=== PATIENT | male | born 1985 | race Caucasian/White ===

== ENCOUNTER 2016-03-24 22:11 | Inpatient (IN) | payer OTHER ==
[~2016-03-24] VITALS: Ht 172.7 cm; Wt 85.4 kg
[~2016-03-24 22:11] MED LIST: CITA20TA4 PO; PRAM0.256 PO; PROP20TA67 PO; PROP80TA2 PO
[2016-03-24] MEDS ORDERED: SODIUM CHLORIDE 0.9% 1000ML 1,000 ML IV STA ×2 (22:35→23:11)
[2016-03-24] MEDS ORDERED: LORAZEPAM 2 MG/ML 1 ML VIAL IV STA ×2 (22:35→23:50)
[2016-03-24 22:45] LABS: BASO % 0.4 %; BASO ABS # 0.03 K/uL (0-0.2); COMPLETE YES; HEMATOCRIT 43.8 % (42-52); IG% 0.1 %; LYMPH % 27.3 %; LYMPH ABS # 2.31 K/uL (1.2-3.4); MEAN CELL VOLUME 84.2 fL (80-100); MEAN CORPUSCULAR HEMOGLOBIN 30.6 pg (25-34); MEAN CORPUSCULAR HGB CONC 36.3 g/dl (32-36); MEAN PLATELET VOLUME 10.9 fL (7.4-10.4); NEUT % 61.2 %; PLATELET COUNT 301 K/uL (130-400); WHITE BLOOD COUNT 8.46 K/uL (4.8-10.8)
[2016-03-24] MEDS ORDERED: OMEP20TA74 PO (23:00)
[2016-03-24] MEDS ORDERED: NRV/10 PO (23:00)
[2016-03-24] MEDS ORDERED: MELA1TAB54 PO (23:00)
[2016-03-24] MEDS ORDERED: CTP1 PO (23:00)
[2016-03-24] MEDS ORDERED: ZLF/100 PO (23:00)
[2016-03-24] MEDS ORDERED: HYDR50CA2 PO (23:00)
[2016-03-24] MEDS ORDERED: IBUP-1451 PO (23:02)
[2016-03-24 23:05] LABS: ALT/SGPT 32 U/L (12-78); BLOOD UREA NITROGEN 14 mg/dl (7-18); BUN/CREATININE RATIO 7.9 (10-20); CALCIUM 10.1 mg/dl (8.5-10.1); CARBON DIOXIDE 23 mmol/L (21-32); CHLORIDE 105 mmol/L (98-107); GLUCOSE 71 mg/dl (70-99); MAGNESIUM 2.5 mg/dl (1.8-2.4); POTASSIUM 3.4 mmol/L (3.5-5.1); SODIUM 142 mmol/L (136-145)
[2016-03-24 23:13] LABS: ALKALINE PHOSPHATASE 93 U/L (45-117); AST/SGOT 34 U/L (15-37); CKMB/CK RATIO 0.8 (0-3.0)
[2016-03-24 23:17] LABS: INR 1.1 (0.9-1.1); PROTHROMBIN TIME (PATIENT) 11.7 SECONDS (9.0-12.0)
--- NOTE | 2016-03-24 23:48 | EMERGENCY ROOM VISIT NOTE ---
History Report prepared by Jean: Sierra Torres Under the Supervision of: Dr. Scott Goldman D.O. First contact with patient: 22:25 Chief Complaint: OTHER COMPLAINT Stated Complaint: HEAVY SWEAT History of Present Illness The patient is a 30 year old male who presents to the Emergency Room with complaints of increased severe sweating starting shortly [employer]PA[employer] WORK[employer]. The patient states that he was in a stressful situation at [employer] when he was accused of stealing electronics and then was confronted by the police. The patient states that when he becomes stressed he sometimes experiences a increase in diaphoresis and he has seen his PCP for this problem in the past. The patient states that he also was experiencing hypertension and that his diaphoresis could be caused from a medication interaction. He denies any headache, nausea, vomiting, abdominal pain, or any urinary symptoms. The patient states that he did drink some beer this morning but denies any other drug use today. The patient states that he does have a history of anxiety and depression but currently denies any suicidal or homicidal ideation. 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 A total of 10 systems reviewed and were otherwise negative. Past Medical & Surgical Medical Problems: (1) Alcohol withdrawal (2) Cocaine abuse (3) Depression (4) Marijuana abuse in remission Family History Cancer Diabetes mellitus Heart disease Hypertension Social History Smoking Status: Current Every Day Smoker Alcohol Use: occasionally Drug Use: marijuana Marital Status: single Housing Status: lives with family Occupation Status: employed Current/Historical Medications Scheduled Amlodipine Besylate (Amlodipine Besylate), 10 MG PO HS Bupropion HCl (Bupropion HCl Sr), 150 MG PO BID Clonidine HCl (Clonidine HCl), 0.1 MG PO DAILY Melatonin (Melatonin), 5 MG PO HS Omeprazole (Ra Omeprazole), 20 MG PO DAILY Sertraline HCl (Sertraline HCl), 100 MG PO DAILY Scheduled PRN Hydroxyzine Pamoate (Vistaril), 50 MG PO DAILY PRN for Anxiety Ibuprofen Tab (Motrin), 800 MG PO UD PRN for Pain Allergies Coded Allergies: No Known Allergies (Verified , 11/18/14) Physical Exam Vital Signs Date Time Temp Pulse Resp B/P Pulse Ox O2 Delivery O2 Flow Rate FiO2 03/25/16 01:16 102 22 03/25/16 01:11 102 22 03/25/16 01:06 100 24 03/25/16 01:01 103 19 03/25/16 00:56 102 23 03/25/16 00:51 104 18 03/25/16 00:46 102 23 03/25/16 00:41 103 15 03/25/16 00:36 105 19 03/25/16 00:31 104 19 03/25/16 00:26 102 26 03/25/16 00:21 103 23 03/25/16 00:16 103 17 03/25/16 00:11 105 19 03/25/16 00:06 112 15 03/25/16 00:01 107 20 03/24/16 23:56 108 21 03/24/16 23:51 109 15 03/24/16 23:46 104 16 03/24/16 23:46 104 17 142/103 98 Room Air 03/24/16 23:44 142/103 03/24/16 22:46 125 26 03/24/16 22:41 108 23 03/24/16 22:36 115 23 03/24/16 22:31 116 32 03/24/16 22:26 116 27 03/24/16 22:22 113 03/24/16 22:21 113 20 97 03/24/16 22:14 126/104 03/24/16 22:11 37.3 116 22 126/104 99 Room Air Physical Exam GENERAL: Patient is awake, alert, very anxious and restless appearing. EYES: The conjunctivae are clear. The pupils are round and reactive. EARS, NOSE, MOUTH AND THROAT: The nose is without any evidence of any deformity. Mucous membranes are moist tongue is midline NECK: The neck is nontender and supple. RESPIRATORY: Normal respiratory effort is noted there is no evidence of wheezing rhonchi or rales CARDIOVASCULAR: Tachycardic and regular rhythm. No murmurs were appreciated to auscultation. GASTROINTESTINAL: The abdomen is soft. Bowel sounds are present in all quadrants. Abdomen is nontender MUSCULOSKELETAL/EXTREMITIES: There is no evidence of gross deformity full range of motion is noted in the hips and shoulders SKIN: There is no obvious evidence of any rash. There are no petechiae, pallor or cyanosis noted. Cool and diaphoretic, no edema appreciated. NEUROLOGIC: Patient is awake alert and oriented x3 strength is symmetric patellar reflexes are 3+ bilaterally PSYCH: Patient was very anxious and restless appearing. Currently denies any suicidal or homicidal ideation. Appears very guarded and makes poor eye contact. Medical Decision & Procedures ER Provider Diagnostic Interpretation: X-ray results as stated below per interpretation by me: no definite infiltrate, no free air, no acute disease. Laboratory Results 03/24/16 22:05 Red Blood Count 5.20, Mean Corpuscular Volume 84.2, Mean Corpuscular Hemoglobin 30.6, Mean Corpuscular Hemoglobin Concent 36.3, Mean Platelet Volume 10.9, Neutrophils (%) (Auto) 61.2, Lymphocytes (%) (Auto) 27.3, Monocytes (%) (Auto) 9.0, Eosinophils (%) (Auto) 2.0, Basophils (%) (Auto) 0.4, Neutrophils # (Auto) 5.18, Lymphocytes # (Auto) 2.31, Monocytes # (Auto) 0.76, Eosinophils # (Auto) 0.17, Basophils # (Auto) 0.03 03/24/16 22:05 Test 03/24/16 22:05 03/24/16 22:51 03/24/16 22:53 03/24/16 23:30 White Blood Count 8.46 K/uL (4.8-10.8) Red Blood Count 5.20 M/uL (4.7-6.1) Hemoglobin 15.9 g/dL (14.0-18.0) Hematocrit 43.8 % (42-52) Mean Corpuscular Volume 84.2 fL (80-100) Mean Corpuscular Hemoglobin 30.6 pg (25-34) Mean Corpuscular Hemoglobin Concent 36.3 g/dl (32-36) Platelet Count 301 K/uL (130-400) Mean Platelet Volume 10.9 fL (7.4-10.4) Neutrophils (%) (Auto) 61.2 % Lymphocytes (%) (Auto) 27.3 % Monocytes (%) (Auto) 9.0 % Eosinophils (%) (Auto) 2.0 % Basophils (%) (Auto) 0.4 % Neutrophils # (Auto) 5.18 K/uL (1.4-6.5) Lymphocytes # (Auto) 2.31 K/uL (1.2-3.4) Monocytes # (Auto) 0.76 K/uL (0.11-0.59) Eosinophils # (Auto) 0.17 K/uL (0-0.5) Basophils # (Auto) 0.03 K/uL (0-0.2) RDW Standard Deviation 41.0 fL (36.4-46.3) RDW Coefficient of Variation 13.5 % (11.5-14.5) Immature Granulocyte % (Auto) 0.1 % Immature Granulocyte # (Auto) 0.01 K/uL (0.00-0.02) Anion Gap 14.0 mmol/L (3-11) Est Creatinine Clear Calc Drug Dose 63.2 ml/min Estimated GFR () 56.5 Estimated GFR (Non- 48.7 BUN/Creatinine Ratio 7.9 (10-20) Calcium Level 10.1 mg/dl (8.5-10.1) Magnesium Level 2.5 mg/dl (1.8-2.4) Total Bilirubin 0.4 mg/dl (0.2-1) Direct Bilirubin 0.1 mg/dl (0-0.2) Aspartate Amino Transf (AST/SGOT) 34 U/L (15-37) Alanine Aminotransferase (ALT/SGPT) 32 U/L (12-78) Alkaline Phosphatase 93 U/L (45-117) Total Creatine Kinase 380 U/L (39-308) Creatine Kinase MB 3.2 ng/ml (0.5-3.6) Creatine Kinase MB Ratio 0.8 (0-3.0) Troponin I < 0.015 ng/ml (0-0.045) Total Protein 8.3 gm/dl (6.4-8.2) Albumin 4.5 gm/dl (3.4-5.0) Lipase 187 U/L (73-393) Thyroid Stimulating Hormone (TSH) 1.030 uIu/ml (0.300-4.500) Free Thyroxine 1.10 ng/dl (0.80-1.60) Ethyl Alcohol mg/dL < 3.0 mg/dl (0-3) Prothrombin Time 11.7 SECONDS (9.0-12.0) Prothromb Time International Ratio 1.1 (0.9-1.1) Activated Partial Thromboplast Time 27.0 SECONDS (21.0-31.0) Partial Thromboplastin Ratio 1.0 Urine Color YELLOW Urine Appearance CLEAR (CLEAR) Urine pH 5.0 (4.5-7.5) Urine Specific [place] 1.022 (1.000-1.030) Urine Protein NEG (NEG) Urine Glucose (UA) NEG (NEG) Urine Ketones NEG (NEG) Urine Occult Blood NEG (NEG) Urine Nitrite NEG (NEG) Urine Bilirubin NEG (NEG) Urine Urobilinogen NEG (NEG) Urine Leukocyte Esterase SMALL (NEG) Urine WBC (Auto) 10-30 /hpf (0-5) Urine RBC (Auto) 0-4 /hpf (0-4) Urine Hyaline Casts (Auto) >30 /lpf (0-5) Urine Epithelial Cells (Auto) 20-30 /lpf (0-5) Urine Bacteria (Auto) 1+ (NEG) Urine Pathogenic Casts /lpf (0) Urine Mucus PRESENT (NONE PRSENT) Urine Opiates Screen POS (NEG) Urine Methadone, Qualitative NEG (NEG) Urine Barbiturates NEG (NEG) Ur Amphetamine/Methamphetamine POS (NEG) MDMA (Ecstasy) Screen POS (NEG) Urine Benzodiazepines Screen NEG (NEG) Urine Cocaine Metabolite NEG (NEG) Urine Marijuana (THC) POS (NEG) Laboratory results per my review. Medications Administered Medications (Trade) Dose Ordered Sig/Cathie Route Start Time Stop Time Status Last Admin Dose Admin Sodium Chloride (Nss 1000ml) 1,000 ml @ 999 mls/hr Q1H1M STAT IV 03/24/16 22:35 03/24/16 23:35 DC 03/24/16 23:10 999 MLS/HR Lorazepam 1 mg 1 mg NOW STAT IV 03/24/16 22:35 03/24/16 22:38 DC 03/24/16 23:10 1 MG Sodium Chloride (Nss 1000ml) 1,000 ml @ 999 mls/hr Q1H1M STAT IV 03/24/16 23:11 03/25/16 00:11 DC 03/24/16 23:49 999 MLS/HR Lorazepam (Ativan Inj) 1 mg NOW STAT IV 03/24/16 23:50 03/24/16 23:51 DC 03/24/16 23:55 1 MG Ceftriaxone Sodium (Rocephin Inj) 1 gm NOW STAT IV 03/25/16 00:26 03/25/16 00:27 DC 03/25/16 00:31 1 GM ECG Indication: diaphoresis Rate (beats per minute): 125 Rhythm: normal sinus Findings: no acute ischemic change, no ectopy Comparison ECG Date: November 18, 2014 Change: increase rate from previous ECG. ED Course 2229: The patient was evaluated in room C10. A complete history and physical examination were performed. 2235: Ordered Ativan Inj 1 mg IV, NSS 1,000 ml @ 999 mls/hr IV, NSS 1,000 ml @ 999 mls/hr IV, 2345: I reevaluated the patient and he was hemodynamically stable. 2350: Ordered Ativan Inj 1 mg IV. 6: Ordered Rocephin Inj 1 gm IV. 0:I discussed the case with [facility]. He agreed to evaluate the patient for further management and care. Medical Decision Differential diagnosis: Etiologies such as mood disorder, infection, hypoglycemia, electrolyte abnormalities, cardiac sources, intracerebral event, toxicologic, neurologic, as well as others were entertained. Nursing notes reviewed. Additional history is obtained from the prehospital personnel. The patient is a 30-year-old male who presented to the emergency department for an evaluation of diaphoresis. The patient was severely diaphoretic. He had hyperreflexia as well. At this time I would suspect this is toxic metabolic in nature. The patient was treated with IV fluids as well as IV benzodiazepines. He was also started on IV antibiotics for presumed urinary tract infection. I discussed the patient's laboratory and radiographic studies with him. He was reevaluated multiple times. He responded well to the IV benzodiazepine. I do feel that the patient's toxicology screen could explain some of his symptoms. Because the patient's elevated creatinine I also discussed his case with the on- call [facility] hospitalist group. They've agreed to evaluate the patient in the emergency department for further management and disposition. Consults Time Called: [phone] Consulting Physician: Dr. Kala FULTON Hospitalist Returned Call: [phone] I discussed the case with Dr. [facility]. He agreed to evaluate the patient for further management and care. Impression Primary Impression: Anxiety Additional Impressions: Diaphoresis Dehydration Acute kidney injury Drug abuse Possible Medicato Reaction Scribe Attestation The scribe's documentation has been prepared under my direction and personally reviewed by me in its entirety. I confirm that the note above accurately reflects all work, treatment, procedures, and medical decision making performed by me. Departure Information Dispostion Being Evaluated By Hospitalist Referrals Anshu Inman D.O.Int.Med. (PCP) Problem Qualifiers
[2016-03-25] VITALS (10 sets, daily range): BP systolic 122–156; BP diastolic 75–120; PULSE 80–105; TEMP 36.5–36.8; O2SAT 93–99; Ht 172.7 cm; Wt 85.4 kg
[2016-03-25 00:05] LABS: URINE APPEARANCE CLEAR (CLEAR); URINE BILIRUBIN NEG (NEG); URINE COLOR YELLOW; URINE EPITHELIAL CELL AUTO 20-30 /lpf (0-5); URINE NITRITE NEG (NEG); URINE SPECIFIC GRAVITY 1.022 (1.000-1.030); UROBILINOGEN NEG (NEG)
[2016-03-25 00:07] LABS: MANUAL MICROSCOPIC REQUIRED? NO; REVIEW REQ? YES
[2016-03-25 00:21] LABS: URINE MUCUS PRESENT (NONE PRSENT)
[2016-03-25] MEDS ORDERED: CEFTRIAXONE SOD INJ 1 GM ADDVIAL IV STA (00:26)
[2016-03-25 00:27] LABS: BENZODIAZEPINE, URINE NEG (NEG); COCAINE,URINE NEG (NEG); PHENCYCLIDINE, URINE POS (NEG)
[2016-03-25] MEDS ORDERED: ZOLPIDEM TARTRATE 5 MG TAB PO PRN (01:30)
[2016-03-25] MEDS ORDERED: hydrOXYzine HCL 25 MG TAB PO PRN (01:30)
[2016-03-25] MEDS ORDERED: ONDANSETRON INJ 2 MG/ML 2 ML VIAL IV PRN (01:30)
[2016-03-25] MEDS ORDERED: ACETAMINOPHEN 325 MG TAB PO PRN (01:30)
[2016-03-25] MEDS ORDERED: IV FLUIDS COMPLETED PRN (01:45)
[2016-03-25] MEDS: NSS + 20MEQ KCL 1000ML 1,000 ML IV SCH ×2 (02:31→08:41)
--- NOTE | 2016-03-25 06:43 | History and Physical ---
History & Physical Date & Time of Service: Mar 25, 2016 at 06:34 Chief Complaint: Acute Kidney Injury, Dehydration Primary Care Physician: Anshu Inman D.O.Int.Med. History of Present Illness Source: patient The patient is a 30-year-old male who presents emergency department with complaint of increased severe sweating that began just prior to arrival. He reportedly was in a stressful situation at [employer] is accused of stealing electronics was a confirmed by police. The patient reports that he not uncommonly has increase in sweating during stressful situations, and is been seen by his PCP in the past. The patient reports he drank beer earlier in the morning, but denies any other drug use today he has history of anxiety and depression has never had any issues with suicidal or homicidal ideation. Past Medical/Surgical History Medical Problems: (1) Cocaine abuse Status: Resolved (2) Depression Status: Chronic (3) Marijuana abuse in remission Status: Resolved Family History Cancer Diabetes mellitus Heart disease Hypertension Social History Smoking Status: Current Every Day Smoker Smokeless Tobacco Use: No Alcohol Use: none Drug Use: marijuana Marital Status: single Occupational Status: employed Immunizations History of Tetanus Vaccine?: DATE UNKNOWN History of Pneumococcal: No History of Hepatitis B Vaccine: No Multi-Drug Resistant Organisms History of MDRO: No Allergies Coded Allergies: No Known Allergies (Verified , 11/18/14) Home Medications Scheduled Amlodipine Besylate (Amlodipine Besylate), 10 MG PO HS Bupropion HCl (Bupropion HCl Sr), 150 MG PO BID Clonidine HCl (Clonidine HCl), 0.1 MG PO DAILY Melatonin (Melatonin), 5 MG PO HS Omeprazole (Ra Omeprazole), 20 MG PO DAILY Sertraline HCl (Sertraline HCl), 100 MG PO DAILY Scheduled PRN Hydroxyzine Pamoate (Vistaril), 50 MG PO DAILY PRN for Anxiety Ibuprofen Tab (Motrin), 800 MG PO UD PRN for Pain Review of Systems The patient denies chest pain, palpitations, shortness of breath, cough, lower extremity swelling, vision change, hearing change, sore throat, fevers, chills, weight change, fatigue, nausea, vomiting, abdominal pain, pelvic pain, blood in urine or stool, dysuria, urinary frequency or urgency, headache, memory loss, rash, abnormal bruising or bleeding, imbalance, focal or generalized weakness, numbness or tingling in arms or legs, arthralgias or myalgias, back or neck pain. The review of systems is otherwise negative other than for that already noted above, and at least 10 systems have been reviewed. Physical Exam Vital Signs Date Time Temp Pulse Resp B/P Pulse Ox O2 Delivery O2 Flow Rate FiO2 03/25/16 04:50 36.8 102 18 148/97 98 Room Air 03/25/16 04:00 Room Air 03/25/16 01:50 36.8 105 20 122/75 96 Room Air 03/25/16 01:42 103 23 129/98 96 03/25/16 01:16 102 22 03/25/16 01:11 102 22 03/25/16 01:06 100 24 03/25/16 01:01 103 19 03/25/16 00:56 102 23 03/25/16 00:51 104 18 03/25/16 00:46 102 23 03/25/16 00:41 103 15 03/25/16 00:36 105 19 03/25/16 00:31 104 19 03/25/16 00:26 102 26 03/25/16 00:21 103 23 03/25/16 00:16 103 17 03/25/16 00:11 105 19 03/25/16 00:06 112 15 03/25/16 00:01 107 20 03/24/16 23:56 108 21 03/24/16 23:51 109 15 03/24/16 23:46 104 16 03/24/16 23:46 104 17 142/103 98 Room Air 03/24/16 23:44 142/103 03/24/16 22:46 125 26 03/24/16 22:41 108 23 03/24/16 22:36 115 23 03/24/16 22:31 116 32 03/24/16 22:26 116 27 03/24/16 22:22 113 03/24/16 22:21 113 20 97 03/24/16 22:14 126/104 03/24/16 22:11 37.3 116 22 126/104 99 Room Air The patient is awake, well-developed and adequately nourished, alert and oriented 3, normocephalic and atraumatic, lying in bed and in no acute distress with mild to moderate perspiration. HEENT--PERRL, EOMI, mucous membranes moist, and oropharynx normal. Neck--supple, no JVD or bruits, thyroid normal, trachea midline, no adenopathy. Heart--normal S1 and S2, no extra beats, no murmurs, rubs or gallops. Lungs--clear bilaterally with good air movement, no respiratory distress, no accessory muscle use. Abdomen--normal bowel sounds and soft, nontender and nondistended, no hernias or masses, no organomegaly. Extremities--no cyanosis, clubbing or edema. There are good distal pulses b/l. Dermatologic--normal skin turgor, normal color, warm and dry, no abnormal lymph nodes, no rash. Neurologic--cranial nerves II through XII grossly intact, motor and sensory examination normal, vestibular function is normal. Rheumatologic--normal range of motion, nontender, muscles and joints. Psychiatric--normal affect. Diagnostics Laboratory Results Results Past 24 Hours Test 03/24/16 22:05 03/24/16 22:51 03/24/16 22:53 03/24/16 23:30 Range/Units White Blood Count 8.46 4.8-10.8 K/uL Red Blood Count 5.20 4.7-6.1 M/uL Hemoglobin 15.9 14.0-18.0 g/dL Hematocrit 43.8 42-52 % Mean Corpuscular Volume 84.2 80-100 fL Mean Corpuscular Hemoglobin 30.6 25-34 pg Mean Corpuscular Hemoglobin Concent 36.3 32-36 g/dl Platelet Count 301 130-400 K/uL Mean Platelet Volume 10.9 7.4-10.4 fL Neutrophils (%) (Auto) 61.2 % Lymphocytes (%) (Auto) 27.3 % Monocytes (%) (Auto) 9.0 % Eosinophils (%) (Auto) 2.0 % Basophils (%) (Auto) 0.4 % Neutrophils # (Auto) 5.18 1.4-6.5 K/uL Lymphocytes # (Auto) 2.31 1.2-3.4 K/uL Monocytes # (Auto) 0.76 0.11-0.59 K/uL Eosinophils # (Auto) 0.17 0-0.5 K/uL Basophils # (Auto) 0.03 0-0.2 K/uL RDW Standard Deviation 41.0 36.4-46.3 fL RDW Coefficient of Variation 13.5 11.5-14.5 % Immature Granulocyte % (Auto) 0.1 % Immature Granulocyte # (Auto) 0.01 0.00-0.02 K/uL Sodium Level 142 136-145 mmol/L Potassium Level 3.4 3.5-5.1 mmol/L Chloride Level 105 98-107 mmol/L Carbon Dioxide Level 23 21-32 mmol/L Anion Gap 14.0 3-11 mmol/L Blood Urea Nitrogen 14 7-18 mg/dl Creatinine 1.80 0.60-1.40 mg/dl Est Creatinine Clear Calc Drug Dose 63.2 ml/min Estimated GFR () 56.5 Estimated GFR (Non- 48.7 BUN/Creatinine Ratio 7.9 10-20 Random Glucose 71 70-99 mg/dl Calcium Level 10.1 8.5-10.1 mg/dl Magnesium Level 2.5 1.8-2.4 mg/dl Total Bilirubin 0.4 0.2-1 mg/dl Direct Bilirubin 0.1 0-0.2 mg/dl Aspartate Amino Transf (AST/SGOT) 34 15-37 U/L Alanine Aminotransferase (ALT/SGPT) 32 12-78 U/L Alkaline Phosphatase 93 45-117 U/L Total Creatine Kinase 380 39-308 U/L Creatine Kinase MB 3.2 0.5-3.6 ng/ml Creatine Kinase MB Ratio 0.8 0-3.0 Troponin I < 0.015 0-0.045 ng/ml Total Protein 8.3 6.4-8.2 gm/dl Albumin 4.5 3.4-5.0 gm/dl Lipase 187 73-393 U/L Thyroid Stimulating Hormone (TSH) 1.030 0.300-4.500 uIu/ml Free Thyroxine 1.10 0.80-1.60 ng/dl Ethyl Alcohol mg/dL < 3.0 0-3 mg/dl Prothrombin Time 11.7 9.0-12.0 SECONDS Prothromb Time International Ratio 1.1 0.9-1.1 Activated Partial Thromboplast Time 27.0 21.0-31.0 SECONDS Partial Thromboplastin Ratio 1.0 Urine Color YELLOW Urine Appearance CLEAR CLEAR Urine pH 5.0 4.5-7.5 Urine Specific [place] 1.022 1.000-1.030 Urine Protein NEG NEG Urine Glucose (UA) NEG NEG Urine Ketones NEG NEG Urine Occult Blood NEG NEG Urine Nitrite NEG NEG Urine Bilirubin NEG NEG Urine Urobilinogen NEG NEG Urine Leukocyte Esterase SMALL NEG Urine WBC (Auto) 10-30 0-5 /hpf Urine RBC (Auto) 0-4 0-4 /hpf Urine Hyaline Casts (Auto) >30 0-5 /lpf Urine Epithelial Cells (Auto) 20-30 0-5 /lpf Urine Bacteria (Auto) 1+ NEG Urine Pathogenic Casts 0 /lpf Urine Mucus PRESENT NONE PRSENT Urine Opiates Screen POS NEG Urine Methadone, Qualitative NEG NEG Urine Barbiturates NEG NEG Urine Phencyclidine (PCP) Level POS NEG Ur Amphetamine/Methamphetamine POS NEG MDMA (Ecstasy) Screen POS NEG Urine Benzodiazepines Screen NEG NEG Urine Cocaine Metabolite NEG NEG Urine Marijuana (THC) POS NEG Microbiology Results 03/24/16 Urine Culture, Received Pending CXR normal EKG EKG shows sinus tachycardia 112 bpm, there are no acute ST-T changes. Impression Assessment and Plan Increased sweating/sinus tachycardia/acute renal insufficiency/hypokalemia/ urine drug screen positive for opiates, PCP, amphetamines, MDMA and marijuana-- the patient will be admitted to the telemetry unit, for cardiac rhythm monitoring, and possible drug withdrawal effects. He'll be placed on normal saline with potassium chloride 20 mEq at 200 ML's per hour. Follow serial CBC with differential PRP and magnesium levels. Hypertension--continue amlodipine 10 mg by mouth at bedtime and clonidine 0.1 mg by mouth daily. GERD-change omeprazole 20 mg by mouth daily to pantoprazole 40 mg by mouth daily. Anxiety--continue sertraline 100 mg by mouth daily, bupropion SR 150 mg by mouth twice a day and melatonin 5 mg by mouth at bedtime. Also continue hydroxyzine 50 mg by mouth daily when necessary. Tobacco use disorder with multi-substance abuse--counseling will be necessary. Level of Care Telemetry Advanced Directives Existing Advance Directive: No Existing Living Will: No Existing Power of Call Worker Person: No Resuscitation Status FULL RESUSCITATION VTE Prophylaxis VTE Risk Assessment Done? Y/N: Yes Risk Level: Low Given or contraindicated: SCD's Social Service Consult None Apply
--- NOTE | 2016-03-25 07:03 | DIAGNOSTIC IMAGING REPORT ---
CHEST ONE VIEW PORTABLE CLINICAL HISTORY: anxiety COMPARISON STUDY: 11/18/2014 FINDINGS: The cardiac and mediastinal contours are normal. There is no evidence of focal pulmonary consolidation. There is no evidence of failure. No pleural effusions are visualized.[ IMPRESSION: No active disease in the chest. Electronically signed by: Lorenzo Roth M.D. 03/25/2016 7:01 AM Dictated Date/Time: 03/25/2016 7:01 AM
[2016-03-25] MEDS: SERTRALINE HCL 100 MG TAB PO SCH (07:49)
[2016-03-25] MEDS: PANTOprazole SOD 40 MG TAB PO SCH (07:49)
[2016-03-25] MEDS: AMLODIPINE BESYLATE 5 MG TAB PO SCH (07:50)
[2016-03-25] MEDS: BuPROPion SR 150 MG TABCR PO SCH ×2 (07:50→20:37)
[2016-03-25] MEDS ORDERED: CLONIDINE HCL 0.1 MG TAB PO SCH (09:00)
[2016-03-25] MEDS ORDERED: CLONAZEPAM 0.5 MG TAB PO STA (12:24)
--- NOTE | 2016-03-25 12:28 | Progress Note ---
Subjective Date of Service: Mar 25, 2016. Subjective increased sweating and pressured speech no further breathing issues Problem List Medical Problems: (1) Acute kidney injury Status: Acute (2) Anxiety Status: Acute (3) Dehydration Status: Acute (4) Diaphoresis Status: Acute (5) Drug abuse Status: Acute Review of Systems Constitutional: + chills, + fever, + weakness Cardiac: + chest pain, + claudication, + edema Abdomen: + diarrhea, + nausea, + pain, + vomiting Male : + dysuria, + urinary frequency Psychiatric: + anxiety, + substance abuse Objective Vital Signs Date Time Temp Pulse Resp B/P Pulse Ox O2 Delivery O2 Flow Rate FiO2 03/25/16 12:00 98 Room Air 03/25/16 11:00 36.6 94 20 156/108 99 Room Air 03/25/16 08:00 98 Room Air 03/25/16 07:41 36.7 95 20 149/120 98 Room Air 149/100 03/25/16 04:50 36.8 102 18 148/97 98 Room Air 03/25/16 04:00 Room Air 03/25/16 01:50 36.8 105 20 122/75 96 Room Air 03/25/16 01:42 103 23 129/98 96 03/25/16 01:16 102 22 03/25/16 01:11 102 22 03/25/16 01:06 100 24 03/25/16 01:01 103 19 03/25/16 00:56 102 23 03/25/16 00:51 104 18 03/25/16 00:46 102 23 03/25/16 00:41 103 15 03/25/16 00:36 105 19 03/25/16 00:31 104 19 03/25/16 00:26 102 26 03/25/16 00:21 103 23 03/25/16 00:16 103 17 03/25/16 00:11 105 19 03/25/16 00:06 112 15 03/25/16 00:01 107 20 03/24/16 23:56 108 21 03/24/16 23:51 109 15 03/24/16 23:46 104 16 03/24/16 23:46 104 17 142/103 98 Room Air 03/24/16 23:44 142/103 03/24/16 22:46 125 26 03/24/16 22:41 108 23 03/24/16 22:36 115 23 03/24/16 22:31 116 32 03/24/16 22:26 116 27 03/24/16 22:22 113 03/24/16 22:21 113 20 97 03/24/16 22:14 126/104 03/24/16 22:11 37.3 116 22 126/104 99 Room Air Physical Exam General Appearance: WD/WN, + mild distress Eyes: PERRL, EOMI Neck: supple, no JVD Respiratory/Chest: chest non-tender, lungs clear, normal breath sounds Cardiovascular: regular rate, rhythm, no murmur Abdomen: normal bowel sounds, non tender, soft Neurologic/Psychiatric: alert, oriented x 3 Laboratory Results Last 24 Hours Test 03/24/16 22:05 03/24/16 22:51 03/24/16 22:53 03/24/16 23:30 White Blood Count 8.46 K/uL Red Blood Count 5.20 M/uL Hemoglobin 15.9 g/dL Hematocrit 43.8 % Mean Corpuscular Volume 84.2 fL Mean Corpuscular Hemoglobin 30.6 pg Mean Corpuscular Hemoglobin Concent 36.3 g/dl Platelet Count 301 K/uL Mean Platelet Volume 10.9 fL Neutrophils (%) (Auto) 61.2 % Lymphocytes (%) (Auto) 27.3 % Monocytes (%) (Auto) 9.0 % Eosinophils (%) (Auto) 2.0 % Basophils (%) (Auto) 0.4 % Neutrophils # (Auto) 5.18 K/uL Lymphocytes # (Auto) 2.31 K/uL Monocytes # (Auto) 0.76 K/uL Eosinophils # (Auto) 0.17 K/uL Basophils # (Auto) 0.03 K/uL RDW Standard Deviation 41.0 fL RDW Coefficient of Variation 13.5 % Immature Granulocyte % (Auto) 0.1 % Immature Granulocyte # (Auto) 0.01 K/uL Sodium Level 142 mmol/L Potassium Level 3.4 mmol/L Chloride Level 105 mmol/L Carbon Dioxide Level 23 mmol/L Anion Gap 14.0 mmol/L Blood Urea Nitrogen 14 mg/dl Creatinine 1.80 mg/dl Est Creatinine Clear Calc Drug Dose 63.2 ml/min Estimated GFR () 56.5 Estimated GFR (Non- 48.7 BUN/Creatinine Ratio 7.9 Random Glucose 71 mg/dl Calcium Level 10.1 mg/dl Magnesium Level 2.5 mg/dl Total Bilirubin 0.4 mg/dl Direct Bilirubin 0.1 mg/dl Aspartate Amino Transf (AST/SGOT) 34 U/L Alanine Aminotransferase (ALT/SGPT) 32 U/L Alkaline Phosphatase 93 U/L Total Creatine Kinase 380 U/L Creatine Kinase MB 3.2 ng/ml Creatine Kinase MB Ratio 0.8 Troponin I < 0.015 ng/ml Total Protein 8.3 gm/dl Albumin 4.5 gm/dl Lipase 187 U/L Thyroid Stimulating Hormone (TSH) 1.030 uIu/ml Free Thyroxine 1.10 ng/dl Ethyl Alcohol mg/dL < 3.0 mg/dl Prothrombin Time 11.7 SECONDS Prothromb Time International Ratio 1.1 Activated Partial Thromboplast Time 27.0 SECONDS Partial Thromboplastin Ratio 1.0 Urine Color YELLOW Urine Appearance CLEAR Urine pH 5.0 Urine Specific [place] 1.022 Urine Protein NEG Urine Glucose (UA) NEG Urine Ketones NEG Urine Occult Blood NEG Urine Nitrite NEG Urine Bilirubin NEG Urine Urobilinogen NEG Urine Leukocyte Esterase SMALL Urine WBC (Auto) 10-30 /hpf Urine RBC (Auto) 0-4 /hpf Urine Hyaline Casts (Auto) >30 /lpf Urine Epithelial Cells (Auto) 20-30 /lpf Urine Bacteria (Auto) 1+ Urine Pathogenic Casts /lpf Urine Mucus PRESENT Urine Opiates Screen POS Urine Methadone, Qualitative NEG Urine Barbiturates NEG Urine Phencyclidine (PCP) Level POS Ur Amphetamine/Methamphetamine POS MDMA (Ecstasy) Screen POS Urine Benzodiazepines Screen NEG Urine Cocaine Metabolite NEG Urine Marijuana (THC) POS Assessment and Plan Increased sweating/sinus tachycardia/acute renal insufficiency/hypokalemia/ urine drug screen positive for opiates, PCP, amphetamines, MDMA and marijuana- possible drug withdrawal effects. PT is anxious and will attempt to control symptoms by adding some librium and clonidine increase Hypertension--continue amlodipine 10 mg by mouth at bedtime and clonidine 0.1 mg by mouth daily. GERD-change omeprazole 20 mg by mouth daily to pantoprazole 40 mg by mouth daily. Anxiety--continue sertraline 100 mg by mouth daily, bupropion SR 150 mg by mouth twice a day and melatonin 5 mg by mouth at bedtime. Also continue hydroxyzine 50 mg by mouth daily when necessary. Tobacco use disorder with multi-substance abuse--counseling will be necessary.
[2016-03-25] MEDS ORDERED: CLONAZEPAM 1 MG TAB PO PRN (12:30)
[2016-03-25] MEDS: CHLORDIAZEPOXIDE 25 MG CAP PO SCH ×2 (13:19→20:37)
[2016-03-25] MEDS: CLONIDINE HCL 0.1 MG TAB PO SCH (20:38)
[2016-03-25] MEDS ORDERED: NON-FORMULARY MEDICATION (Melatonin 5 MG) PO SCH (21:00)
[2016-03-26 04:08] VITALS: BP 128/85; PULSE 77; TEMP 36.6; O2SAT 97
[2016-03-26 07:08] LABS: BASO % 0.5 %; BASO ABS # 0.03 K/uL (0-0.2); COMPLETE YES; EOS % 4.5 %; HEMATOCRIT 43.6 % (42-52); IG% 0.2 %; LYMPH % 26.6 %; LYMPH ABS # 1.72 K/uL (1.2-3.4); MEAN CELL VOLUME 87.2 fL (80-100); MEAN CORPUSCULAR HGB CONC 34.4 g/dl (32-36); MEAN PLATELET VOLUME 10.2 fL (7.4-10.4); MONO % 9.4 %; NEUT % 58.8 %; PLATELET COUNT 216 K/uL (130-400); WHITE BLOOD COUNT 6.47 K/uL (4.8-10.8)
[2016-03-26 07:16] LABS: PARTIAL THROMBOPLASTIN RATIO 1.1; PROTHROMBIN TIME (PATIENT) 11.1 SECONDS (9.0-12.0)
[2016-03-26 07:40] VITALS: BP 139/91; PULSE 81; TEMP 36.7; O2SAT 97
[2016-03-26 07:49] LABS: ALKALINE PHOSPHATASE 86 U/L (45-117); ALT/SGPT 31 U/L (12-78); AST/SGOT 18 U/L (15-37); BLOOD UREA NITROGEN 11 mg/dl (7-18); BUN/CREATININE RATIO 10.9 (10-20); CALCIUM 9.2 mg/dl (8.5-10.1); CARBON DIOXIDE 28 mmol/L (21-32); CHLORIDE 106 mmol/L (98-107); GLUCOSE 83 mg/dl (70-99); MAGNESIUM 2.6 mg/dl (1.8-2.4); POTASSIUM 4.3 mmol/L (3.5-5.1); SODIUM 142 mmol/L (136-145)
[2016-03-26] MEDS: PANTOprazole SOD 40 MG TAB PO SCH (08:08)
[2016-03-26] MEDS: AMLODIPINE BESYLATE 5 MG TAB PO SCH (08:08)
[2016-03-26] MEDS: BuPROPion SR 150 MG TABCR PO SCH (08:08)
[2016-03-26] MEDS: CLONIDINE HCL 0.1 MG TAB PO SCH (08:09)
[2016-03-26] MEDS: CHLORDIAZEPOXIDE 25 MG CAP PO SCH ×2 (08:09→13:42)
[2016-03-26] MEDS: SERTRALINE HCL 100 MG TAB PO SCH (08:09)
[2016-03-26] MEDS ORDERED: LBR25 PO (08:32)
[2016-03-26] MEDS ORDERED: CTP1 PO (08:32)
--- NOTE | 2016-03-26 08:34 | Discharge Instructions ---
Discharge Instructions Admission Reason for Admission: Alcohol Withdrawal Discharge Discharge Diagnosis / Problem: anxiety, withdrawal Discharge Goals Goal(s): Diagnostic testing, Therapeutic intervention Activity Recommendations Activity Limitations: resume your previous activity . Instructions / Follow-Up Instructions / Follow-Up Please see DR Inman this week before your prescrition runs out please take no medicines, over the counter or otherwise, except what is listed on your discharge Current Hospital Diet Patient's current hospital diet: Regular Diet Discharge Diet Recommended Diet: Regular Diet Pending Studies Studies pending at discharge: no Medical Emergencies . Who to Call and When: Medical Emergencies: If at any time you feel your situation is an emergency, please call 911 immediately. . Non-Emergent Contact Non-Emergency issues call your: Primary Care Provider . . "Provider Documentation" section prepared by Shamar Longo. VTE Core Measure Inpt VTE Proph given/why not?: SCD's
[2016-03-26 09:14] VITALS: BP 139/91; PULSE 81; TEMP 36.7; O2SAT 97
--- NOTE | 2016-03-26 10:43 | Discharge Summary ---
Discharge Summary Admission Date: Mar 25, 2016 at 15:18 Discharge Date: Mar 26, 2016 Discharge Disposition: Home Principal Diagnosis: withdrawal symptoms Immunizations: History of Tetanus Vaccine?: DATE UNKNOWN History of Pneumococcal: No History of Hepatitis B Vaccine: No Medication Reconciliation New Medications: Chlordiazepoxide (Chlordiazepoxide HCl) 25 Mg Cap 25 MG PO UD, #18 CAP 3x's a day for three days then 2x's a day for three days then once at bedtime for three days Changed Medications: Clonidine HCl (Clonidine HCl) 0.1 Mg Tab 0.1 MG PO BID, #60 DOSE 3 Refills (Changed from: DAILY; Refills: ) Continued Medications: Amlodipine Besylate (Amlodipine Besylate) 10 Mg Tab 10 MG PO HS Bupropion HCl (Bupropion HCl Sr) 150 Mg Tabcr 150 MG PO BID Ibuprofen Tab (Motrin) 800 Mg Tab 800 MG PO UD PRN for Pain, TAB TAKE DIRECTED Melatonin (Melatonin) 5 Mg Tab 5 MG PO HS Omeprazole (Ra Omeprazole) 20 Mg Tab 20 MG PO DAILY Sertraline HCl (Sertraline HCl) 100 Mg Tab 100 MG PO DAILY Discontinued Medications: Hydroxyzine Pamoate (Vistaril) 50 Mg Cap 50 MG PO DAILY PRN for Anxiety Discharge Exam Review of Systems: Constitutional: No chills, No fever Respiratory: No cough, No sputum Cardiovascular: No chest pain, No orthopnea Abdomen: No nausea, No pain Musculoskeletal: No joint pain, No muscle pain Neurologic: No memory loss, No paralysis Psychiatric: No anhedonism, No depression symptoms Physical Exam: General Appearance: WD/WN, no apparent distress Eyes: PERRL, EOMI Neck: supple, no JVD Respiratory/Chest: chest non-tender, lungs clear, normal breath sounds Cardiovascular: regular rate, rhythm, no murmur Abdomen / GI: normal bowel sounds, non tender, soft Hospital Course 30 M with multiple substances on tox screen here with Increased sweating/sinus tachycardia/acute renal insufficiency/hypokalemia Drug withdrawal effects. PT is anxious and able control symptoms by adding some librium and clonidine increase, will have home on tapering librium but campbell instructions to see pcp for further management and possible referal to outpt treatment of substance issues Hypertension--continue amlodipine 10 mg by mouth at bedtime and clonidine 0.1 mg bid GERD-change omeprazole 20 mg Anxiety--continue sertraline 100 mg by mouth daily, bupropion SR 150 mg by mouth twice a day and melatonin 5 mg by mouth at bedtime. Tobacco use disorder with multi-substance abuse--counseling will be necessary. Total Time Spent: Greater than 30 minutes This includes examination of the patient, discharge planning, medication reconciliation, and communication with other providers. Discharge Instructions Please refer to the electronic Patient Visit Report (Discharge Instructions) for additional information.
[2016-03-26 11:41] VITALS: BP 127/84; PULSE 71; TEMP 36.9; O2SAT 98
[2016-03-29 04:25] LABS: COD UR NEGATIVE NG/ML (CUTOFF=50); HYDROCOD UR NEGATIVE NG/ML (CUTOFF=50); HYDROMOR UR NEGATIVE NG/ML (CUTOFF=50); MORPHINE UR NEGATIVE NG/ML (CUTOFF=50); NORHYDROCODONE CONF UR NEGATIVE NG/ML (CUTOFF=50); OXYMORPH UR NEGATIVE NG/ML (CUTOFF=50)
[2016-03-30 13:33] LABS: SYNTHETIC CANNABINOIDS QL URIN NEGATIVE (Negative)
== END 2016-03-26 14:37 | disposition home or self-care (01) | DRG 897 ==
LOC: ENRESERVDT → ENRESERVTM → EDBD 22:11 → C.EDC 22:13 → C.2T 03-25 01:26 → OBSVTOIN 03-25 15:18
PROVIDERS: ADMIT Hospitalist; ATTEND Internal Medicine
DX: F10.239 Alcohol dependence with withdrawal, unspecified (principal); N17.9 Acute kidney failure, unspecified; F41.9 Anxiety disorder, unspecified; F32.9 Major depressive disorder, single episode, unspecified; F19.939 Other psychoactive substance use, unspecified with withdrawal, unspecified; E86.0 Dehydration; E87.6 Hypokalemia; K21.9 Gastro-esophageal reflux disease without esophagitis; I10 Essential (primary) hypertension; F17.210 Nicotine dependence, cigarettes, uncomplicated; F19.10 Other psychoactive substance abuse, uncomplicated; R82.5 Elevated urine levels of drugs, medicaments and biological substances; R61 Generalized hyperhidrosis; R00.0 Tachycardia, unspecified; Z79.899 Other long term (current) drug therapy; Z79.1 Long term (current) use of non-steroidal anti-inflammatories (NSAID)

== ENCOUNTER 2016-04-01 02:34 | Emergency (ER) | payer OTHER ==
[~2016-04-01] VITALS: Ht 172.7 cm; Wt 87.0 kg
[~2016-04-01 02:34] MED LIST changes: -CITA20TA4 PO; +CTP1 PO; +IBUP-1451 PO; +LBR25 PO; +MELA1TAB54 PO; +NRV/10 PO; +OMEP20TA74 PO; -PRAM0.256 PO; -PROP20TA67 PO; -PROP80TA2 PO; +ZLF/100 PO
[2016-04-01] MEDS ORDERED: SODIUM CHLORIDE 0.9% 1000ML 1,000 ML IV STA (02:41)
[2016-04-01 03:07] VITALS: O2SAT 95
[2016-04-01 03:16] VITALS: TEMP 36.8; Ht 172.7 cm; Wt 87.0 kg
[2016-04-01 03:29] LABS: URINE APPEARANCE CLEAR (CLEAR); URINE BILIRUBIN NEG (NEG); URINE COLOR YELLOW; URINE NITRITE NEG (NEG); URINE SPECIFIC GRAVITY 1.002 (1.000-1.030); UROBILINOGEN NEG (NEG)
[2016-04-01 03:36] LABS: MANUAL MICROSCOPIC REQUIRED? NO; REVIEW REQ? NO
[2016-04-01 04:08] LABS: BASO % 0.4 %; BASO ABS # 0.02 K/uL (0-0.2); COMPLETE YES; EOS % 3.5 %; HEMATOCRIT 40.3 % (42-52); IG% 0.2 %; MEAN CELL VOLUME 87.2 fL (80-100); MEAN CORPUSCULAR HEMOGLOBIN 30.7 pg (25-34); MEAN CORPUSCULAR HGB CONC 35.2 g/dl (32-36); MEAN PLATELET VOLUME 10.4 fL (7.4-10.4); MONO % 8.1 %; NEUT % 50.8 %; PLATELET COUNT 212 K/uL (130-400); RED BLOOD COUNT 4.62 M/uL (4.7-6.1); WHITE BLOOD COUNT 5.67 K/uL (4.8-10.8)
--- NOTE | 2016-04-01 04:17 | EMERGENCY ROOM VISIT NOTE ---
History Report prepared by Jean: Carlos Byrne Under the Supervision of: Dr. Taz Quiñones M.D. First contact with patient: 02:37 Chief Complaint: OVERDOSE (INTENTIONAL) Stated Complaint: OVERDOSE History of Present Illness The patient is a 30 year old male who presents to the Emergency Room with complaints of an episode of intentional overdose occurring this evening. He reports he was drinking Robitussin earlier today. History is limited secondary to overdose. Source of History: patient History Limited By: other (overdose) Onset: this evening Position: other (global) Quality: other (intentional overdose) Timing: other (episode) Review of Systems Review of systems limited secondary to overdose. Past Medical & Surgical Medical Problems: (1) Alcohol withdrawal (2) Cocaine abuse (3) Depression (4) Marijuana abuse in remission Family History Cancer Diabetes mellitus Heart disease Hypertension Social History Smoking Status: Former Smoker Alcohol Use: occasionally Drug Use: marijuana Marital Status: single Housing Status: lives with family Occupation Status: employed Current/Historical Medications Scheduled Amlodipine Besylate (Amlodipine Besylate), 10 MG PO HS Bupropion HCl (Bupropion HCl Sr), 150 MG PO BID Chlordiazepoxide (Chlordiazepoxide HCl), 25 MG PO UD Clonidine HCl (Clonidine HCl), 0.1 MG PO BID Melatonin (Melatonin), 5 MG PO HS Omeprazole (Ra Omeprazole), 20 MG PO DAILY Sertraline HCl (Sertraline HCl), 100 MG PO DAILY Scheduled PRN Ibuprofen Tab (Motrin), 800 MG PO UD PRN for Pain Allergies Coded Allergies: No Known Allergies (Verified , 11/18/14) Physical Exam Vital Signs Date Time Temp Pulse Resp B/P Pulse Ox O2 Delivery O2 Flow Rate FiO2 04/01/16 11:15 72 19 120/94 100 04/01/16 11:00 72 19 120/94 100 Room Air 04/01/16 09:00 68 16 107/76 97 Room Air 04/01/16 07:00 66 16 115/76 98 Room Air 04/01/16 06:00 66 16 110/76 96 Room Air 04/01/16 05:00 69 14 102/63 95 Room Air 04/01/16 04:30 76 04/01/16 04:00 70 14 104/72 96 Room Air 04/01/16 03:16 36.8 76 15 107/74 95 Room Air 04/01/16 03:07 95 Room Air Physical Exam GENERAL: Patient is a healthy-appearing well-nourished HEAD: Normocephalic atraumatic EYES: Ocular movements intact pupils equal and react to light OROPHARYNX mucous membranes are moist no exudates present no erythema or edema present NECK: Supple no nuchal rigidity CHEST: Good equal expansion LUNGS: Clear and equal to auscultation CARDIAC: Normal S1 and S2 ABDOMEN: Soft nontender no guarding BACK: No CVA tenderness EXTREMITIES: No pain upon palpation normal muscle strength in all groups no clubbing cyanosis or edema NEURO: Patient is following commands is answering questions appropriately. Alert and oriented x3 Cranial Nerves 2-12 grossly intact Medical Decision & Procedures Laboratory Results 04/01/16 03:58 Red Blood Count 4.62, Mean Corpuscular Volume 87.2, Mean Corpuscular Hemoglobin 30.7, Mean Corpuscular Hemoglobin Concent 35.2, Mean Platelet Volume 10.4, Neutrophils (%) (Auto) 50.8, Lymphocytes (%) (Auto) 37.0, Monocytes (%) (Auto) 8.1, Eosinophils (%) (Auto) 3.5, Basophils (%) (Auto) 0.4, Neutrophils # (Auto) 2.88, Lymphocytes # (Auto) 2.10, Monocytes # (Auto) 0.46, Eosinophils # (Auto) 0.20, Basophils # (Auto) 0.02 04/01/16 03:58 Test 04/01/16 03:00 04/01/16 03:58 Urine Color YELLOW Urine Appearance CLEAR (CLEAR) Urine pH 5.0 (4.5-7.5) Urine Specific [place] 1.002 (1.000-1.030) Urine Protein NEG (NEG) Urine Glucose (UA) NEG (NEG) Urine Ketones NEG (NEG) Urine Occult Blood NEG (NEG) Urine Nitrite NEG (NEG) Urine Bilirubin NEG (NEG) Urine Urobilinogen NEG (NEG) Urine Leukocyte Esterase NEG (NEG) Urine Opiates Screen POS (NEG) Urine Methadone, Qualitative NEG (NEG) Urine Barbiturates NEG (NEG) Ur Amphetamine/Methamphetamine NEG (NEG) MDMA (Ecstasy) Screen POS (NEG) Urine Benzodiazepines Screen POS (NEG) Urine Cocaine Metabolite NEG (NEG) Urine Marijuana (THC) POS (NEG) White Blood Count 5.67 K/uL (4.8-10.8) Red Blood Count 4.62 M/uL (4.7-6.1) Hemoglobin 14.2 g/dL (14.0-18.0) Hematocrit 40.3 % (42-52) Mean Corpuscular Volume 87.2 fL (80-100) Mean Corpuscular Hemoglobin 30.7 pg (25-34) Mean Corpuscular Hemoglobin Concent 35.2 g/dl (32-36) Platelet Count 212 K/uL (130-400) Mean Platelet Volume 10.4 fL (7.4-10.4) Neutrophils (%) (Auto) 50.8 % Lymphocytes (%) (Auto) 37.0 % Monocytes (%) (Auto) 8.1 % Eosinophils (%) (Auto) 3.5 % Basophils (%) (Auto) 0.4 % Neutrophils # (Auto) 2.88 K/uL (1.4-6.5) Lymphocytes # (Auto) 2.10 K/uL (1.2-3.4) Monocytes # (Auto) 0.46 K/uL (0.11-0.59) Eosinophils # (Auto) 0.20 K/uL (0-0.5) Basophils # (Auto) 0.02 K/uL (0-0.2) RDW Standard Deviation 45.1 fL (36.4-46.3) RDW Coefficient of Variation 14.1 % (11.5-14.5) Immature Granulocyte % (Auto) 0.2 % Immature Granulocyte # (Auto) 0.01 K/uL (0.00-0.02) Prothrombin Time 12.1 SECONDS (9.0-12.0) Prothromb Time International Ratio 1.1 (0.9-1.1) Activated Partial Thromboplast Time 30.2 SECONDS (21.0-31.0) Partial Thromboplastin Ratio 1.2 Anion Gap 7.0 mmol/L (3-11) Est Creatinine Clear Calc Drug Dose 94.8 ml/min Estimated GFR () 92.2 Estimated GFR (Non- 79.5 BUN/Creatinine Ratio 8.1 (10-20) Calcium Level 9.1 mg/dl (8.5-10.1) Total Bilirubin 0.3 mg/dl (0.2-1) Direct Bilirubin < 0.1 mg/dl (0-0.2) Aspartate Amino Transf (AST/SGOT) 22 U/L (15-37) Alanine Aminotransferase (ALT/SGPT) 32 U/L (12-78) Alkaline Phosphatase 79 U/L (45-117) Total Creatine Kinase 221 U/L (39-308) Total Protein 6.9 gm/dl (6.4-8.2) Albumin 3.9 gm/dl (3.4-5.0) Lipase 123 U/L (73-393) Salicylates Level < 1.7 mg/dl (2.8-20) Acetaminophen Level < 2 ug/ml (10-30) Ethyl Alcohol mg/dL < 3.0 mg/dl (0-3) Labs reviewed by ED physician. Medications Administered Medications (Trade) Dose Ordered Sig/Cathie Route Start Time Stop Time Status Last Admin Dose Admin Sodium Chloride (Nss 1000ml) 1,000 ml @ 999 mls/hr Q1H1M STAT IV 04/01/16 02:41 04/01/16 03:41 DC 04/01/16 04:15 999 MLS/HR ECG Indication: other (overdose) Rate (beats per minute): 76 Rhythm: normal sinus Findings: no acute ischemic change, no ectopy ED Course 0241: Ordered 1,000 ml @ 999 mls/hr IV. 0256: Past medical records reviewed. The patient was evaluated in room A3. A complete history and physical examination was performed. 0555: Upon reexamination the patient is hemodynamically stable. I discussed results and treatment plan with the patient. He verbalizes agreement and understanding. The patient is ready for discharge. Medical Decision Differential diagnosis: Etiologies such as toxicologic, infection, hypoglycemia, electrolyte abnormalities, cardiac sources, intracerebral event, neurologic, as well as others were entertained. This is a 30-year-old male who presents emergency department after being sent out of his house by his father. The patient's fall are no longer wishes to care for the patient. He believes that the patient overdosed on Robitussin. Upon arrival to the emergency department the patient has no complaints. His Tylenol level is normal as well as his aspirin level. I believe that the patient is safe enough to be discharged. I did discuss the case with case management who is going to try get the patient into a fci. Patient was in agreement with this treatment plan. Impression Primary Impression: Overdose Scribe Attestation The scribe's documentation has been prepared under my direction and personally reviewed by me in its entirety. I confirm that the note above accurately reflects all work, treatment, procedures, and medical decision making performed by me. Departure Information Dispostion Home / Self-Care Referrals Anshu Inman D.O.Int.Med. (PCP) Patient Instructions My [facility] Additional Instructions Follow up with DR Inman's office You have been examined and treated today on an emergency basis only. This is not a substitute for, or an effort to provide, complete comprehensive medical care. It is impossible to recognize and treat all injuries or illnesses in a single emergency department visit. It is therefore important that you follow up closely with Dr Inman. Call as soon as possible for an appointment. Thank you for your time and consideration. I look forward to speaking with you again soon. Please don't hesitate to call us if you have any questions. Problem Qualifiers Primary Impression: Overdose Encounter type: initial encounter Injury intent: undetermined intent Qualified Codes: T50.904A - Poisoning by unspecified drugs, medicaments and biological substances, undetermined, initial encounter
[2016-04-01 04:25] LABS: INR 1.1 (0.9-1.1); PARTIAL THROMBOPLASTIN RATIO 1.2; PROTHROMBIN TIME (PATIENT) 12.1 SECONDS (9.0-12.0)
[2016-04-01 04:41] LABS: ALT/SGPT 32 U/L (12-78); AST/SGOT 22 U/L (15-37); BLOOD UREA NITROGEN 10 mg/dl (7-18); BUN/CREATININE RATIO 8.1 (10-20); CALCIUM 9.1 mg/dl (8.5-10.1); CARBON DIOXIDE 26 mmol/L (21-32); CHLORIDE 107 mmol/L (98-107); GLUCOSE 85 mg/dl (70-99); POTASSIUM 3.7 mmol/L (3.5-5.1); SODIUM 140 mmol/L (136-145)
[2016-04-01 04:43] LABS: ALKALINE PHOSPHATASE 79 U/L (45-117)
[2016-04-01 04:48] LABS: ACETAMINOPHEN < 2 ug/ml (10-30)
[2016-04-01 10:09] LABS: BENZODIAZEPINE, URINE POS (NEG); COCAINE,URINE NEG (NEG); PHENCYCLIDINE, URINE POS (NEG)
[2016-04-01 11:15] VITALS: BP 120/94; PULSE 72; O2SAT 100
--- NOTE | 2016-04-01 15:42 | EMERGENCY ROOM VISIT NOTE ---
ED Visit Note First contact with patient: 10:05 30 yr old male brought in overnight for polysubstance abuse and evaluated and medically cleared by Dr Quiñones. Planned discharge this morning. I evaluated patient this morning and now awake, alert, oriented. Denies any current symptoms. States he was just getting high by drinking robutussin along with other recent drug use. Denies any thoughts of harm to self nor others. Denies he is suicidal nor that this was a suicide attempt. Admits he does this periodically to get high. He denies any homicidal ideation. He denies any need for CAN help evaluation nor inpatient psychiatric treatment. He is not interested in rehab. He wants to be discharged. Case management in to discuss with patient outpatient resources.
[2016-04-05 15:07] LABS: COD UR NEGATIVE NG/ML (CUTOFF=50); HYDROCOD UR NEGATIVE NG/ML (CUTOFF=50); HYDROMOR UR NEGATIVE NG/ML (CUTOFF=50); HYDROXYETHYLFLURAZEPAM CONF NEGATIVE NG/ML (CUTOFF=50); HYDROXYMIDAZOLAM NEGATIVE NG/ML (CUTOFF=50); HYDROXYTRIAZOLAM CONF NEGATIVE NG/ML (CUTOFF=50); MORPHINE UR NEGATIVE NG/ML (CUTOFF=50); NORHYDROCODONE CONF UR NEGATIVE NG/ML (CUTOFF=50); OXYMORPH UR NEGATIVE NG/ML (CUTOFF=50); PHENCYCLIDINE GC/MS NEGATIVE NG/ML (CUTOFF=25); TEMAZEPAM CONF NEGATIVE NG/ML (CUTOFF=50)
== END 2016-04-01 11:16 | disposition home or self-care (01) ==
LOC: EDBD 02:34 → C.EDA 02:35
DX: T50.904A Poisoning by unspecified drugs, medicaments and biological substances, undetermined, initial encounter (principal); F32.9 Major depressive disorder, single episode, unspecified; Z83.3 Family history of diabetes mellitus; Z82.49 Family history of ischemic heart disease and other diseases of the circulatory system; F12.10 Cannabis abuse, uncomplicated; Z79.899 Other long term (current) drug therapy

== ENCOUNTER 2016-04-03 17:54 | Emergency (ER) | payer OTHER ==
[~2016-04-03] VITALS: Ht 172.7 cm; Wt 86.5 kg
[2016-04-03 18:10] VITALS: Ht 172.7 cm; Wt 86.5 kg
[2016-04-03] MEDS ORDERED: LORAZEPAM 1 MG TAB SL STA (18:10)
--- NOTE | 2016-04-03 18:28 | EMERGENCY ROOM VISIT NOTE ---
History Report prepared by Jean: Sherice Hall Under the Supervision of: Dr. Scott Goldman D.O. First contact with patient: 18:04 Chief Complaint: MENTAL HEALTH EVALUATION Stated Complaint: MHMR History of Present Illness The patient is a 30 year old male who presents to the Emergency Room for mental health evaluation. The patient states that he has been struggling with depression and addiction and needs help. He is currently homeless as his family does not want him staying at their house nor does he feel safe staying there. Today he went by his parent's house to let them know he was doing okay and his mother called [facility]. [facility] told him that he needed to come to the ED to get treatment. The patient states that he has been staying on [facility] and last night slept in the HUB. The patient was seen in the ED on Sunday for a mental breakdown he experienced. He recently has been abusing Robitussin gel capsules to numb himself from the daily struggles and pain from life. He notes that he is note proud of this action. The patient has reportedly acted crazy and out of character threatening to kill his parents when he is abusing Robitussin. He notes that he has no memory of these actions. The patient denies wanting to hurt himself and states that he does not want to kill himself however he is hoping an outside object such as a bus hitting him will kill him. He states that he does not want to live. The patient notes that previous suicide attempts was a cry for help to get hospitalized. His last inpatient treatment was July 2015. He denies taking his medication recently since it is at his parent's house and he does not live there for the past few days. The patient also denies drug or alcohol use today. Source of History: patient Onset: today Position: other (global) Quality: other (mental health evaluation) Timing: constant Note: Patient has been experiencing depression, drug addiction and wanting to not live. Review of Systems See HPI for pertinent positives & negatives. A total of 10 systems reviewed and were otherwise negative. Past Medical & Surgical Medical Problems: (1) Alcohol withdrawal (2) Cocaine abuse (3) Depression (4) Marijuana abuse in remission Family History Cancer Diabetes mellitus Heart disease Hypertension Social History Smoking Status: Former Smoker Alcohol Use: occasionally Drug Use: marijuana Marital Status: single Housing Status: lives with family Occupation Status: unemployed Current/Historical Medications Scheduled Amlodipine Besylate (Amlodipine Besylate), 10 MG PO HS Bupropion HCl (Bupropion HCl Sr), 150 MG PO BID Chlordiazepoxide (Chlordiazepoxide HCl), 25 MG PO UD Clonidine HCl (Clonidine HCl), 0.1 MG PO BID Hydroxyzine Pamoate (Vistaril), 50 MG PO DAILY Melatonin (Melatonin), 5 MG PO HS Omeprazole (Ra Omeprazole), 20 MG PO DAILY Propranolol Hcl (Propranolol Hcl), 80 MG PO BID Sertraline HCl (Sertraline HCl), 100 MG PO DAILY Scheduled PRN Ibuprofen Tab (Motrin), 800 MG PO UD PRN for Pain Allergies Coded Allergies: No Known Allergies (Verified , 04/03/16) Physical Exam Vital Signs Date Time Temp Pulse Resp B/P Pulse Ox O2 Delivery O2 Flow Rate FiO2 04/03/16 21:49 70 20 124/70 97 Room Air 04/03/16 19:53 72 20 118/80 95 Room Air 04/03/16 18:10 36.7 80 18 146/88 98 Room Air Physical Exam GENERAL: Patient is awake, alert, somewhat anxious appearing, in no pain or uncomfortable appearing. EYES: The conjunctivae are clear. The pupils are round and reactive. EARS, NOSE, MOUTH AND THROAT: The nose is without any evidence of any deformity. Mucous membranes are moist tongue is midline NECK: The neck is nontender and supple. RESPIRATORY: Normal respiratory effort is noted there is no evidence of wheezing rhonchi or rales CARDIOVASCULAR: Regular rate and rhythm noted there no murmurs rubs or gallops normal S1 normal S2 GASTROINTESTINAL: The abdomen is soft. Bowel sounds are present in all quadrants. Abdomen is nontender MUSCULOSKELETAL/EXTREMITIES: There is no evidence of gross deformity full range of motion is noted in the hips and shoulders SKIN: There is no obvious evidence of any rash. There are no petechiae, pallor or cyanosis noted. NEUROLOGIC: Patient is awake alert and oriented x3 strength is symmetric patellar reflexes are 2+ bilaterally PSYCH: Patient makes poor eye contact and has flat affect. He currently denies active suicidal ideation however admits to past suicidal ideations. Medical Decision & Procedures Laboratory Results 04/03/16 19:32 Red Blood Count 5.01, Mean Corpuscular Volume 87.6, Mean Corpuscular Hemoglobin 30.7, Mean Corpuscular Hemoglobin Concent 35.1, Mean Platelet Volume 10.4, Neutrophils (%) (Auto) 65.9, Lymphocytes (%) (Auto) 22.6, Monocytes (%) (Auto) 9.0, Eosinophils (%) (Auto) 1.9, Basophils (%) (Auto) 0.3, Neutrophils # (Auto) 4.93, Lymphocytes # (Auto) 1.69, Monocytes # (Auto) 0.67, Eosinophils # (Auto) 0.14, Basophils # (Auto) 0.02 04/03/16 19:32 Test 04/03/16 18:26 04/03/16 19:32 Urine Color YELLOW Urine Appearance CLEAR (CLEAR) Urine pH 6.0 (4.5-7.5) Urine Specific [place] 1.016 (1.000-1.030) Urine Protein NEG (NEG) Urine Glucose (UA) NEG (NEG) Urine Ketones TRACE (NEG) Urine Occult Blood NEG (NEG) Urine Nitrite NEG (NEG) Urine Bilirubin NEG (NEG) Urine Urobilinogen NEG (NEG) Urine Leukocyte Esterase NEG (NEG) Urine Opiates Screen POS (NEG) Urine Methadone, Qualitative NEG (NEG) Urine Barbiturates NEG (NEG) Urine Phencyclidine (PCP) Level NEG (NEG) Ur Amphetamine/Methamphetamine NEG (NEG) MDMA (Ecstasy) Screen POS (NEG) Urine Benzodiazepines Screen POS (NEG) Urine Cocaine Metabolite NEG (NEG) Urine Marijuana (THC) POS (NEG) White Blood Count 7.47 K/uL (4.8-10.8) Red Blood Count 5.01 M/uL (4.7-6.1) Hemoglobin 15.4 g/dL (14.0-18.0) Hematocrit 43.9 % (42-52) Mean Corpuscular Volume 87.6 fL (80-100) Mean Corpuscular Hemoglobin 30.7 pg (25-34) Mean Corpuscular Hemoglobin Concent 35.1 g/dl (32-36) Platelet Count 252 K/uL (130-400) Mean Platelet Volume 10.4 fL (7.4-10.4) Neutrophils (%) (Auto) 65.9 % Lymphocytes (%) (Auto) 22.6 % Monocytes (%) (Auto) 9.0 % Eosinophils (%) (Auto) 1.9 % Basophils (%) (Auto) 0.3 % Neutrophils # (Auto) 4.93 K/uL (1.4-6.5) Lymphocytes # (Auto) 1.69 K/uL (1.2-3.4) Monocytes # (Auto) 0.67 K/uL (0.11-0.59) Eosinophils # (Auto) 0.14 K/uL (0-0.5) Basophils # (Auto) 0.02 K/uL (0-0.2) RDW Standard Deviation 45.7 fL (36.4-46.3) RDW Coefficient of Variation 14.2 % (11.5-14.5) Immature Granulocyte % (Auto) 0.3 % Immature Granulocyte # (Auto) 0.02 K/uL (0.00-0.02) Anion Gap 12.0 mmol/L (3-11) Est Creatinine Clear Calc Drug Dose 94.5 ml/min Estimated GFR () 92.2 Estimated GFR (Non- 79.5 BUN/Creatinine Ratio 10.3 (10-20) Calcium Level 9.4 mg/dl (8.5-10.1) Total Bilirubin 0.3 mg/dl (0.2-1) Direct Bilirubin < 0.1 mg/dl (0-0.2) Aspartate Amino Transf (AST/SGOT) 24 U/L (15-37) Alanine Aminotransferase (ALT/SGPT) 31 U/L (12-78) Alkaline Phosphatase 90 U/L (45-117) Total Protein 7.2 gm/dl (6.4-8.2) Albumin 3.7 gm/dl (3.4-5.0) Globulin 3.5 gm/dl (2.5-4.0) Albumin/Globulin Ratio 1.1 (0.9-2) Thyroid Stimulating Hormone (TSH) 1.030 uIu/ml (0.300-4.500) Ethyl Alcohol mg/dL < 3.0 mg/dl (0-3) Laboratory results per my review. Medications Administered Medications (Trade) Dose Ordered Sig/Cathie Route Start Time Stop Time Status Last Admin Dose Admin Lorazepam (Ativan Tab) 1 mg NOW STAT SL 04/03/16 18:10 04/03/16 18:11 DC 04/03/16 18:32 1 MG ED Course 180: The patient was evaluated in room A7. A complete history and physical examination were performed. 1809: Ativan Tab 1 mg SL. 1999: A referral is being made for the patient to receive inpatient care. 233: The patient will be transferred to the [facility] tomorrow at 9am. 0230: The patient is still a patient and will be signed out. Medical Decision Differential diagnosis: Etiologies such as mood disorder, infection, hypoglycemia, electrolyte abnormalities, cardiac sources, intracerebral event, toxicologic, neurologic, as well as others were entertained. Nursing notes reviewed. The patient's previous electronic medical records reviewed. The patient is a 30-year-old male who presented to the emergency department for an evaluation and possible mental health admission. The patient has been having problems recently at home. He has been living on campus at different facilities that are open 24 hours. When he abuses [id number] medications for cold and cough he starts to become very belligerent and aggressive towards his family members. This evening his family members called the crisis workers he was evaluated. He had very significant problems at home. He presents to the emergency department this evening for voluntary evaluation for possible inpatient psychiatric care. The patient is currently not tonically intoxicated. He was medically cleared in the emergency department. He was treated with Ativan in the emergency department. On subsequent reevaluation he was feeling much better. He was evaluated by the emergency Department mental health immigration case worker. He was felt to be a good candidate for inpatient management after she interviewed the [facility] delegate. The patient was accepted at the [facility] and is to be taken to their facility at 9 o'clock this morning. The patient was signed out to the manufacturing supervisor 2nd shift ER physician pending transfer to inpatient psychiatric care. Impression Primary Impression: Depression Additional Impressions: Suicidal ideation Recreational drug use Scribe Attestation The scribe's documentation has been prepared under my direction and personally reviewed by me in its entirety. I confirm that the note above accurately reflects all work, treatment, procedures, and medical decision making performed by me. Departure Information Dispostion Still a Patient Referrals Anshu Inman D.O.Int.Med. (PCP) Problem Qualifiers
[2016-04-03 18:47] LABS: URINE APPEARANCE CLEAR (CLEAR); URINE BILIRUBIN NEG (NEG); URINE COLOR YELLOW; URINE NITRITE NEG (NEG); URINE SPECIFIC GRAVITY 1.016 (1.000-1.030); UROBILINOGEN NEG (NEG)
[2016-04-03 18:59] LABS: MANUAL MICROSCOPIC REQUIRED? NO; REVIEW REQ? NO
[2016-04-03] MEDS ORDERED: HYDR50CA2 PO (19:07)
[2016-04-03] MEDS ORDERED: PROP40TA5 PO (19:07)
[2016-04-03 19:34] LABS: BENZODIAZEPINE, URINE POS (NEG); COCAINE,URINE NEG (NEG); PHENCYCLIDINE, URINE NEG (NEG)
[2016-04-03 19:49] LABS: BASO % 0.3 %; BASO ABS # 0.02 K/uL (0-0.2); COMPLETE YES; EOS % 1.9 %; HEMATOCRIT 43.9 % (42-52); IG% 0.3 %; LYMPH % 22.6 %; LYMPH ABS # 1.69 K/uL (1.2-3.4); MEAN CELL VOLUME 87.6 fL (80-100); MEAN CORPUSCULAR HEMOGLOBIN 30.7 pg (25-34); MEAN CORPUSCULAR HGB CONC 35.1 g/dl (32-36); MEAN PLATELET VOLUME 10.4 fL (7.4-10.4); NEUT % 65.9 %; PLATELET COUNT 252 K/uL (130-400); RED BLOOD COUNT 5.01 M/uL (4.7-6.1); WHITE BLOOD COUNT 7.47 K/uL (4.8-10.8)
[2016-04-03 20:06] LABS: ALT/SGPT 31 U/L (12-78); BLOOD UREA NITROGEN 12 mg/dl (7-18); BUN/CREATININE RATIO 10.3 (10-20); CALCIUM 9.4 mg/dl (8.5-10.1); CARBON DIOXIDE 24 mmol/L (21-32); CHLORIDE 104 mmol/L (98-107); GLUCOSE 84 mg/dl (70-99); POTASSIUM 3.5 mmol/L (3.5-5.1); SODIUM 140 mmol/L (136-145)
[2016-04-03 20:17] LABS: ALB/GLOB RATIO 1.1 (0.9-2); ALKALINE PHOSPHATASE 90 U/L (45-117); AST/SGOT 24 U/L (15-37)
[2016-04-04 09:35] VITALS: BP 127/95; PULSE 87; TEMP 36.8; O2SAT 96
[2016-04-04] MEDS ORDERED: CLONIDINE HCL 0.1 MG TAB PO ONE (10:00)
[2016-04-04] MEDS ORDERED: SERTRALINE HCL 100 MG TAB PO SCH (10:00)
[2016-04-04] MEDS ORDERED: PROPRANOLOL HCL 80 MG TAB PO SCH (10:00)
[2016-04-06 16:33] LABS: COD UR NEGATIVE NG/ML (CUTOFF=50); HYDROCOD UR NEGATIVE NG/ML (CUTOFF=50); HYDROMOR UR NEGATIVE NG/ML (CUTOFF=50); HYDROXYETHYLFLURAZEPAM CONF NEGATIVE NG/ML (CUTOFF=50); HYDROXYMIDAZOLAM NEGATIVE NG/ML (CUTOFF=50); HYDROXYTRIAZOLAM CONF NEGATIVE NG/ML (CUTOFF=50); MORPHINE UR NEGATIVE NG/ML (CUTOFF=50); NORHYDROCODONE CONF UR NEGATIVE NG/ML (CUTOFF=50); OXYMORPH UR NEGATIVE NG/ML (CUTOFF=50); TEMAZEPAM CONF NEGATIVE NG/ML (CUTOFF=50)
== END 2016-04-04 09:35 ==
LOC: C.EDB 17:54 → C.EDA 04-04 09:35
DX: F32.9 Major depressive disorder, single episode, unspecified (principal); R45.851 Suicidal ideations; F19.10 Other psychoactive substance abuse, uncomplicated; Z83.3 Family history of diabetes mellitus; Z82.49 Family history of ischemic heart disease and other diseases of the circulatory system; Z87.891 Personal history of nicotine dependence; F12.10 Cannabis abuse, uncomplicated; Z79.899 Other long term (current) drug therapy

== ENCOUNTER 2016-05-24 20:05 | Emergency (ER) | payer OTHER ==
[~2016-05-24] VITALS: Ht 172.7 cm; Wt 79.1 kg
[~2016-05-24 20:05] MED LIST changes: +HYDR50CA2 PO; +PROP40TA5 PO
[2016-05-24] MEDS ORDERED: SODIUM CHLORIDE 0.9% 1000ML 1,000 ML IV STA (20:17)
[2016-05-24] MEDS ORDERED: SODIUM CHLORIDE 0.9% 1000ML 2,000 ML IV STA (20:17)
--- NOTE | 2016-05-24 20:34 | DIAGNOSTIC IMAGING REPORT ---
CHEST ONE VIEW PORTABLE HISTORY: Overdose COMPARISON: Chest 03/24/2016. FINDINGS: The lungs are clear. Cardiac silhouette is normal in size. No pleural effusions. No pneumothorax. IMPRESSION: No acute process. Electronically signed by: King Canada M.D. 05/24/2016 8:32 PM Dictated Date/Time: 05/24/2016 8:31 PM
[2016-05-24 20:53] VITALS: TEMP 36.5; O2SAT 97; Ht 172.7 cm; Wt 79.1 kg
[2016-05-24 20:55] LABS: BASO % 0.1 %; BASO ABS # 0.02 K/uL (0-0.2); COMPLETE YES; EOS % 0.1 %; HEMATOCRIT 41.6 % (42-52); IG% 0.3 %; LYMPH % 6.4 %; LYMPH ABS # 0.86 K/uL (1.2-3.4); MEAN CELL VOLUME 85.8 fL (80-100); MEAN CORPUSCULAR HEMOGLOBIN 29.5 pg (25-34); MEAN CORPUSCULAR HGB CONC 34.4 g/dl (32-36); MEAN PLATELET VOLUME 10.4 fL (7.4-10.4); MONO % 5.5 %; NEUT % 87.6 %; PLATELET COUNT 275 K/uL (130-400); RED BLOOD COUNT 4.85 M/uL (4.7-6.1); WHITE BLOOD COUNT 13.35 K/uL (4.8-10.8)
[2016-05-24] MEDS ORDERED: MRP25 PO (20:56)
[2016-05-24 21:10] LABS: INR 1.1 (0.9-1.1); PROTHROMBIN TIME (PATIENT) 11.7 SECONDS (9.0-12.0)
[2016-05-24 21:16] LABS: ACETAMINOPHEN < 2 ug/ml (10-30); ALT/SGPT 27 U/L (12-78); BLOOD UREA NITROGEN 10 mg/dl (7-18); BUN/CREATININE RATIO 8.2 (10-20); CALCIUM 8.5 mg/dl (8.5-10.1); CARBON DIOXIDE 26 mmol/L (21-32); CHLORIDE 111 mmol/L (98-107); GLUCOSE 68 mg/dl (70-99); POTASSIUM 3.4 mmol/L (3.5-5.1); SODIUM 146 mmol/L (136-145)
[2016-05-24 21:21] LABS: ALKALINE PHOSPHATASE 83 U/L (45-117); AST/SGOT 20 U/L (15-37); CKMB/CK RATIO 0.9 (0-3.0)
[2016-05-24] MEDS ORDERED: WLLSR150 PO (23:00)
[2016-05-25 00:13] LABS: URINE APPEARANCE CLEAR (CLEAR); URINE BILIRUBIN NEG (NEG); URINE COLOR YELLOW; URINE NITRITE NEG (NEG); URINE SPECIFIC GRAVITY 1.011 (1.000-1.030); UROBILINOGEN NEG (NEG)
[2016-05-25 00:15] LABS: MANUAL MICROSCOPIC REQUIRED? NO; REVIEW REQ? YES
[2016-05-25 00:47] LABS: BENZODIAZEPINE, URINE NEG (NEG); COCAINE,URINE NEG (NEG); PHENCYCLIDINE, URINE POS (NEG)
--- NOTE | 2016-05-25 01:42 | EMERGENCY ROOM VISIT NOTE ---
History Report prepared by Jean: Xavier Serra Under the Supervision of: Dr. Haroldo Mccarthy M.D. First contact with patient: 20:08 Chief Complaint: OVERDOSE (INTENTIONAL) Stated Complaint: OVERDOSE History of Present Illness The patient is a 30 year old male who presents to the Emergency Room with complaints of a sudden overdose occurring a couple of hours prior to arrival. The patient states that he took a whole bottle of cough syrup gel caps. The patient denies taking any Tylenol, aspirin, alcohol, or other drugs. The patient states that he has done this before years ago in college. The patient states that he took them for complicated reasons. Pt denies LOC, headache, fevers, chills, visual changes, neck pain, chest pain, breathing difficulties, nausea, vomiting, abdominal pain, back pain, melena, hematochezia, urinary symptoms, numbness, weakness, lymphadenopathy, rash, or other complaints. Source of History: patient Onset: a few hours prior to arrival Position: other (global) Quality: other (overdose) Timing: other (sudden) Review of Systems See HPI for pertinent positives and negatives. A total of ten systems were reviewed and were otherwise negative. Past Medical & Surgical Medical Problems: (1) Alcohol withdrawal (2) Cocaine abuse (3) Depression (4) Marijuana abuse in remission Family History Cancer Diabetes mellitus Heart disease Hypertension Social History Smoking Status: Former Smoker Alcohol Use: occasionally Drug Use: marijuana Marital Status: single Housing Status: lives with family Occupation Status: unemployed Current/Historical Medications Scheduled Bupropion HCl (Bupropion HCl Sr), 150 MG PO BID Pramipexole Dihydrochloride (Pramipexole Dihydrochlori), 0.25 MG PO HS Allergies Coded Allergies: No Known Allergies (Verified , 04/03/16) Physical Exam Vital Signs Date Time Temp Pulse Resp B/P Pulse Ox O2 Delivery O2 Flow Rate FiO2 05/25/16 00:05 103 97 05/25/16 00:01 179/125 05/24/16 23:35 96 97 05/24/16 23:31 176/111 05/24/16 23:05 114 97 05/24/16 23:03 161/106 05/24/16 22:35 109 19 100 05/24/16 22:31 184/134 05/24/16 22:05 112 98 05/24/16 22:01 171/116 3/15/17 21:35 98 22 98 05/24/16 21:31 173/110 05/24/16 21:05 105 27 98 05/24/16 21:01 187/108 05/24/16 20:53 36.5 117 20 157/119 98 Room Air 05/24/16 20:53 97 Room Air 05/24/16 20:53 170/121 05/24/16 20:36 111 Physical Exam GENERAL: Intoxicated, awake, well appearing, no distress. Speech is slurred. HENT: Normocephalic, atraumatic. Oropharynx unremarkable. EYES: PERRL. Erythematous conjunctiva. Sclera non-icteric. NECK: Supple. No nuchal rigidity. FROM. RESPIRATORY: CTA CARDIAC: RRR GI/ABDOMEN: Soft, non distended. No tenderness to palpation. No rebound or guarding. No masses. RECTAL: Deferred. MUSCULOSKELETAL: No edema. No discoloration. Gross motor strength 5/5 bilaterally. NEURO: Altered sensorium. No sensory or motor deficits noted. Speech slurred. SKIN: Diaphoretic. No rash or jaundice noted. LYMPH: No adenopathy. Medical Decision & Procedures ER Provider Diagnostic Interpretation: X-ray: Per my interpretation, radiologist review. CHEST ONE VIEW PORTABLE HISTORY: Overdose COMPARISON: Chest 03/24/2016. FINDINGS: The lungs are clear. Cardiac silhouette is normal in size. No pleural effusions. No pneumothorax. IMPRESSION: No acute process. Electronically signed by: King Canada M.D. 05/24/2016 8:32 PM Dictated Date/Time: 05/24/2016 8:31 PM Laboratory Results 05/24/16 20:44 Red Blood Count 4.85, Mean Corpuscular Volume 85.8, Mean Corpuscular Hemoglobin 29.5, Mean Corpuscular Hemoglobin Concent 34.4, Mean Platelet Volume 10.4, Neutrophils (%) (Auto) 87.6, Lymphocytes (%) (Auto) 6.4, Monocytes (%) (Auto) 5.5, Eosinophils (%) (Auto) 0.1, Basophils (%) (Auto) 0.1, Neutrophils # (Auto) 11.67, Lymphocytes # (Auto) 0.86, Monocytes # (Auto) 0.74, Eosinophils # (Auto) 0.02, Basophils # (Auto) 0.02 05/24/16 20:44 Test 05/24/16 20:44 05/24/16 23:55 05/25/16 00:04 White Blood Count 13.35 K/uL (4.8-10.8) Red Blood Count 4.85 M/uL (4.7-6.1) Hemoglobin 14.3 g/dL (14.0-18.0) Hematocrit 41.6 % (42-52) Mean Corpuscular Volume 85.8 fL (80-100) Mean Corpuscular Hemoglobin 29.5 pg (25-34) Mean Corpuscular Hemoglobin Concent 34.4 g/dl (32-36) Platelet Count 275 K/uL (130-400) Mean Platelet Volume 10.4 fL (7.4-10.4) Neutrophils (%) (Auto) 87.6 % Lymphocytes (%) (Auto) 6.4 % Monocytes (%) (Auto) 5.5 % Eosinophils (%) (Auto) 0.1 % Basophils (%) (Auto) 0.1 % Neutrophils # (Auto) 11.67 K/uL (1.4-6.5) Lymphocytes # (Auto) 0.86 K/uL (1.2-3.4) Monocytes # (Auto) 0.74 K/uL (0.11-0.59) Eosinophils # (Auto) 0.02 K/uL (0-0.5) Basophils # (Auto) 0.02 K/uL (0-0.2) RDW Standard Deviation 43.8 fL (36.4-46.3) RDW Coefficient of Variation 13.9 % (11.5-14.5) Immature Granulocyte % (Auto) 0.3 % Immature Granulocyte # (Auto) 0.04 K/uL (0.00-0.02) Prothrombin Time 11.7 SECONDS (9.0-12.0) Prothromb Time International Ratio 1.1 (0.9-1.1) Activated Partial Thromboplast Time 25.0 SECONDS (21.0-31.0) Partial Thromboplastin Ratio 1.0 Anion Gap 9.0 mmol/L (3-11) Est Creatinine Clear Calc Drug Dose 85.5 ml/min Estimated GFR () 92.2 Estimated GFR (Non- 79.5 BUN/Creatinine Ratio 8.2 (10-20) Osmolality 295 mOsm/kg (280-300) Calcium Level 8.5 mg/dl (8.5-10.1) Total Bilirubin 0.3 mg/dl (0.2-1) Direct Bilirubin < 0.1 mg/dl (0-0.2) Aspartate Amino Transf (AST/SGOT) 20 U/L (15-37) Alanine Aminotransferase (ALT/SGPT) 27 U/L (12-78) Alkaline Phosphatase 83 U/L (45-117) Total Creatine Kinase 228 U/L (39-308) Creatine Kinase MB 2.0 ng/ml (0.5-3.6) Creatine Kinase MB Ratio 0.9 (0-3.0) Troponin I < 0.015 ng/ml (0-0.045) Total Protein 7.2 gm/dl (6.4-8.2) Albumin 3.8 gm/dl (3.4-5.0) Lipase 760 U/L (73-393) Salicylates Level 2.0 mg/dl (2.8-20) Acetaminophen Level < 2 ug/ml (10-30) Ethyl Alcohol mg/dL < 3.0 mg/dl (0-3) Urine Color YELLOW Urine Appearance CLEAR (CLEAR) Urine pH 7.0 (4.5-7.5) Urine Specific [place] 1.011 (1.000-1.030) Urine Protein NEG (NEG) Urine Glucose (UA) NEG (NEG) Urine Ketones TRACE (NEG) Urine Occult Blood NEG (NEG) Urine Nitrite NEG (NEG) Urine Bilirubin NEG (NEG) Urine Urobilinogen NEG (NEG) Urine Leukocyte Esterase TRACE (NEG) Urine WBC (Auto) 1-5 /hpf (0-5) Urine RBC (Auto) 5-10 /hpf (0-4) Urine Hyaline Casts (Auto) 1-5 /lpf (0-5) Urine Epithelial Cells (Auto) 10-20 /lpf (0-5) Urine Bacteria (Auto) NEG (NEG) Urine Crystals CALCIUM OXALATE (NONE Urine Opiates Screen NEG (NEG) Urine Methadone, Qualitative NEG (NEG) Urine Barbiturates NEG (NEG) Ur Amphetamine/Methamphetamine NEG (NEG) MDMA (Ecstasy) Screen POS (NEG) Urine Benzodiazepines Screen NEG (NEG) Urine Cocaine Metabolite NEG (NEG) Urine Marijuana (THC) POS (NEG) Bedside Glucose 90 mg/dl (70-99) Laboratory results reviewed by me Medications Administered Medications (Trade) Dose Ordered Sig/Cathie Route Start Time Stop Time Status Last Admin Dose Admin Sodium Chloride 2,000 ml @ 999 mls/hr Q2H1M STAT IV 05/24/16 20:17 05/24/16 22:17 DC 05/24/16 20:17 999 MLS/HR Sodium Chloride (Nss 1000ml) 1,000 ml @ 200 mls/hr Q5H STAT IV 05/24/16 20:17 05/25/16 01:16 DC 05/24/16 20:17 200 MLS/HR ECG Indication: other (overdose) Rate (beats per minute): 94 Rhythm: normal sinus Findings: no acute ischemic change, no ectopy ED Course 2007: The patient was evaluated in room B12. A complete history and physical exam was performed. 2017: Sodium Chloride 1000 ml @ 200 mls/hr IV, Sodium Chloride 2000 ml @ 999 mls /hr IV 2100: Is reassessed. He still has signs of intoxication although it is somewhat improved. Less diaphoretic. Patient is having difficulty urinating. 2345: Patient has incremental improvement although still having some signs of intoxication. Unable to produce a urine sample. Has had problems with urinary retention with drug ingestion in the past. Patient will undergo catheterization for urine sample and relief of his retention. Bedside glucose measurement was performed and was normal at 90. 0030: Case signed out to Dr. Bryant at the change of shift. Medical Decision Prior records/ancillary studies reviewed. The patient had a similar issue and March of this year. Triage Nursing notes reviewed and agree them. The patient's history was concerning for altered mental status and probable overdose. Differential diagnosis: Etiologies such as toxicologic, infection, hypoglycemia, electrolyte abnormalities, cardiac sources, intracerebral event, neurologic, as well as others were entertained. Physical examination: The patient had altered sensorium. No trauma noted. ER treatment provided: IV NSS 2 L bolus IV hydration NSS 200 mL/hr On reassessment the patient was gradually improving. Diagnostic interpretation by me: The electrocardiogram was negative for pathologic change. There was no QRS widening or interval prolongation. The labs revealed A slight leukocytosis. Mild anemia noted as well. Urinalysis was unremarkable. Chemistry panel, LFTs and lipase were unremarkable except for a mild elevation of his lipase. The patient's troponin , Tylenol, salicylate, and alcohol levels were negative. Imaging studies: Chest x-ray as above The patient has an intentional overdose. He hasn't intoxicated sensorium. This is gradually clearing although the patient will need additional time. There is a 302 petition and statements sent with the patient due to some threatening behavior. Even his intoxication at the time further evaluation and management will be necessary once his intoxication clears. His case was signed out to Dr. Bryant at the change of shift. The chart was completed utilizing [employer] Speech voice recognition software. Grammatical errors, random word insertions, pronoun errors, and incomplete sentences are an occasional consequence of this system due to software limitations, ambient noise, and hardware issues. Any formal questions or concerns about the content, text, or information contained within the body of this dictation should be directly addressed to the physician for clarification. Impression Primary Impression: Drug overdose, intentional Scribe Attestation The scribe's documentation has been prepared under my direction and personally reviewed by me in its entirety. I confirm that the note above accurately reflects all work, treatment, procedures, and medical decision making performed by me. Departure Information Dispostion Still a Patient Referrals Anshu Inman D.O.Int.Med. (PCP) Patient Instructions My [facility]
--- NOTE | 2016-05-25 03:00 | EMERGENCY ROOM VISIT NOTE ---
ED Visit Note First contact with patient: 01:52 Patient turned over to me at 1 AM, patient is alert and oriented in no distress at 2:55 AM. Patient is not homicidal or suicidal. He has been seen by the crisis counselors he is cleared for discharge. I have personally examined this patient and he states no suicidal or homicidal ideation. Disposition is discharged home Diagnosis is intentional drug overdose Discharged stable Problem List Medical Problems: (1) Cocaine abuse Status: Resolved (2) Depression Status: Chronic (3) Marijuana abuse in remission Status: Resolved Current/Historical Medications Scheduled Bupropion HCl (Bupropion HCl Sr), 150 MG PO BID Pramipexole Dihydrochloride (Pramipexole Dihydrochlori), 0.25 MG PO HS Allergies Coded Allergies: No Known Allergies (Verified , 04/03/16) Vital Signs Date Time Temp Pulse Resp B/P Pulse Ox O2 Delivery O2 Flow Rate FiO2 05/25/16 02:36 95 17 159/107 98 Room Air 05/25/16 01:31 159/104 05/25/16 01:30 93 98 05/25/16 01:01 165/98 05/25/16 01:00 100 97 05/25/16 00:31 165/103 05/25/16 00:30 97 98 05/25/16 00:05 103 97 05/25/16 00:01 179/125 05/24/16 23:35 96 97 05/24/16 23:31 176/111 05/24/16 23:05 114 97 05/24/16 23:03 161/106 05/24/16 22:35 109 19 100 05/24/16 22:31 184/134 05/24/16 22:05 112 98 05/24/16 22:01 171/116 05/24/16 21:35 98 22 98 05/24/16 21:31 173/110 05/24/16 21:05 105 27 98 05/24/16 21:01 187/108 05/24/16 20:53 36.5 117 20 157/119 98 Room Air 05/24/16 20:53 97 Room Air 05/24/16 20:53 170/121 05/24/16 20:36 111 Laboratory Results 05/24/16 20:44 Red Blood Count 4.85, Mean Corpuscular Volume 85.8, Mean Corpuscular Hemoglobin 29.5, Mean Corpuscular Hemoglobin Concent 34.4, Mean Platelet Volume 10.4, Neutrophils (%) (Auto) 87.6, Lymphocytes (%) (Auto) 6.4, Monocytes (%) (Auto) 5.5, Eosinophils (%) (Auto) 0.1, Basophils (%) (Auto) 0.1, Neutrophils # (Auto) 11.67, Lymphocytes # (Auto) 0.86, Monocytes # (Auto) 0.74, Eosinophils # (Auto) 0.02, Basophils # (Auto) 0.02 05/24/16 20:44 Test 05/24/16 20:44 05/24/16 23:55 05/25/16 00:04 White Blood Count 13.35 K/uL (4.8-10.8) Red Blood Count 4.85 M/uL (4.7-6.1) Hemoglobin 14.3 g/dL (14.0-18.0) Hematocrit 41.6 % (42-52) Mean Corpuscular Volume 85.8 fL (80-100) Mean Corpuscular Hemoglobin 29.5 pg (25-34) Mean Corpuscular Hemoglobin Concent 34.4 g/dl (32-36) Platelet Count 275 K/uL (130-400) Mean Platelet Volume 10.4 fL (7.4-10.4) Neutrophils (%) (Auto) 87.6 % Lymphocytes (%) (Auto) 6.4 % Monocytes (%) (Auto) 5.5 % Eosinophils (%) (Auto) 0.1 % Basophils (%) (Auto) 0.1 % Neutrophils # (Auto) 11.67 K/uL (1.4-6.5) Lymphocytes # (Auto) 0.86 K/uL (1.2-3.4) Monocytes # (Auto) 0.74 K/uL (0.11-0.59) Eosinophils # (Auto) 0.02 K/uL (0-0.5) Basophils # (Auto) 0.02 K/uL (0-0.2) RDW Standard Deviation 43.8 fL (36.4-46.3) RDW Coefficient of Variation 13.9 % (11.5-14.5) Immature Granulocyte % (Auto) 0.3 % Immature Granulocyte # (Auto) 0.04 K/uL (0.00-0.02) Prothrombin Time 11.7 SECONDS (9.0-12.0) Prothromb Time International Ratio 1.1 (0.9-1.1) Activated Partial Thromboplast Time 25.0 SECONDS (21.0-31.0) Partial Thromboplastin Ratio 1.0 Anion Gap 9.0 mmol/L (3-11) Est Creatinine Clear Calc Drug Dose 85.5 ml/min Estimated GFR () 92.2 Estimated GFR (Non- 79.5 BUN/Creatinine Ratio 8.2 (10-20) Osmolality 295 mOsm/kg (280-300) Calcium Level 8.5 mg/dl (8.5-10.1) Total Bilirubin 0.3 mg/dl (0.2-1) Direct Bilirubin < 0.1 mg/dl (0-0.2) Aspartate Amino Transf (AST/SGOT) 20 U/L (15-37) Alanine Aminotransferase (ALT/SGPT) 27 U/L (12-78) Alkaline Phosphatase 83 U/L (45-117) Total Creatine Kinase 228 U/L (39-308) Creatine Kinase MB 2.0 ng/ml (0.5-3.6) Creatine Kinase MB Ratio 0.9 (0-3.0) Troponin I < 0.015 ng/ml (0-0.045) Total Protein 7.2 gm/dl (6.4-8.2) Albumin 3.8 gm/dl (3.4-5.0) Lipase 760 U/L (73-393) Salicylates Level 2.0 mg/dl (2.8-20) Acetaminophen Level < 2 ug/ml (10-30) Ethyl Alcohol mg/dL < 3.0 mg/dl (0-3) Urine Color YELLOW Urine Appearance CLEAR (CLEAR) Urine pH 7.0 (4.5-7.5) Urine Specific Sanders 1.011 (1.000-1.030) Urine Protein NEG (NEG) Urine Glucose (UA) NEG (NEG) Urine Ketones TRACE (NEG) Urine Occult Blood NEG (NEG) Urine Nitrite NEG (NEG) Urine Bilirubin NEG (NEG) Urine Urobilinogen NEG (NEG) Urine Leukocyte Esterase TRACE (NEG) Urine WBC (Auto) 1-5 /hpf (0-5) Urine RBC (Auto) 5-10 /hpf (0-4) Urine Hyaline Casts (Auto) 1-5 /lpf (0-5) Urine Epithelial Cells (Auto) 10-20 /lpf (0-5) Urine Bacteria (Auto) NEG (NEG) Urine Crystals CALCIUM OXALATE (NONE Urine Opiates Screen NEG (NEG) Urine Methadone, Qualitative NEG (NEG) Urine Barbiturates NEG (NEG) Ur Amphetamine/Methamphetamine NEG (NEG) MDMA (Ecstasy) Screen POS (NEG) Urine Benzodiazepines Screen NEG (NEG) Urine Cocaine Metabolite NEG (NEG) Urine Marijuana (THC) POS (NEG) Bedside Glucose 90 mg/dl (70-99) Medications Administered Medications (Trade) Dose Ordered Sig/Cathie Route Start Time Stop Time Status Last Admin Dose Admin Sodium Chloride 2,000 ml @ 999 mls/hr Q2H1M STAT IV 05/24/16 20:17 05/24/16 22:17 DC 05/24/16 20:17 999 MLS/HR Sodium Chloride (Nss 1000ml) 1,000 ml @ 200 mls/hr Q5H STAT IV 05/24/16 20:17 05/25/16 01:16 DC 05/24/16 20:17 200 MLS/HR Departure Information Impression Primary Impression: Drug overdose, intentional Dispostion Still a Patient Referrals Anshu Inman, [facility] (PCP) [facility]
--- NOTE | 2016-05-25 06:16 | EMERGENCY ROOM VISIT NOTE ---
ED Visit Note First contact with patient: 01:52 Patient has been evaluated by crisis counselor. The plan is that the patient is able to contract for safety. [facility]. And the patient has been scheduled for outpatient evaluation from psychiatry patient is stable for discharge at 6:16 AM
[2016-05-25 06:30] VITALS: BP 167/88; PULSE 96; O2SAT 99
[2016-05-29 22:28] LABS: PHENCYCLIDINE GC/MS NEGATIVE NG/ML (CUTOFF=25)
== END 2016-05-25 06:46 | disposition home or self-care (01) ==
LOC: EDBD 20:05 → C.EDB 20:07
DX: T48.4X2A Poisoning by expectorants, intentional self-harm, initial encounter (principal); X58.XXXA Exposure to other specified factors, initial encounter; F14.10 Cocaine abuse, uncomplicated; F12.10 Cannabis abuse, uncomplicated; F32.9 Major depressive disorder, single episode, unspecified; F10.239 Alcohol dependence with withdrawal, unspecified; Z87.891 Personal history of nicotine dependence

== ENCOUNTER → 2016-06-21 | Outpatient (CLI) | payer OTHER ==
[~2016-06-21] MED LIST changes: -CTP1 PO; -HYDR50CA2 PO; -IBUP-1451 PO; -LBR25 PO; -MELA1TAB54 PO; +MRP25 PO; -NRV/10 PO; -OMEP20TA74 PO; -PROP40TA5 PO; +WLLSR150 PO; -ZLF/100 PO
[2016-06-21 14:52] LABS: BLOOD UREA NITROGEN 10 mg/dl (7-18); BUN/CREATININE RATIO 10.3 (10-20); CALCIUM 9.3 mg/dl (8.5-10.1); CARBON DIOXIDE 32 mmol/L (21-32); CHLORIDE 104 mmol/L (98-107); CREATININE 0.98 mg/dl (0.60-1.40); GLUCOSE 92 mg/dl (70-99); POTASSIUM 3.8 mmol/L (3.5-5.1); SODIUM 141 mmol/L (136-145)
== END | disposition home or self-care (01) ==
LOC: C.LABBC 10:06
PROVIDERS: ATTEND Family Medicine
DX: I10 Essential (primary) hypertension (principal)

== ENCOUNTER 2019-12-31 07:35 | Inpatient (IN) ==
--- OUTSIDE RECORDS SUMMARY | 2019-12-31 07:38 | External Medical Summary | Continuity of Care Document ---
:1985 Author Name Vickey Talbert, Provider Address Unavailable Unavailable , Care Team Providers Name Role Phone Unavailable Unavailable Unavailable Kyung Fabian PA-C Unavailable [email or web address] Anshu Inman DO Unavailable [email or web address] YVETTE FONG I Unavailable Unavailable Unavailable Unavailable Unavailable Problems Acid reflux disease (530.81) (K21.9) Insomnia (780.52) (G47.00) Migraine headache (346.90) (G43.909) Hypertension (401.9) (I10) Current smoker (305.1) (F17.200) Restless legs syndrome (333.94) (G25.81) Depression with anxiety (300.4) (F41.8) Allergies and Adverse Reactions No Known Drug Allergies (Allergy) Medications Propranolol HCl - 10 MG Oral Tablet; TAKE 1 TABLET 3 TIMES D Glai OVIEDO Start: 21-Jun-2016 Refills: 0 Lexapro 5 MG Oral Tablet; Take 1 tablet daily , M.DRoberto Carlos Start: 21-Jun-2016 Refills: 0 Pramipexole Dihydrochloride 0.25 MG Oral Tablet; TAKE 1 TABLET Bedtime NAUN Fabian Quantity: 30 Refills: 3 buPROPion HCl ER (SR) 150 MG Oral Tablet Extended Release 12 Hour; TAKE 1 TABLET TWICE A DAY BY MOUTH NAUN Fabian Start: 18-Mar-2015 Quantity: 60 Refills: 0 RA Omeprazole 20 MG Oral Tablet Delayed Release; take 1 capsule by mouth once daily DO Anshu Inman Start: 22-Jun-2015 Quantity: 60 Refills: 1 amLODIPine Besylate 10 MG Oral Tablet; take 1/2 tablet daily DO Anshu Inman Start: 20-Apr-2015 Quantity: 90 Refills: 1 Procedures History of Oral Surgery Tooth Extraction Status: Completed Immunizations Influenza On: 15-Dec-2014 11:05 Lot #: [id number], [employer] Fluvirin Intramuscular Injectable On: 14-Dec-2015 Influenza On: 05-Jan-2017 Family History Father Family history of myocardial infarction (V17.3) (Z82.49) Sta tus: Active Family history of diabetes mellitus (V18.0) (Z83.3) Status: Active Unknown Family Member Family history of diabetes mellitus Status: Active Comm ents: Paternal Relatives (V18.0) (Z83.3) Social History - Smoking Status Smoker Plan of Treatment Planned Observations Planned Goals not documented Results No Known Results Results not documented
[2019-12-31] MEDS ORDERED: LORazepam 1 MG/2 ML VIAL IV STA (07:52)
[2019-12-31] MEDS ORDERED: SODIUM CHLORIDE 0.9% 1000ML 2,000 ML IV SCH (08:00)
[2019-12-31] MEDS ORDERED: fentaNYL citrate 100 MCG/2 ML VIAL ONE (08:15)
[2019-12-31] MEDS ORDERED: niCARdipine HCL INJ 2.5 MG/ML 10 ML AMP ONE (08:15)
[2019-12-31] MEDS ORDERED: NITROGLYCERIN/D5W 100MCG/ML 20ML SYR ONE (08:15)
[2019-12-31] MEDS ORDERED: MIDAZOLAM HCL 1 MG/ML 2ML VIAL ONE (08:15)
[2019-12-31] MEDS ORDERED: HEPARIN (PORCINE) 1000 UNIT/ML 10 ML (CATH LAB USE ONLY) ONE (08:15)
[2019-12-31] MEDS: MAGNESIUM SULFATE / D5W 1 GM/100 ML BAG IV SCH ×2 (08:19→08:50)
[2019-12-31] MEDS ORDERED: SODIUM CHLORIDE 0.9% 1000ML 1,000 ML IV ONE ×2 (08:20→09:01)
[2019-12-31 08:37] LABS: Basophils # (auto) 0.02 K/uL (0-0.2); Basophils % (auto) 0.2 %; Eosinophils # (auto) 0.04 K/uL (0-0.5); Eosinophils % (auto) 0.4 %; Hemoglobin 16.2 g/dL (14.0-18.0); Immature Granulocytes # (auto) 0.03 K/uL (0.00-0.02); Immature Granulocytes % (auto) 0.3 %; Lymphocytes # (auto) 1.13 K/uL (1.2-3.4); Lymphocytes % (auto) 9.9 %; Mean Corpuscular Hemoglobin 31.4 pg (25-34); Mean Corpuscular Volume 87.2 fL (80-100); Mean Platelet Volume 10.5 fL (7.4-10.4); Monocytes # (auto) 0.66 K/uL (0.11-0.59); Monocytes % (auto) 5.8 %; Neutrophils # (auto) 9.52 K/uL (1.4-6.5); Neutrophils % (auto) 83.4 %; Platelet Count 322 K/uL (130-400); RDW Coefficient of Variation 13.1 % (11.5-14.5); Red Blood Count 5.16 M/uL (4.7-6.1)
--- NOTE | 2019-12-31 08:41 | XRay Report ---
XR chest 1V portable HISTORY: Mid chest pain. Myocardial infarction. COMPARISON: Chest 05/24/2016. FINDINGS: The lungs are clear. Cardiac silhouette is normal in size. No pleural effusions. No pneumot horax. IMPRESSION: No acute process. ACT 112: Negative or not required by law. Electronically signed by: King Canada M.D. 12/31/2019 8:39 AM
--- NOTE | 2019-12-31 08:50 | Emergency Department Note ---
History of Present Illness General Chief complaint: Anxiety Time Seen by Provider: 12/31/19 07:37 Source: patient, EMS, RN notes reviewed and old records reviewed Mode of arrival: EMS Limitations: altered mental status and intoxication History of Present Illness Provider complaint: anxiety Onset (ago): day(s) 2 Severity: moderate Pain Consistency: + intermittent Maximum Pain Intensity: 3 Current Pain Intensity: 3 Quality: + aching Relieved By: + immobilization Exacerbated By: + movement Associated symptoms: + diaphoresis, + malaise and + weakness; no chest pain, no cough, no headaches, no nausea/vomiting and no shortness of breath Treatments prior to arrival: none This is a 34-year-old male who was brought in by EMS over concerns that the patient is depressed and suicidal. The patient took 2 bottles of Delsym cough medicine. The patient reports it was both to get high as well as a suicide attempt. Upon arrival to the emergency department the patient's only complaint is he is extremely anxious. He is covered in sweat. He called EMS. He has not taken anything for the anxiety. He reports thinking about losing his job has made the anxiety worse and nothing has made it better. Home Medications Home Medications Medication Instructions Recorded Confirmed Type No Known Home Medications 05/06/18 12/31/19 History Allergies Allergy/AdvReac Type Severity Reaction Status Date / Time No Known Allergies Allergy Verified 05/06/18 22:53 Past Med/Surg History Medical History Cocaine abuse Depression Marijuana abuse in remission Surgical History History of dental surgery No pertinent past surgical history Social History Smoking Status: Current every day smoker Tobacco Type: Cigarettes Cigarettes Per Day: 10; Second Hand Exposure: No; Do You Dip or Chew Tobacco: No; Tobacco Cessation Education Requested by Patient: Yes Hx Alcohol Use: Yes Alcohol type: beer Hx Substance Use: Yes Last Used Substance: Unknown Last Used Substance Other:: Patient believes a year ago Preferred Language: Italian Communication Ability: Effective 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 Beliefs That Will Affect Care: None Current Living Situation: Alone Current Living Situation Comment: Roomate Other Information That Helps Us Care for You: Yes (losing job) Feels Safe at Home: Yes Safety Concerns: Feels Safe At This Time Assistive Devices: None Assistive Devices Comment: Upper dentures with patient Review of Systems A total of 10 systems reviewed and were otherwise negative Physical Exam Vital Signs Vital Signs - 24 hr 12/31/19 07:30 12/31/19 07:57 12/31/19 08:20 Temperature 37.4 C Temperature Source Oral Pulse Rate 89 56 L Pulse Rate from SpO2 Sensor 55 L Respiratory Rate 18 25 H Respiratory Effort / Characteristics Non-Labored Spontaneous Respiratory Depth Normal Blood Pressure 124/86 91/81 L Blood Pressure Mean 98 86 Blood Pressure Position Sitting Pulse Oximetry 98 98 98 Oxygen Delivery Method Room Air Room Air Sepsis Recent Fever Within 48 Hours No Sepsis New/Unexplained Change in Mental Status No Sepsis Action Taken by Nursing No Action Required 12/31/19 08:24 12/31/19 08:25 12/31/19 08:30 Temperature Temperature Source Pulse Rate 93 H 87 Pulse Rate from SpO2 Sensor 90 89 86 Respiratory Rate 24 24 Respiratory Effort / Characteristics Respiratory Depth Blood Pressure 110/80 138/72 124/79 Blood Pressure Mean 89 100 90 Blood Pressure Position Pulse Oximetry 98 98 98 Oxygen Delivery Method Sepsis Recent Fever Within 48 Hours Sepsis New/Unexplained Change in Mental Status Sepsis Action Taken by Nursing 12/31/19 08:35 Temperature Temperature Source Pulse Rate 87 Pulse Rate from SpO2 Sensor 88 Respiratory Rate 21 Respiratory Effort / Characteristics Respiratory Depth Blood Pressure 123/72 Blood Pressure Mean 90 Blood Pressure Position Pulse Oximetry 98 Oxygen Delivery Method Sepsis Recent Fever Within 48 Hours Sepsis New/Unexplained Change in Mental Status Sepsis Action Taken by Nursing VITAL SIGNS - Vital signs and nursing notes were reviewed. GENERAL - 34-year-old male appearing extremely diaphoretic, soaked through his clothes, pale SKIN - Without rashes. HEAD - NC/AT. EYES - PERRL with EOMI bilaterally. Sclera anicteric. Palpebral conjunctiva pink and moist with no injection noted. EARS - No deformities of external structures noted on gross examination bilaterally. No pain elicited with palpation of the tragus bilaterally. External auditory canals without discharge or otorrhea. Tympanic membranes pearly alfaro without retraction or bulging. No fluid or purulent material visualized behind the TM. Handle of malleus, umbo, cone of light, pars tensa/flaccid all easily visualized. NOSE - Midline and without cyanosis. No epistaxis or purulent drainage noted. Septum midline without deviation or septal hematoma noted. MOUTH/OROPHARYNX - Without perioral cyanosis. Buccal mucosa pink and moist and without leukoplakia. Tongue midline with equal elevation of palate bilaterally. No tonsillar hypertrophy, erythema, or exudates noted. dentition noted. NECK - Neck with FROM. Supple to palpation. lymphadenopathy noted. No nuchal rigidity. LUNGS - Chest wall symmetric without accessory muscle use, intercostals retractions, or central cyanosis. Normal vesicular breath sounds CTA B/L. No wheezes, rales, or rhonchi appreciated. CARDIAC - RRR with S1/S2. No murmur, rubs, or gallops appreciated. ABDOMEN - Abdominal contour without pulsations or visible masses. BS normoactive all four quadrants. No tenderness, palpable masses, hepatosplenomeg forrest, or ascites noted. EXTREMITIES - No clubbing or peripheral cyanosis. No pretibial edema present. +3/5 radial, posterior tibial, and dorsalis pedis pulses palpated throughout. +5/5 strength noted in UE/LE bilaterally. NEUROLOGIC - Cranial nerves II through XII grossly intact. Sensory intact to light touch throughout. Patellar reflexes +2/4. PSYCH - A&Ox3 and cooperates fully with examiner. Pt is very pleasant and interacts well with examiner. Course Administered Medications Clonidine HCl (Clonidine Hcl 0.1 Mg Tab) 0.1 mg PO Q8 PRN PRN Reason: Blood Pressure - High Stop: 01/30/20 15:21 Last Admin: 12/31/19 18:03 Dose: 0.1 mg Documented by: [id number] Heparin Sodium (Porcine) (Heparin Sod 5,000 Unit/0.5 Ml Vial) 5,000 units SQ Q12 NEAL Stop: 01/31/20 20:59 Last Admin: 01/01/20 20:23 Dose: 5,000 units Documented by: [id number] Cosigned by: [id number] Potassium Chloride/Sodium Chloride (Normal Saline W/20 Meq Kcl) 20 meq in 1,000 mls @ 125 mls/hr IV .Q8H NEAL Stop: 01/30/20 13:13 Last Admin: 01/02/20 05:39 Dose: 125 mls/hr Documented by: [id number] Infusion: 01/02/20 05:39 Dose: 125 mls/hr Documented by: [id number] Admin: 01/01/20 22:23 Dose: 125 mls/hr Documented by: [id number] Infusion: 01/01/20 22:23 Dose: 125 mls/hr Documented by: [id number] Admin: 01/01/20 15:21 Dose: 125 mls/hr Documented by: [id number] Infusion: 01/01/20 13:46 Dose: 125 mls/hr Documented by: [id number] Admin: 01/01/20 05:46 Dose: 125 mls/hr Documented by: [id number] Infusion: 01/01/20 05:46 Dose: 125 mls/hr Documented by: [id number] Admin: 12/31/19 22:25 Dose: 125 mls/hr Documented by: [id number] Infusion: 12/31/19 22:25 Dose: 125 mls/hr Documented by: [id number] Admin: 12/31/19 15:09 Dose: 125 mls/hr Documented by: [id number] Metoprolol Tartrate (Metoprolol Tartrate 25 Mg Tab) 25 mg PO BID NEAL Stop: 01/30/20 20:59 Last Admin: 01/01/20 20:23 Dose: 25 mg Documented by: [id number] Admin: 01/01/20 08:54 Dose: 25 mg Documented by: [id number] Admin: 12/31/19 20:51 Dose: 25 mg Documented by: [id number] Discontinued Medications Clopidogrel Bisulfate (Clopidogrel Bisulfate 300 Mg Tab) Confirm Administered Dose 600 mg .ROUTE .STK-MED ONE Stop: 01/01/20 13:37 Last Admin: 01/01/20 13:50 Dose: 600 mg Documented by: [id number] Fentanyl Citrate (Fentanyl Citrate 100 Mcg/2 Ml Vial) Confirm Administered Dose 100 mcg .ROUTE .STK-MED ONE Stop: 12/31/19 08:16 Last Admin: 12/31/19 14:37 Dose: Not Given Documented by: [id number] Fentanyl Citrate (Fentanyl Citrate 100 Mcg/2 Ml Vial) Confirm Administered Dose 100 mcg .ROUTE .STK-MED ONE Stop: 01/01/20 12:35 Last Increment: 01/01/20 13:50 Dose: 75 mcg Documented by: [id number] Heparin Sodium (Porcine) (Heparin (Porcine) 1000 Unit/Ml 10 Ml (Post Doc Fellowship Use Only)) Confirm Administered Dose 10,000 units .ROUTE .STK-MED ONE Stop: 12/31/19 08:16 Last Admin: 12/31/19 14:37 Dose: Not Given Documented by: [id number] Heparin Sodium (Porcine) (Heparin (Porcine) 1000 Unit/Ml 10 Ml (Post Doc Fellowship Use Only)) Confirm Administered Dose 10,000 units .ROUTE .STK-MED ONE Stop: 01/01/20 12:35 Last Admin: 01/01/20 13:29 Dose: 10,000 units Documented by: [id number] Heparin Sodium/Dextrose (Heparin Iv Standard With Bolus) 1 ea IV NOW STA; Protocol Stop: 12/31/19 15:23 Last Admin: 12/31/19 16:05 Dose: 1 ea Documented by: [id number] Heparin Sodium/Sodium Chloride (Heparin In Nss Infusion 1000 Unit/500 Ml (2 U/Ml) Bag) Confirm Administered Dose 3,000 units IV .STK-MED ONE Stop: 12/31/19 08:16 Last Admin: 12/31/19 14:37 Dose: Not Given Documented by: [id number] Heparin Sodium/Sodium Chloride (Heparin In Nss Infusion 1000 Unit/500 Ml (2 U/Ml) Bag) Confirm Administered Dose 3,000 units IV .STK-MED ONE Stop: 01/01/20 12:36 Last Admin: 01/01/20 12:59 Dose: 3,000 units Documented by: [id number] Sodium Chloride (Nss 1000ml) 2,000 mls @ 999 mls/hr IV .Q2H1M NEAL Stop: 12/31/19 10:00 Last Infusion: 12/31/19 10:22 Dose: 0 mls/hr Documented by: [id number] Admin: 12/31/19 08:16 Dose: 999 mls/hr Documented by: [id number] Lorazepam (Ativan) 1 mg in 2 mls @ 2 mls/min IV NOW STA Stop: 12/31/19 07:53 Last Admin: 12/31/19 08:16 Dose: 2 mls/min Documented by: [id number] Magnesium Sulfate/Dextrose (Magnesium Sulfate / D5w) 1 gm in 100 mls @ 200 mls/hr IV Q30M NEAL Stop: 12/31/19 09:14 Last Infusion: 12/31/19 09:42 Dose: 0 mls/hr Documented by: [id number] Admin: 12/31/19 08:50 Dose: 200 mls/hr Documented by: [id number] Infusion: 12/31/19 08:49 Dose: 200 mls/hr Documented by: [id number] Admin: 12/31/19 08:19 Dose: 200 mls/hr Documented by: [id number] Sodium Chloride (Nss 1000ml) 1,000 mls @ 999 mls/hr IV .Q1H1M ONE Stop: 12/31/19 09:20 Last Infusion: 12/31/19 09:42 Dose: 0 mls/hr Documented by: [id number] Admin: 12/31/19 08:25 Dose: 999 mls/hr Documented by: [id number] Potassium Chloride (K Yuval / Wtr) 10 meq in 100 mls @ 100 mls/hr IV Q1H NEAL Stop: 12/31/19 10:59 Last Infusion: 12/31/19 11:10 Dose: 0 mls/hr Documented by: [id number] Admin: 12/31/19 10:07 Dose: 100 mls/hr Documented by: [id number] Infusion: 12/31/19 10:05 Dose: 100 mls/hr Documented by: [id number] Admin: 12/31/19 09:05 Dose: 100 mls/hr Documented by: [id number] Sodium Chloride (Nss 1000ml) 1,000 mls @ 999 mls/hr IV .Q1H1M ONE Stop: 12/31/19 10:01 Last Infusion: 12/31/19 11:10 Dose: 0 mls/hr Documented by: [id number] Admin: 12/31/19 10:07 Dose: 999 mls/hr Documented by: [id number] Heparin Sodium/Dextrose (Heparin Sodium/Dextrose) 25,000 units in 500 mls @ 27 mls/hr IV .[id number] [facility]; Protocol Stop: 01/30/20 15:29 Last Titration: 01/01/20 15:23 Dose: 0 units/hr, 0 mls/hr Documented by: [id number] Cosigned by: [id number] Titration: 01/01/20 09:24 Dose: 1,350 units/hr, 27 mls/hr Documented by: [id number] Cosigned by: [id number] Titration: 01/01/20 07:11 Dose: 1,350 units/hr, 27 mls/hr Documented by: [id number] Cosigned by: [id number] Titration: 01/01/20 01:38 Dose: 1,350 units/hr, 27 mls/hr Documented by: [id number] Cosigned by: [id number] Titration: 12/31/19 19:08 Dose: 1,200 units/hr, 24 mls/hr Documented by: [id number] Cosigned by: [id number] Titration: 12/31/19 16:58 Dose: 0 units/hr, 0 mls/hr Documented by: [id number] Cosigned by: [id number] Admin: 12/31/19 16:04 Dose: 1,200 units/hr, 24 mls/hr Documented by: [id number] Cosigned by: [id number] Heparin Sodium (Porcine) 5,000 (units/ Syringe) 5 mls @ 10 mls/min IV NOW ONE Stop: 12/31/19 15:46 Last Admin: 12/31/19 16:04 Dose: 10 mls/min Documented by: [id number] Cosigned by: [id number] Heparin Sodium (Porcine) 3,000 (units/ Syringe) 3 mls @ 10 mls/min IV ONE ONE Stop: 01/01/20 02:01 Last Admin: 01/01/20 01:55 Dose: 10 mls/min Documented by: [id number] Cosigned by: [id number] Influenza Virus Vaccine Quadrival (Influenza Virus Quad Vaccine 0.5 Ml Syr) 0.5 ml IM .ONCE ONE Stop: 12/31/19 18:01 Last Admin: 12/31/19 16:06 Dose: 0.5 ml Documented by: [id number] Lorazepam (Lorazepam 0.5 Mg Tab) 0.5 mg PO Q6H PRN PRN Reason: Anxiety Stop: 01/30/20 14:53 Last Admin: 01/01/20 20:27 Dose: 0.5 mg Documented by: [id number] Admin: 12/31/19 22:25 Dose: 0.5 mg Documented by: [id number] Admin: 12/31/19 15:09 Dose: 0.5 mg Documented by: [id number] Midazolam HCl (Midazolam Hcl 1 Mg/Ml 2ml Vial) Confirm Administered Dose 2 mg .ROUTE .STK-MED ONE Stop: 12/31/19 08:16 Last Admin: 12/31/19 14:37 Dose: Not Given Documented by: [id number] Midazolam HCl (Midazolam Hcl 1 Mg/Ml 2ml Vial) Confirm Administered Dose 2 mg .ROUTE .STK-MED ONE Stop: 01/01/20 12:35 Last Admin: 01/01/20 13:33 Dose: 2 mg Documented by: [id number] Midazolam HCl (Midazolam Hcl 1 Mg/Ml 2ml Vial) Confirm Administered Dose 2 mg .ROUTE .STK-MED ONE Stop: 01/01/20 13:19 Last Admin: 01/01/20 13:50 Dose: Not Given Documented by: [id number] Nicardipine HCl (Nicardipine Hcl Inj 2.5 Mg/Ml 10 Ml Amp) Confirm Administered Dose 25 mg .ROUTE .STK-MED ONE Stop: 12/31/19 08:16 Last Admin: 12/31/19 14:38 Dose: Not Given Documented by: [id number] Nicardipine HCl (Nicardipine Hcl Inj 2.5 Mg/Ml 10 Ml Amp) Confirm Administered Dose 25 mg .ROUTE .STK-MED ONE Stop: 01/01/20 12:35 Last Admin: 01/01/20 12:59 Dose: 25 mg Documented by: [id number] Nitroglycerin/Dextrose (Nitroglycerin/D5w 100mcg/Ml 20ml Syr) Confirm Administered Dose 2,000 mcg .ROUTE .STK-MED ONE Stop: 12/31/19 08:16 Last Admin: 12/31/19 14:37 Dose: Not Given Documented by: [id number] Nitroglycerin/Dextrose (Nitroglycerin/D5w 100mcg/Ml 20ml Syr) Confirm A dministered Dose 2,000 mcg .ROUTE .STK-MED ONE Stop: 01/01/20 12:36 Last Admin: 01/01/20 13:00 Dose: 2,000 mcg Documented by: [id number] Potassium Chloride (Potassium Chloride 20 Meq Tabcr) 40 meq PO NOW STA Stop: 12/31/19 08:58 Last Admin: 12/31/19 09:04 Dose: 40 meq Documented by: [id number] Critical Care Time -I have personally spent greater than 90 minutes of critical care time in the direct management of this patient. This includes bedside care, interpretation of diagnostic studies, and testing, discussion with consultants, patient, and family members, and other required patient management activities. This 90 minutes is in excess of all separately billable procedures. Medical Decision Making Differential Diagnosis Cardiac ischemia, aortic dissection, pulmonary embolism, pneumothorax, pneumonia, pericarditis, myocarditis, esophageal rupture, GERD, cholecystitis, pancreatitis, musculoskeletal, as well as other pathologies. Medical Records Attestation: I reviewed the patient's medical records. Home Medications Current Medication List: was personally reviewed by me Laboratory Data Attestation: I reviewed the patient's lab results. Result diagrams: 01/02/20 06:28 01/02/20 06:28 Lab Results 12/31/19 12/31/19 12/31/19 Range/Units 07:58 07:58 07:58 WBC 11.40 H (4.8-10.8) K/uL RBC 5.16 (4.7-6.1) M/uL Hgb 16.2 (14.0-18.0) g/dL Hct 45.0 (42-52) % MCV 87.2 (80-100) fL MCH 31.4 (25-34) pg MCHC 36.0 (32-36) g/dL RDW Std Deviation 42.0 (36.4-46.3) fL RDW Coeff of Liz 13.1 (11.5-14.5) % Plt Count 322 (130-400) K/uL MPV 10.5 H (7.4-10.4) fL Immature Gran % (Auto) 0.3 % Neut % (Auto) 83.4 % Lymph % (Auto) 9.9 % [place] % (Auto) 5.8 % Eos % (Auto) 0.4 % Baso % (Auto) 0.2 % Neut # (Auto) 9.52 H (1.4-6.5) K/uL Lymph # (Auto) 1.13 L (1.2-3.4) K/uL [place] # (Auto) 0.66 H (0.11-0.59) K/uL Eos # (Auto) 0.04 (0-0.5) K/uL Baso # (Auto) 0.02 (0-0.2) K/uL Immature Gran # (Auto) 0.03 H (0.00-0.02) K/uL PT (9.0-12.0) Seconds INR (0.9-1.1) APTT (21.0-31.0) Seconds PTT Ratio Sodium 138 (136-145) mmol/L Potassium 2.5 L* (3.5-5.1) mmol/L Chloride 101 (98-107) mmol/L Carbon Dioxide 27 (21-32) mmol/L Anion Gap 9.0 (3-11) BUN 14 (7-18) mg/dl Creatinine 2.55 H (0.6-1.4) mg/dl Est Cr Clr Drug Dosing 37.4 ml/min Est GFR ( Amer) 36.0 Est GFR (Non-Af Amer) 31.1 BUN/Creatinine Ratio 5.3 L (10-20) Glucose 106 H (70-99) mg/dl Calcium 9.8 (8.5-10.1) mg/dl Magnesium 2.2 (1.8-2.4) mg/dl Total Bilirubin 0.8 (0.2-1) mg/dl AST 11 L (15-37) U/L ALT 20 (12-78) U/L Alkaline Phosphatase 94 (45-117) U/L Total Creatine Kinase 208 (39-308) U/L CK-MB (CK-2) 3.8 H (0.5-3.6) ng/ml CK/CKMB % Calc 1.8 (0-3.0) Troponin I 0.088 H* (0-0.045) ng/ml Total Protein 8.2 (6.4-8.2) gm/dl Albumin 4.3 (3.4-5.0) gm/dl Globulin 3.9 (2.5-4.0) gm/dl Albumin/Globulin Ratio 1.1 (0.9-2) Salicylates 3.7 (2.8-20) mg/dl Acetaminophen < 2 L (10-30) ug/ml Ethyl Alcohol mg/dL (0-3) mg/dl COVID-19 Eval Order SARS-CoV-2, RNA, NAAT (NEGATIVE) 12/31/19 12/31/19 12/31/19 Range/Units 07:58 08:07 08:32 WBC (4.8-10.8) K/uL RBC (4.7-6.1) M/uL Hgb (14.0-18.0) g/dL Hct (42-52) % MCV (80-100) fL MCH (25-34) pg MCHC (32-36) g/dL RDW Std Deviation (36.4-46.3) fL RDW Coeff of Liz (11.5-14.5) % Plt Count (130-400) K/uL MPV (7.4-10.4) fL Immature Gran % (Auto) % Neut % (Auto) % Lymph % (Auto) % [place] % (Auto) % Eos % (Auto) % Baso % (Auto) % Neut # (Auto) (1.4-6.5) K/uL Lymph # (Auto) (1.2-3.4) K/uL [place] # (Auto) (0.11-0.59) K/uL Eos # (Auto) (0-0.5) K/uL Baso # (Auto) (0-0.2) K/uL Immature Gran # (Auto) (0.00-0.02) K/uL PT 11.1 (9.0-12.0) Seconds INR 1.1 (0.9-1.1) APTT 25.2 (21.0-31.0) Seconds PTT Ratio 0.9 Sodium (136-145) mmol/L Potassium (3.5-5.1) mmol/L Chloride (98-107) mmol/L Carbon Dioxide (21-32) mmol/L Anion Gap (3-11) BUN (7-18) mg/dl Creatinine (0.6-1.4) mg/dl Est Cr Clr Drug Dosing ml/min Est GFR ( Amer) Est GFR (Non-Af Amer) BUN/Creatinine Ratio (10-20) Glucose (70-99) mg/dl Calcium (8.5-10.1) mg/dl Magnesium (1.8-2.4) mg/dl Total Bilirubin (0.2-1) mg/dl AST (15-37) U/L ALT (12-78) U/L Alkaline Phosphatase (45-117) U/L Total Creatine Kinase (39-308) U/L CK-MB (CK-2) (0.5-3.6) ng/ml CK/CKMB % Calc (0-3.0) Troponin I (0-0.045) ng/ml Total Protein (6.4-8.2) gm/dl Albumin (3.4-5.0) gm/dl Globulin (2.5-4.0) gm/dl Albumin/Globulin Ratio (0.9-2) Salicylates (2.8-20) mg/dl Acetaminophen (10-30) ug/ml Ethyl Alcohol mg/dL < 3.0 (0-3) mg/dl COVID-19 Eval [email or web address] SARS-CoV-2, RNA, NAAT (NEGATIVE) 12/31/19 Range/Units 08:32 WBC (4.8-10.8) K/uL RBC (4.7-6.1) M/uL Hgb (14.0-18.0) g/dL Hct (42-52) % MCV (80-100) fL MCH (25-34) pg MCHC (32-36) g/dL RDW Std Deviation (36.4-46.3) fL RDW Coeff of Liz (11.5-14.5) % Plt Count (130-400) K/uL MPV (7.4-10.4) fL Immature Gran % (Auto) % Neut % (Auto) % Lymph % (Auto) % [place] % (Auto) % Eos % (Auto) % Baso % (Auto) % Neut # (Auto) (1.4-6.5) K/uL Lymph # (Auto) (1.2-3.4) K/uL [place] # (Auto) (0.11-0.59) K/uL Eos # (Auto) (0-0.5) K/uL Baso # (Auto) (0-0.2) K/uL Immature Gran # (Auto) (0.00-0.02) K/uL PT (9.0-12.0) Seconds INR (0.9-1.1) APTT (21.0-31.0) Seconds PTT Ratio Sodium (136-145) mmol/L Potassium (3.5-5.1) mmol/L Chloride (98-107) mmol/L Carbon Dioxide (21-32) mmol/L Anion Gap (3-11) BUN (7-18) mg/dl Creatinine (0.6-1.4) mg/dl Est Cr Clr Drug Dosing ml/min Est GFR ( Amer) Est GFR (Non-Af Amer) BUN/Creatinine Ratio (10-20) Glucose (70-99) mg/dl Calcium (8.5-10.1) mg/dl Magnesium (1.8-2.4) mg/dl Total Bilirubin (0.2-1) mg/dl AST (15-37) U/L ALT (12-78) U/L Alkaline Phosphatase (45-117) U/L Total Creatine Kinase (39-308) U/L CK-MB (CK-2) (0.5-3.6) ng/ml CK/CKMB % Calc (0-3.0) Troponin I (0-0.045) ng/ml Total Protein (6.4-8.2) gm/dl Albumin (3.4-5.0) gm/dl Globulin (2.5-4.0) gm/dl Albumin/Globulin Ratio (0.9-2) Salicylates (2.8-20) mg/dl Acetaminophen (10-30) ug/ml Ethyl Alcohol mg/dL (0-3) mg/dl COVID-19 Eval Order SARS-CoV-2, RNA, NAAT NEGATIVE (NEGATIVE) Imaging Data Radiologist's Impression: [place], [place] [phone] XRay Report Patient: JAE SANCHEZ JR Admit Date: 12/31/19 MR#: [id number] Address1: [address] [place] [address] Acct ID:[id number] Address2: Date: 1985 [facility] Zip: [place] [address] Age: 34 Location: ED Sex: M Room/Bed: Att Phy: Diagnosis: MHE Rhoda Phy: PCP,NO Service Date: 12/31/19 [facility] Phy: Interpreting Phy: King Canada MD Admit Phy: Ordering Phy: Taz Quiñones MD cc: ~ XR chest 1V portable HISTORY: Mid chest pain. Myocardial infarction. COMPARISON: Chest 05/24/2016. FINDINGS: The lungs are clear. Cardiac silhouette is normal in size. No pleural effusions. No pneumothorax. IMPRESSION: No acute process. ACT 112: Negative or not required by law. Electronically signed by: King Canada M.D. 12/31/2019 8:39 AM Dictated: 12/31/19836 Transcribed: 12/31/19836 ECG Data Attestation: I personally reviewed and interpreted this ECG as follows: Indication: + diaphoresis Rate (beats per minute): 93 Rhythm: + normal sinus ECG Intervals/blocks: + Normal QT-c (566) ECG ST segments: + ST depression (Anterolateral) and + ST elevation (Inferior) Comparison ECG Date: no prior available Additional Comments: Repeat EKG shows a normal sinus rhythm no ST elevation or depression QTC is 570 ventricular rate is 87. ST elevations and depressions have now corrected. Blood Pressure Blood Pressure Findings: Low blood pressure MDM Narrative Patient was seen and evaluated as above in room A8. Review was performed of nursing notes and vital signs. I did review pertinent previous visits and patient history. After obtaining a thorough history and physical examination the above work up was performed. This is a 34-year-old male who presents emergency department after taking a bottle of Delsym. Poison control was consulted. The patient is extremely diaphoretic. His EKG is concerning for a STEMI. Based on this the patient was given a normal saline bolus x2 along with Ativan and magnesium. Poison control recommended 2 g of magnesium for a QTC over 570. They recommended bicarb for QRS greater than 100. Repeat examination revealed improvement the patient's symptoms. I did discuss the patient's case and presentation with Dr. Mayfield as the patient is improved right now we both feel that the patient does not need the Post Doc Fellowship emergently. The patient was given a normal saline bolus x2 as well as Ativan and magnesium. This resulted in immediate improvement in the patient's EKG. Due to the presentation of the patient we did admit the patient to the medicine service. An order was placed for continuous cardiac monitoring. The monitor shows a rate of 100 with Normal Sinus rhythm. The patient was evaluated during the global COVID-19 pandemic, and that diagnosis was suspected/considered upon their initial presentation. Their evaluation, treatment and testing was consistent with current guidelines for patients who present with complaints or symptoms that may be related to COVID-19. Impression & Plan NSTEMI (non-ST elevated myocardial infarction), Dextromethorphan overdose, Elevated troponin Discharge Plan Visit Data Chief Complaint: Anxiety ED Provider: Taz Quiñones Discharge Problem: NSTEMI (non-ST elevated myocardial infarction), Dextromethorphan overdose, Elevated troponin Patient Disposition: Admitted As Inpatient Discharge Instructions Interventions: ED Discharge Assessment Last Done: 12/31/19 13:25 Discharge Problem: Dextromethorphan overdose Qualifiers: Encounter type: initial encounter Injury intent: intentional self-harm Qualified Code(s): T48.3X2A - Poisoning by antitussives, intentional self-harm, initial encounter
[2019-12-31 08:57] LABS: Acetaminophen < 2 ug/ml (10-30); Albumin Level 4.3 gm/dl (3.4-5.0); BUN Creatinine Ratio 5.3 (10-20); Calcium 9.8 mg/dl (8.5-10.1); Creatinine Clr Calc Pharmacy 37.4 ml/min; Est GFR (Non-African American) 31.1; Magnesium 2.2 mg/dl (1.8-2.4); Potassium 2.5 mmol/L (3.5-5.1); Salicylate 3.7 mg/dl (2.8-20)
[2019-12-31] MEDS ORDERED: POTASSIUM CHLORIDE CRTAB 20 MEQ TABCR PO STA (08:57)
[2019-12-31 09:05] LABS: Albumin Globulin Ratio 1.1 (0.9-2); Bilirubin,Total 0.8 mg/dl (0.2-1); Creatine Kinase MB 3.8 ng/ml (0.5-3.6); Globulin 3.9 gm/dl (2.5-4.0); Total Protein 8.2 gm/dl (6.4-8.2); Troponin I 0.088 ng/ml (0-0.045)
[2019-12-31] MEDS: POTASSIUM CHLORIDE / WTR 10 MEQ/100 ML PLCT IV SCH ×2 (09:05→10:07)
[2019-12-31 09:37] LABS: INR 1.1 (0.9-1.1); Partial Thromboplastin Ratio 0.9; Partial Thromboplastin Time 25.2 Seconds (21.0-31.0); Prothrombin Time 11.1 Seconds (9.0-12.0)
--- NOTE | 2019-12-31 10:10 | History & Physical Report ---
Date of Service December 31, 2019 Assessment & Plan (1) Elevated troponin: Elevated troponin EKG changes. Seen by interventional cardiology felt not to be acute coronary syndrome. Will trend troponins get an echocardiogram have him on telemetry and repeat EKGs in the morning most importantly we will repeat his hypokalemia with attention to his magnesium which is in normal range on presentation. Hypokalemia may explain his profound EKG changes. Regarding his hypokalemia however the patient denies having change in diet or diarrhea to explain such profound hypokalemia on presentation. The afternoon the patient troponin elevated to 2.7 I did speak with interventional cardiology. A stat EKG at that time did not show any acute We instituted heparin therapy there were no EKG changes. Dr. Mayfield did imply that if the patient's troponin continues to rise a catheterization could possibly be in the future. The patient did have a negative Covid test on presentation he will be kept n.p.o. after midnight. Patient was started on metoprolol Later in the afternoon approximately 4:[address] Irwin phoned me stating that the patient's echocardiogram showed a possibly dilated aortic root he recommended aortic dissection study. He said he could not confirm any specific dissection or dissection flap but for completeness sake would recommend that we perform the CT angiogram which was ordered stat (2) Depression: Patient called he can helpline stating he was feeling poorly. Patient states he is suffering from anxiety due to changes in his life which occurred in the last year somewhat due to loss of job etc. The patient states that he took Delsym and marijuana to try to chill out reduce his anxiety however the emergency department initially felt this was an intentional act to try to harm himself. Subsequently the patient was brought to our facility have a psychiatric consultation he will need medical clearance likely in 24 hours if the remainder of his cardiac evaluation is unremarkable History of Present Illness Primary Care Provider: NO PCP 34-year-old male who presents after intentional ingestion of Delsym who and nelly quezada initially presented. with marked EKG change There was ST elevation and reciprocal depression however he was seen by interventional cardiology and without other physiological symptoms and time his EKG did improve. was felt possibly secondary to profound hypokalemia. With s His initial troponin was elevated slightly, these improved with repletion of his potassium. Patient does have a psychiatric history although not in an inpatient psychiatric facility for many years. Patient states that stress got to him and he just wanted to chill out for a while that is why he drank the Delsym and smoked marijuana. Because of his EKG changes and troponin the patient will be brought into the medical powers have medical clearance and have a psychiatric evaluation because of this possible intentional self-harm Allergies Allergy/AdvReac Type Severity Reaction Status Date / Time No Known Allergies Allergy Verified 05/06/18 22:53 Home Medications Home Medications Medication Instructions Recorded Confirmed Type No Known Home Medications 05/06/18 12/31/19 History Past Med/Surg History Medical History (Updated 12/31/19 @ 10:31 by Shamar Longo MD) Cocaine abuse Depression Marijuana abuse in remission Surgical History (Updated 11/10/19 @ 13:34 by Quelle [employer] Ny) History of dental surgery No pertinent past surgical history Social History Smoking Status: Current every day smoker Tobacco Type: Cigarettes Cigarettes Per Day: 10; Second Hand Exposure: No; Do You Dip or Chew Tobacco: No; Tobacco Cessation Education Requested by Patient: Yes Hx Alcohol Use: Yes Alcohol type: beer Hx Substance Use: Yes Last Used Substance: Unknown Last Used Substance Other:: Patient believes a year ago Preferred Language: Lithuanian Communication Ability: Effective Student Accounts Coordinator Required: No Beliefs That Will Affect Care: None Current Living Situation: Alone Current Living Situation Comment: Roomate Other Information That Helps Us Care for You: Yes (losing job) Feels Safe at Home: Yes Safety Concerns: Feels Safe At This Time Assistive Devices: Denture - Upper and Denture - Lower Assistive Devices Comment: Upper dentures with patient Review of Systems Review of Systems: Mild distress and fatigue no headache, blurry or double vision no speech or swallowing issues Patient adamantly denies chest pain, pressure or palpitations no shortness of breath, cough or wheezes no abdominal pain, nausea or vomiting, diarrhea or constipation no dysuria, hematuria or frequency no focal joint pain or swelling no back pain, CVA tenderness or radicular pain no bruising, bleeding or rashes no focal signs of weakness or numbness or altered sensation Patient states he mostly has anxiety although he does have a history of depression Physical Exam Physical Exam: The patient appeared well nourished and normally developed. Peers older than stated age Vital signs as documented. Head exam is normocephalic atraumatic no scleral icterus Neck is without JVD, thyromegaly, or carotid bruits. Lungs are clear to auscultation, no focal loss of breath sounds Cardiac exam, Rhythm is regular.. No murmurs, rubs or gallops. Abdominal exam reveals normal bowel sounds, soft non tender, no masses Extremities are nonedematous and both pedal pulses are present Neurologic exam is alert and oriented, no focal loss of strength or sensation Skin is without bruises or rashes Psychologically is withconcerns for anxiety Results & Data Results & Data ([facility]) Vital Signs (Past 12 Hours) Vital Signs Temp Pulse Resp BP Pulse Ox 12/31/19 09:50 87 18 124/82 97 12/31/19 09:45 88 16 129/84 98 12/31/19 09:40 89 17 127/85 97 12/31/19 09:35 88 18 131/80 97 12/31/19 09:30 85 21 132/82 96 12/31/19 09:25 88 22 128/83 99 12/31/19 09:20 88 18 127/79 98 12/31/19 09:15 85 18 128/78 98 12/31/19 09:10 86 17 131/80 99 12/31/19 09:05 98 H 21 130/87 99 12/31/19 09:00 84 24 129/78 98 12/31/19 08:55 79 20 128/82 97 12/31/19 08:50 85 20 128/80 98 12/31/19 08:45 84 16 124/78 97 12/31/19 08:40 85 20 130/76 98 12/31/19 08:35 87 21 123/72 98 12/31/19 08:30 87 24 124/79 98 12/31/19 08:25 138/72 98 12/31/19 08:24 93 H 24 110/80 98 12/31/19 08:20 56 L 25 H 91/81 L 98 12/31/19 07:57 98 12/31/19 07:30 99.3 F 89 18 124/86 98 chest x-ray is unremarkable hyperinflated if anything EKG initially showed sinus rhythm with ST elevation inferiorly with reciprocal ST depression and large voltages. However secondary EKG had resolution of these changes with only minor lateral biphasic T wave changes PG Care Time/CCT Total # of Minutes Spent Total Time Spent with Patient: Total time spent is greater than 50% in coordination of care (as documented) at patient's floor/unit and/or counseling patient: Coding Level of Care Code 98595 Initial Inpt Care Lvl 3 Diagnoses Elevated troponin R77.8 Depression F32.9
[2019-12-31 13:07] LABS: Appearance Urine Clear (Clear); Bilirubin Urine Negative (Negative); Blood Urine Negative (Negative); Color Urine Yellow; Glucose Urine UA Negative (Negative); Ketones Urine Negative (Negative); Leukocyte Esterase Urine Negative (Negative); Nitrite Urine Negative (Negative); Protein Urine Negative (Negative); Urobilinogen Urine Negative (Negative); pH Urine 6.5 (4.5-7.5)
[2019-12-31] MEDS ORDERED: ONDANSETRON INJ 2 MG/ML 2 ML VIAL IV PRN (13:14)
[2019-12-31] MEDS ORDERED: ALUMINUM/MAGNESIUM SUSP 30 ML UDC PO PRN (13:14)
--- NOTE | 2019-12-31 13:23 | Electrocardiogram Report ---
Test Reason : Blood Pressure : / mmHG Vent. Rate : 093 BPM Atrial Rate : 093 BPM P-R Int : 152 ms QRS Dur : 096 ms QT Int : 456 ms P-R-T Axes : 050 048 094 degrees QTc Int : 566 ms Poor data quality, interpretation may be adversely affected Normal sinus rhythm Inferior-posterior infarct (cited on or before 01-APR-2016) T wave abnormality, consider lateral ischemia Prolonged QT ACUTE VT / STEMI Consider right ventricular involvement in acute inferior infarct Abnormal ECG When compared with ECG of 31-DEC-2019 08:08, ACUTE VT / STEMI now present Confirmed by Roman Irwin ([id number]) on 12/31/2019 1:22:44 PM Referred By: ED Confirmed By:Roman Irwin
[2019-12-31 13:27] LABS: Amphetamines+Metham, Urine Neg (Neg); Barbiturates, Urine Neg (Neg); Benzodiazepine, Urine Neg (Neg); Cocaine, Urine Neg (Neg); MDMA (Ecstacy), Urine Neg (Neg); Methadone, Urine Neg (Neg); Opiate, Urine Neg (Neg); Phencyclidine, Urine Neg (Neg)
[2019-12-31] MEDS ORDERED: INFLUENZA VACCINE HIGH DOSE 65+ 0.7 ML SYR IM ONE (14:15)
[2019-12-31] MEDS: LORazepam 0.5 MG TAB PO PRN ×2 (15:09→22:25)
[2019-12-31] MEDS: NSS + 20MEQ KCL 20 MEQ/1,000 ML BAG IV SCH ×2 (15:09→22:25)
[2019-12-31] MEDS ORDERED: METOPROLOL TARTRATE 1 MG/ML VIAL IV PRN (15:20)
[2019-12-31] MEDS ORDERED: cloNIDine HCL 0.1 MG TAB PO PRN (15:22)
[2019-12-31] MEDS ORDERED: Heparin IV BOLUS 0 units in Syringe 0 mL IV ONE (15:45)
[2019-12-31] MEDS: HEPARIN SODIUM/DEXTROSE 25,000 UNITS/500 ML BAG IV SCH (16:04)
--- NOTE | 2019-12-31 16:46 | XCELERA ---
[id number]
--- NOTE | 2019-12-31 16:52 | Electrocardiogram Report ---
Test Reason : Blood Pressure : / mmHG Vent. Rate : 097 BPM Atrial Rate : 097 BPM P-R Int : 140 ms QRS Dur : 096 ms QT Int : 394 ms P-R-T Axes : 053 044 066 degrees QTc Int : 500 ms Normal sinus rhythm Diffuse Nonspecific ST and T wave abnormality Prolonged QT Abnormal ECG When compared with ECG of 31-DEC-2019 08:08, Criteria for Inferior-posterior infarct are no longer Present ST no longer elevated in Inferior leads ST no longer depressed in Anterior leads T wave inversion no longer evident in Anterior leads Confirmed by Roman Irwin ([id number]) on 12/31/2019 4:52:20 PM Referred By: REFERRED SELF Confirmed By:Roman Irwin
[2019-12-31] MEDS ORDERED: INFLUENZA ADMINISTRATION CHARGE ONE (18:00)
[2019-12-31 18:03] LABS: BUN Creatinine Ratio 6.8 (10-20); Calcium 7.8 mg/dl (8.5-10.1); Creatinine Clr Calc Pharmacy 65.4 ml/min; Est GFR (African American) 70.7; Potassium 3.1 mmol/L (3.5-5.1)
--- NOTE | 2019-12-31 18:32 | CT Scan Report ---
CT ANGIOGRAM OF THE CHEST COMBO CLINICAL HISTORY: Aortic root dilatation. Atypical chest pain. COMPARISON STUDY: Chest x-ray dated 12/31/2019. TECHNIQUE: Before and following the IV administration of 116 cc of Optiray 320, CT angiogram of the c hest was performed from the thoracic inlet to the upper abdomen utilizing the dissection protocol. Im ages are reviewed in the axial, sagittal, and coronal planes. 3-D MIPS images are created and assesse d. IV contrast was administered without complication. A dose lowering technique was utilized adherin g to the principles of ALARA. CT DOSE: 842.96 mGy.cm FINDINGS: Thyroid: Imaged portions of the thyroid gland are normal in size and attenuation. Thoracic aorta: No intramural hematoma is seen on the unenhanced series. The aortic root is dilated m easuring up to 4.4 cm in diameter. There is also ectasia of the ascending thoracic aorta which measur es up to 3.8 cm diameter. The remainder of the thoracic aorta is normal in caliber and the arch demon strates 4-vessel variant anatomy. The arch vessels are widely patent. No dissection is seen. Pulmonary vasculature: The pulmonary trunk is normal in caliber. There are no filling defects identif ied in the main, lobar, or segmental pulmonary arteries to suggest pulmonary embolus. Heart: The heart is normal in size and without pericardial effusion. Lungs and pleural spaces: Emphysematous change is noted. The trachea and central airways are clear. T here is no airspace consolidation or pleural effusion. Mediastinum: There is no mediastinal lymphadenopathy. Calcified subcarinal nodes are incidentally not ed. [place]: There are calcified left hilar nodes. No hilar adenopathy is identified. Axillae: There is no axillary lymphadenopathy. Upper abdomen: There is a small hiatal hernia. Calcified granulomas are present in the spleen. Skeletal structures: No lytic or blastic bony lesions are seen. IMPRESSION: 1. There is dilatation of the aortic root and ectasia of the ascending thoracic aorta as above. 2. The remainder of the thoracic aorta is normal in caliber. No dissection is seen. 3. Emphysema. 4. There is no evidence of pulmonary embolus in the main, lobar, or segmental pulmonary arteries. 5. There is no airspace consolidation or pleural effusion. 6. Additional findings as above. ACT 112: Negative or not required by law. Electronically signed by: Donal Shannon M.D. 12/31/2019 6:30 PM
[2019-12-31] MEDS: METOPROLOL TARTRATE 25 MG TAB PO SCH (20:51)
--- NOTE | 2019-12-31 23:15 | Communication Note ---
Date of Service: December 31, 2019 Results a repeat troponin came back at 9.180, up from 2.770 in the afternoon. Stat EKG ordered showing no acute changes. Previous lab work and EKGs and echo from earlier today reviewed. Patient without any complaints, denies any chest pain, shortness of breath, palpitations, syncope or near syncope, edema. Patient is noted to be diaphoretic, however apparently this is unchanged for admission per RN and patient. Patient does note that he feels anxious, which is also unchanged. Interventional cardiology was consulted earlier this afternoon and noted that possible cath going forward if trop continues to elevate. [place] not to be acute coronary syndrome. Patient is already on a heparin drip. We will continue to monitor overnight for any new/changing symptoms. Case was discussed with attending who is in agreement with plan to continue monitoring. Resident Activity Tracking Resident Involvement: Resident Care Provided Care Provided: Adult Hospital Medicine
[2020-01-01 00:56] LABS: Partial Thromboplastin Ratio 1.5
[2020-01-01] MEDS ORDERED: HEPARIN IV BOLUS 3,000 UNITS in SYRINGE 0 ML IV ONE (02:00)
[2020-01-01] MEDS: NSS + 20MEQ KCL 20 MEQ/1,000 ML BAG IV SCH ×3 (05:46→22:23)
[2020-01-01 07:43] LABS: Basophils # (auto) 0.04 K/uL (0-0.2); Basophils % (auto) 0.6 %; Eosinophils # (auto) 0.14 K/uL (0-0.5); Eosinophils % (auto) 2.1 %; Hematocrit (blood only) 39.4 % (42-52); Hemoglobin 13.6 g/dL (14.0-18.0); Immature Granulocytes # (auto) 0.02 K/uL (0.00-0.02); Immature Granulocytes % (auto) 0.3 %; Lymphocytes # (auto) 1.77 K/uL (1.2-3.4); Mean Corpuscular Hemoglobin 31.1 pg (25-34); Mean Corpuscular Hgb Conc 34.5 g/dL (32-36); Monocytes # (auto) 0.58 K/uL (0.11-0.59); Monocytes % (auto) 8.5 %; Neutrophils # (auto) 4.27 K/uL (1.4-6.5); Neutrophils % (auto) 62.5 %; Platelet Count 225 K/uL (130-400); RDW Coefficient of Variation 13.2 % (11.5-14.5); RDW Standard Deviation 43.6 fL (36.4-46.3); Red Blood Count 4.38 M/uL (4.7-6.1); White Blood Count 6.82 K/uL (4.8-10.8)
[2020-01-01 08:07] LABS: Partial Thromboplastin Ratio 2.4
[2020-01-01 08:12] LABS: Partial Thromboplastin Time 66.2 Seconds (21.0-31.0)
[2020-01-01 08:31] LABS: BUN Creatinine Ratio 7.7 (10-20); Calcium 8.2 mg/dl (8.5-10.1); Creatinine Clr Calc Pharmacy 101.6 ml/min; Est GFR (African American) 120.4; Est GFR (Non-African American) 103.9; Magnesium 2.2 mg/dl (1.8-2.4); Potassium 3.2 mmol/L (3.5-5.1)
[2020-01-01 08:53] LABS: Troponin I 9.37 ng/ml (0-0.045)
[2020-01-01] MEDS: METOPROLOL TARTRATE 25 MG TAB PO SCH ×2 (08:54→20:23)
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
--- NOTE | 2020-01-01 08:55 | Electrocardiogram Report ---
Test Reason : Blood Pressure : / mmHG Vent. Rate : 075 BPM Atrial Rate : 075 BPM P-R Int : 154 ms QRS Dur : 102 ms QT Int : 464 ms P-R-T Axes : 032 004 -02 degrees QTc Int : 518 ms Normal sinus rhythm Minimal voltage criteria for LVH, may be normal variant Prolonged QT Abnormal ECG When compared with ECG of 31-DEC-2019 15:02, Nonspecific ST and T wave abnormality no longer present Confirmed by Roman Irwin ([id number]) on 01/01/2020 8:55:41 AM Referred By: REFERRED SELF Confirmed By:Roman Irwin
--- NOTE | 2020-01-01 09:00 | Electrocardiogram Report ---
Test Reason : Blood Pressure : / mmHG Vent. Rate : 078 BPM Atrial Rate : 078 BPM P-R Int : 150 ms QRS Dur : 092 ms QT Int : 466 ms P-R-T Axes : 048 032 042 degrees QTc Int : 531 ms Normal sinus rhythm Prolonged QT Abnormal ECG When compared with ECG of 31-DEC-2019 22:45, No significant change Confirmed by Roman Irwin ([id number]) on 01/01/2020 8:59:32 AM Referred By: REFERRED SELF Confirmed By:Roman Irwin
--- NOTE | 2020-01-01 10:50 | Hospitalist Progress Note ---
Date of Service January 01, 2020 Assessment & Plan (1) NSTEMI (non-ST elevated myocardial infarction): 34 yo M PMHx polysubstance abuse, depression and anxiety admitted for dextromethorphan poisoning and with elevated troponin. NSTEMI: - Patient with troponin trend 0.088 -> 2.77 -> 9.18 overnight. - Started on heparin gtt, aspirin loaded. - Initially with some EKG changes however rapidly resolved with fluids and potassium supplementation. - Catheterization performed this afternoon by Dr Mayfield, which revealed 95% acute mid RCA stenosis, and 70% mid circumflex stenosis. - VAMSHI placed to RCA, with plan for staged PCI mid circumflex later this hospitalization. - Patient was started on DAPT with asa/Plavix, to continue for at least one year. - Started on metoprolol tartrate 25mg BID, lisinopril 5mg daily, atorvastatin 80mg daily. Unintentional dextromethorphan overdose: - On arrival patient was extremely diaphoretic, and it was discovered that he had drunk a bottle of Delsym. - Poison control was consulted. Patient given a normal saline bolus x2 along with Ativan and magnesium for a prolonged QTc. Patient received bicarb for wide QRS. - Patient with QTc 531, QRS 96 this AM following the above interventions. - Continuous cardiac monitoring. Anxiety and Depression, polysubstance abuse: - Extensive history of dextromethorphan abuse, as well as marijuana use. - Denies use of other illicit drugs for several years. Tried cocaine twice per patient. - Psychiatry consulted given overdose, primary recommendation is for substance abuse treatment, and recommend referral to the [facility] for case management and assistance in arranging treatment. - Avoid prescribing medications that are addictive or abusable due to high risk of negative outcomes. - Encourage inpatient rehab for best chance of attaining/maintaining sobriety. - Patient is not medically stable for initiation of SSRI or other psychotropic given prolonged QTC. - Patient is amenable to outpatient resources, but is resistant to inpatient rehabilitation. Code Status: FULL CODE FENGI: Heart Healthy DVT ppx: Dispo: Telemetry for monitoring post-catheterization (2) Dextromethorphan overdose: (3) Depression: (4) Polysubstance abuse: (5) Mood disorder: Admission and Anticipated Discharge Date Admission Date: December 31, 2019 Supervising Physician Co-Signing Physician Notes Resident Physician Supervision Note: I independently interviewed and examined the patient and verified the woods history and physical, reviewed labs and image studies, discussed the case with the resident Dr. Newell and agree with the findings and care plan. Subjective Patient overnight had further elevation in his troponin to ~9. Patient is without chest pain, shortness of breath, dizziness or headache, nausea, abdominal pain at this time. For catheterization this afternoon by Dr. Mayfield. Reports a history of early heart disease in his father who demised from heart attack at the age of 50. Per patient, father had severely uncontrolled DM2 at the time of his . No other family history of heart disease or sudden cardiac to his knowledge. Reports that he has been using dextromethorphan as his abuse drug of choice for several years, but had not used for several months and "the anxiety built up and I just wanted to relax" and so he drank the delsym and smoked marijuana. Emphasizes that he did not intend to harm himself. He requests outpatient rehab and psych/counseling services. Review of Systems Review of Systems: All systems reviewed & are unremarkable except as noted in Subjective Constitutional: no fever, no chills and no malaise Respiratory: no cough and no dyspnea Cardiovascular: no chest pain, no palpitations and no edema Gastrointestinal: no abdominal pain, no constipation and no diarrhea/loose stools Physical Exam Constitutional: well developed and + ill appearing; no acute distress diaphoretic appears older than stated age Eyes: PERRL, conjunctivae normal, anicteric sclerae ENMT: external ear and nose normal, oropharynx normal Neck: normal visual inspection Respiratory: normal respiratory effort, lungs clear to auscultation Cardiovascular: RRR, no murmur, no edema Gastrointestinal (Abdomen): normal bowel sounds, soft, nontender, no hepatosplenomegaly Musculoskeletal: Extremities: no cyanosis and no clubbing Skin: sweating apparent on patient's forehead, face, chest, back Psychiatric: A+Ox3, euthymic affect Results & Data Results & Data ([facility]) Vital Signs (Past 12 Hours) Vital Signs Temp Pulse Pulse Resp BP BP Pulse Ox 01/01/20 10:48 36.7 C 68 18 157/101 H 98 01/01/20 09:00 76 01/01/20 08:08 36.8 C 79 18 138/89 96 01/01/20 03:20 36.8 C 73 18 141/89 H 98 01/01/20 00:04 37.1 C 75 16 143/92 H 98 12/31/19 23:00 77 12/31/19 22:54 85 149/100 H Resident Activity Tracking Resident Involvement: Resident Care Provided Care Provided: Adult [facility] Medicine (1) Dextromethorphan overdose Encounter type: initial encounter Injury intent: accidental or unintentional Qualified Code(s): T48.3X1A - Poisoning by antitussives, accidental (unintentional), initial encounter (2) Depression Active/Remission status: currently active Depression Type: major depressive disorder Major depression episode severity: severe Major depression recurrence: unspecified whether recurrent Psychotic features: without psychotic features Qualified Code(s): F32.2 - Major depressive disorder, single episode, severe without psychotic features
[2020-01-01] MEDS ORDERED: fentaNYL citrate 100 MCG/2 ML VIAL ONE (12:34)
[2020-01-01] MEDS ORDERED: MIDAZOLAM HCL 1 MG/ML 2ML VIAL ONE ×2 (12:34→13:18)
[2020-01-01] MEDS ORDERED: HEPARIN (PORCINE) 1000 UNIT/ML 10 ML (CATH LAB USE ONLY) ONE (12:34)
[2020-01-01] MEDS ORDERED: niCARdipine HCL INJ 2.5 MG/ML 10 ML AMP ONE (12:34)
[2020-01-01] MEDS ORDERED: NITROGLYCERIN/D5W 100MCG/ML 20ML SYR ONE (12:35)
--- NOTE | 2020-01-01 12:58 | Pre Anesthesia Assessment ---
Date of Service January 01, 2020 Pre Sedation Assessment Vital Signs Temp Pulse Pulse Resp BP BP Pulse Ox 01/01/20 10:48 98.1 F 68 18 157/101 H 98 01/01/20 09:00 76 01/01/20 08:08 98.2 F 79 18 138/89 96 01/01/20 03:20 98.2 F 73 18 141/89 H 98 01/01/20 00:04 98.8 F 75 16 143/92 H 98 12/31/19 23:00 77 12/31/19 22:54 85 149/100 H 12/31/19 19:11 98.2 F 92 H 16 163/98 H 97 12/31/19 18:01 98.2 F 104 H 22 170/104 H 170/116 H 97 12/31/19 16:00 107 H 12/31/19 15:34 98.2 F 95 H 16 166/94 H 98 12/31/19 14:27 101 H 12/31/19 14:21 98.1 F 101 H 24 176/94 H 98 12/31/19 13:59 104 H 21 130/99 98 12/31/19 13:25 95 H 21 97 12/31/19 13:14 99 H 20 12/31/19 13:00 90 19 Cardiovascular RRR, no murmur, no edema Respiratory normal respiratory effort, lungs clear to auscultation Pre-Sedation Airway Assessment Smoking Status: Current every day smoker Hx Sleep Apnea: No Hx Difficult Intubation: No Short, Thick Neck: No Thyromental Distance: > or= 3.5 Finger Breadths Mallampati Class: III ASA: ASA3 Procedure Planning Contraindications for Sedation: none Current Medications Reviewed: Yes Notes The planned sedation has been discussed with the patient. Informed Consent was obtained. I have identified the patient, determined the appropriateness of sedation and have assessed the patient immediately prior to the procedure. All medicine(s) and interventions are by my order.
[2020-01-01] MEDS ORDERED: CLOPIDOGREL BISULFATE 300 MG TAB ONE (13:36)
--- NOTE | 2020-01-01 13:45 | Post Anesthesia Assessment ---
Date of Service January 01, 2020 Post Sedation Assessment Vital Signs Temp Pulse Pulse Resp BP BP Pulse Ox 01/01/20 10:48 98.1 F 68 18 157/101 H 98 01/01/20 09:00 76 01/01/20 08:08 98.2 F 79 18 138/89 96 01/01/20 03:20 98.2 F 73 18 141/89 H 98 01/01/20 00:04 98.8 F 75 16 143/92 H 98 12/31/19 23:00 77 12/31/19 22:54 85 149/100 H 12/31/19 19:11 98.2 F 92 H 16 163/98 H 97 12/31/19 18:01 98.2 F 104 H 22 170/104 H 170/116 H 97 12/31/19 16:00 107 H 12/31/19 15:34 98.2 F 95 H 16 166/94 H 98 12/31/19 14:27 101 H 12/31/19 14:21 98.1 F 101 H 24 176/94 H 98 12/31/19 13:59 104 H 21 130/99 98 Recovery Score Activity: Moves 4 extremities Respiration: Deep Breath/Cough Circulation: +/-20% PreAnes Value Consciousness: Arouseable (by name) Oxygen Saturation: O2 needed for >90% Discharge Sedation Level of Care: Fast Track Phase II Post Sedation Plan On clinical assessment, the patient appears to have tolerated the sedation without complications. Patient is recovering as anticipated. Patient will continue to be monitored by nursing and may be discharged when sedation discharge criteria are met per below protocol. Upon Completions of procedure up to 15 minutes continue every 5 minute vital signs and the P.A.R. score; then discharge to a Phase I or Fast Track to Phase II per the following guidelines: * Discharge Patient to appropriate Phase II area if PAR is 8 or greater or return to pre- procedure baseline. The post - procedure orders will be as directed. * If PAR score is less than 8 or not return to pre-procedure baseline then patient will follow Phase I monitoring till PAR is reached for Phase II. The Phase I may be done in procedure room or may call to secure a Phase I area. * If naloxone or flumazenil are used for reversal, hold in Phase I for continued monitoring from when last reversal dose was given for a minimum of 60 minutes or longer pending the nurse and/or physician discretion of patient condition before discharge to Phase II. Please call the Sedation Physician to re-evaluate and complete post-note for discharge to Phase II area. Do NOT discharge from procedure sedation or Phase 1 until post- sedation evaluation note is complete by procedure /sedation MD Sedation Discharge Instructions to be given to the patient at discharge to home.
--- NOTE | 2020-01-01 13:48 | Cardiac Catheterization ---
[facility] Data: [employer] Cardiac Status Clinical evaluation leading to the procedure CAD Presenation: Non STEMI Anginal Classification: CCS IV Heart Failure: No Cardiogenic Shock within 24 Hours: No Cardiac Arrest within 24 Hours: No Imaging Studies Past 6 Months: Yes Stress Studies Past 6 Months: No Diagnostic Physicians Name: Bryce Mayfield MD Status: Elective Closure Device Percutaneous Entry Location: Radial Closure Device: Radial Band Recommendations: PCI without planned CABG PCI Indication: PCI for high risk Non-SAMARA Lesion Segment Name: Mid RCA Culprit Artery: Yes Stenosis Prior to Rx (%): 95 Chronic Total Occlusion: No IVUS: No FFR: No Pre-Procedure TOMMY Flow: 3 Previously Treated Lesion: No Lesion Complexity: Non-High/Non-C Lesion Length (mm): 15 Thrombus Present: Yes Bifurcation Lesion: No Guidewire Across Lesion: Stenosis Post-Procedure (%): 0 Post-Procedure TOMMY Flow: 3 Devices(s) Deployed: Yes Yes Intraprocedure Events Significant Disection: No Perforation: No Cardiac Cath Procedure Full Procedure Date January 01, 2020 Pre-Procedure Diagnosis Pre-Procedure Diagnosis: Non STEMI AUC Score AUC Score: 8 Post-Procedure Diagnosis Post-Procedure Diagnosis: Severe CAD, Successful PCI and Normal Intracardiac Pre ssures Procedure(s) Performed Procedure(s) Performed: Coronary Angiography, Left Heart Cath and Drug Eluting Stent Financial Assistant Bryce Mayfield MD Medical Driver(s) Donnell Estimated Blood Loss Estimated Blood Loss: 15 Medication(s) Medication(s): Clopidogrel, Fentanyl, Heparin, Lidocaine 1%, Nicardipine, Nitroglycerin and Versed Summary of Findings Indication: High risk NSTEMI with transient inferior ST elevations on initial ECG Access: TR band Catheters: Alpine, JL4, JR4 guide Findings: LM -normal caliber, no significant disease LAD -medium caliber, 30% earlymid stenosis at takeoff of the first septal, mid and distal luminal irregularities as wraps around apex. First diagonal with 20 to 30% proximal disease. Circumflex -medium caliber, proximal luminal irregularities, 70% mid stenosis, OM 2 with 40% proximal stenosis. RCA -dominant, high takeoff, large caliber, 40% earlymid RCA stenosis, 95% acute appearing latemid RCA stenosis. Luminal irregularities in the distal segment, PDA, PLB's. LVEDP -18 -- PCI -- Antithrombotic therapy: Heparin, clopidogrel Procedure: RCA cannulated with JR4 guide BMW wire passed across lesion into distal vessel Mid RCA lesion predilated with 3.0 compliant balloon Dilated lesion stented with 4.0 x 22 mm Harshad drug-eluting stent Stent post-dilated with 4.0 noncompliant balloon IC vasodilators administered for spasm Post procedure TOMMY 3 flow, stent well expanded with minimal residual stenosis and no apparent cardiac complications. Arterial Closure: TR band Summary: 1. Severe multivessel coronary artery disease -95% acute mid RCA stenosis 70% mid circumflex 2. Normal intracardiac filling pressure 3. Successful PCI of mid RCA with single drug-eluting stent (4.0 x 22 mm Harshad). Recommendations: To PCU for continued monitoring Loaded with clopidogrel 600 mg in Dining Car Server Continue dual-antiplatelet therapy for at least 1 year Continue statin, and ASCVD risk factor modification Consult cardiac Rehab Plan for staged PCI mid circumflex later this hospitalization. Hemodynamics Rest Ao:: 148/89/117 Final Ao: 136/88/111 LV: 139/18 Recommendations Recommendations: PCI without planned CABG Specimens Specimens: None Radiation Exposure (mGy) 1547 Contrast (mls) 60 Fluids (cc crystalloids) Fluids (cc crystalloids): 90 Drains Drains: None Anesthesia Moderate Procedural Complication(s) None Disposition PCU I attest to the content of the Intraoperative Record and any orders documented therein. Any exceptions are noted below. [facility] Card Cath Procedure Codes Cardiac Catheterization Procedure 1: Cardiovascular Cath Procedures: 35657 Coronaries and LHC (+/-LV) Moderate Sedation Procedure 1: Sedation/Anesthesia: 78444 Mod Sedation by the same physician;Init15 Min Child Age 5 & Up Procedure 2: Sedation/Anesthesia: 82042 Mod Sedation by the same physician; Ea [id number] Minutes Stenting Procedure 1: Cardiovascular Stent Procedures: 88379 Perc transcatheter placement of intracoronary stent(s), with ang PG Care Time/CCT Total # of Minutes Spent Total Time Spent with Patient: Total time spent is greater than 50% in coordination of care (as documented) at patient's floor/unit and/or counseling patient:
[2020-01-01] MEDS: HEPARIN SOD 5,000 UNIT/0.5 ML VIAL SQ SCH (20:23)
[2020-01-01] MEDS: LORazepam 0.5 MG TAB PO PRN (20:27)
[2020-01-02] MEDS: NSS + 20MEQ KCL 20 MEQ/1,000 ML BAG IV SCH (05:39)
[2020-01-02 07:08] LABS: Hematocrit (blood only) 40.6 % (42-52); Hemoglobin 14.5 g/dL (14.0-18.0); Mean Corpuscular Hemoglobin 31.9 pg (25-34); Mean Corpuscular Hgb Conc 35.7 g/dL (32-36); Mean Corpuscular Volume 89.2 fL (80-100); Mean Platelet Volume 10.3 fL (7.4-10.4); Platelet Count 212 K/uL (130-400); RDW Coefficient of Variation 13.3 % (11.5-14.5); RDW Standard Deviation 43.1 fL (36.4-46.3); Red Blood Count 4.55 M/uL (4.7-6.1); White Blood Count 6.03 K/uL (4.8-10.8)
[2020-01-02 07:25] LABS: Partial Thromboplastin Time 26.6 Seconds (21.0-31.0)
[2020-01-02 07:45] LABS: BUN Creatinine Ratio 8.2 (10-20); Calcium 8.5 mg/dl (8.5-10.1); Creatinine Clr Calc Pharmacy 107.3 ml/min; Est GFR (African American) 127.5; Potassium 3.4 mmol/L (3.5-5.1)
[2020-01-02] MEDS ORDERED: LORazepam 0.5 MG TAB PO PRN (07:45)
[2020-01-02] MEDS ORDERED: POTASSIUM CHLORIDE CRTAB 20 MEQ TABCR PO ONE (07:48)
--- NOTE | 2020-01-02 08:11 | Hospitalist Progress Note ---
Date of Service January 02, 2020 Assessment & Plan (1) NSTEMI (non-ST elevated myocardial infarction): 34 yo M PMHx polysubstance abuse, depression and anxiety admitted for dextromethorphan poisoning and with elevated troponin. NSTEMI: - Patient with troponin trend 0.088 -> 2.77 -> 9.18 this admission. - Started on heparin gtt, aspirin loaded. - Initially with some EKG changes however rapidly resolved with fluids and potassium supplementation. - Catheterization performed 01/[address] Mayfield, which revealed 95% acute mid RCA stenosis, and 70% mid circumflex stenosis. - VAMSHI placed to RCA, with plan for staged PCI mid circumflex later this afternoon. - Patient was started on DAPT with asa/Plavix, to continue for at least one year. - Started on metoprolol tartrate 25mg BID, lisinopril 5mg daily, atorvastatin 80mg daily. Unintentional dextromethorphan overdose: - On arrival patient was extremely diaphoretic, and it was discovered that he had drunk a bottle of Delsym. - Poison control was consulted. Patient given a normal saline bolus x2 along with Ativan and magnesium for a prolonged QTc. Patient received bicarb for wide QRS. - Patient with QTc 501, QRS 88 this AM (QTc and QRS improving). - Continuous cardiac monitoring. Anxiety and Depression, polysubstance abuse: - Extensive history of dextromethorphan abuse, as well as marijuana use. - Denies use of other illicit drugs for several years. Tried cocaine twice per patient. - Psychiatry consulted given overdose, primary recommendation is for substance abuse treatment, and recommend referral to the [facility] for case management and assistance in arranging treatment. - Avoid prescribing medications that are addictive or abusable due to high risk of negative outcomes. - Encourage inpatient rehab for best chance of attaining/maintaining sobriety. - Patient is not medically stable for initiation of SSRI or other psychotro pic given prolonged QTC; can consider as patient's QTc continues to improve. - Patient is amenable to outpatient resources, but is resistant to inpatient rehabilitation at this time. Code Status: FULL CODE FENGI: NPO pending 2nd stent placement; then Heart Healthy diet DVT ppx: Heparin SQ BID Dispo: Telemetry for monitoring post-catheterization Admission and Anticipated Discharge Date Admission Date: December 31, 2019 Supervising Physician Co-Signing Physician Notes Resident Physician Supervision Note: I independently interviewed and examined the patient and verified the woods history and physical, reviewed labs and image studies, discussed the case with the resident Dr. Newell and agree with the findings and care plan. Subjective Patient without acute events overnight. This morning is much less diaphoretic and reports feeling less hot. Only complaint this AM is feeling tired. No SOB, chest pain, fevers or chills, nausea, bowel or bladder changes. No dizziness or headache. No agitation, increased anxiety. Review of Systems Review of Systems: All systems reviewed & are unremarkable except as noted in Subjective Constitutional: no fever, no chills and no malaise Respiratory: no cough and no dyspnea Cardiovascular: no chest pain, no palpitations and no edema Gastrointestinal: no abdominal pain, no constipation and no diarrhea/loose stools Physical Exam Constitutional: well developed and well nourished; no acute distress diaphoretic appears older than stated age Eyes: PERRL, conjunctivae normal, anicteric sclerae ENMT: external ear and nose normal, oropharynx normal Neck: normal visual inspection Respiratory: normal respiratory effort, lungs clear to auscultation Cardiovascular: RRR, no murmur, no edema Gastrointestinal (Abdomen): normal bowel sounds, soft, nontender, no hepatosplenomegaly Musculoskeletal: Extremities: no cyanosis and no clubbing Skin: no rashes, warm and dry Neurologic: moves all extremities; no focal motor deficits Speech / Cognition: normal speech Motor/Sensory: no tremor Psychiatric: A+Ox3, euthymic affect Results & Data Results & Data ([facility]) Vital Signs (Past 12 Hours) Vital Signs Temp Pulse Pulse Pulse Resp BP BP 01/02/20 08:01 36.7 C 69 18 161/91 H 01/02/20 04:00 36.5 C 54 L 19 150/94 H 01/01/20 23:59 72 01/01/20 23:30 36.7 C 61 18 149/85 H Pulse Ox 01/02/20 08:01 97 01/02/20 04:00 98 01/01/20 23:59 01/01/20 23:30 98 Resident Activity Tracking Resident Involvement: Resident Care Provided Care Provided: Adult Hospital Medicine
[2020-01-02] MEDS: METOPROLOL TARTRATE 25 MG TAB PO SCH ×2 (08:39→20:48)
[2020-01-02] MEDS: CLOPIDOGREL BISULFATE 75 MG TAB PO SCH (08:39)
[2020-01-02] MEDS: ATORVASTATIN 40 MG TAB PO SCH (08:40)
[2020-01-02] MEDS: HEPARIN SOD 5,000 UNIT/0.5 ML VIAL SQ SCH ×2 (08:40→21:06)
--- NOTE | 2020-01-02 08:49 | Electrocardiogram Report ---
Test Reason : Blood Pressure : / mmHG Vent. Rate : 064 BPM Atrial Rate : 064 BPM P-R Int : 152 ms QRS Dur : 088 ms QT Int : 486 ms P-R-T Axes : 059 025 -17 degrees QTc Int : 501 ms Normal sinus rhythm T wave abnormality, consider inferior ischemia Prolonged QT Abnormal ECG When compared with ECG of 01-JAN-2020 06:54, T wave inversion now evident in Inferior leads T wave amplitude has increased in Anterior leads Confirmed by Roman Irwin ([id number]) on 01/02/2020 8:49:28 AM Referred By: REFERRED SELF Confirmed By:Roman Irwin
[2020-01-02] MEDS ORDERED: lisinopril 5 MG TAB PO SCH (09:00)
[2020-01-02] MEDS ORDERED: HEPARIN (PORCINE) 1000 UNIT/ML 10 ML (CATH LAB USE ONLY) ONE (13:13)
[2020-01-02] MEDS ORDERED: fentaNYL citrate 100 MCG/2 ML VIAL ONE (13:13)
[2020-01-02] MEDS ORDERED: niCARdipine HCL INJ 2.5 MG/ML 10 ML AMP ONE (13:13)
[2020-01-02] MEDS ORDERED: NITROGLYCERIN/D5W 100MCG/ML 20ML SYR ONE (13:14)
[2020-01-02] MEDS ORDERED: MIDAZOLAM HCL 1 MG/ML 2ML VIAL ONE (13:14)
--- NOTE | 2020-01-02 14:21 | Pre Anesthesia Assessment ---
Date of Service January 02, 2020 Pre Sedation Assessment Vital Signs Temp Pulse Pulse Pulse Resp BP BP 01/02/20 12:43 50 L 20 146/100 H 01/02/20 11:56 98.4 F 65 19 159/99 H 01/02/20 08:01 98.1 F 69 18 161/91 H 01/02/20 08:00 64 01/02/20 04:00 97.7 F 54 L 19 150/94 H 01/01/20 23:59 72 01/01/20 23:30 98.1 F 61 18 149/85 H 01/01/20 19:16 98.1 F 76 19 171/97 H 01/01/20 18:29 62 18 151/100 H 01/01/20 17:36 66 18 159/107 H 01/01/20 17:18 76 01/01/20 16:20 63 18 145/93 H 01/01/20 15:50 64 18 154/105 H 01/01/20 15:20 98.1 F 65 18 143/93 H 01/01/20 14:50 64 18 131/84 01/01/20 14:35 65 18 138/89 Pulse Ox 01/02/20 12:43 98 01/02/20 11:56 99 01/02/20 08:01 97 01/02/20 08:00 01/02/20 04:00 98 01/01/20 23:59 01/01/20 23:30 98 01/01/20 19:16 96 01/01/20 18:29 97 01/01/20 17:36 98 01/01/20 17:18 01/01/20 16:20 97 01/01/20 15:50 93 01/01/20 15:20 98 01/01/20 14:50 98 01/01/20 14:35 99 Cardiovascular RRR, no murmur, no edema Respiratory normal respiratory effort, lungs clear to auscultation Pre-Sedation Airway Assessment Smoking Status: Current every day smoker Hx Sleep Apnea: No Hx Difficult Intubation: No Short, Thick Neck: No Thyromental Distance: > or= 3.5 Finger Breadths Oral Cavity: + WNL Mallampati Class: II ASA: ASA2 NPO Status Date of Last Intake of Fluids: 01/02/20 Time of Last Intake of Fluids: 07:00 Date of Last Intake of Solid Food: 01/02/20 Time of Last Intake of Solid Foods: 07:00 Procedure Planning Contraindications for Sedation: none Current Medications Reviewed: Yes Notes The planned sedation has been discussed with the patient. Informed Consent was obtained. I have identified the patient, determined the appropriateness of sedation and have assessed the patient immediately prior to the procedure. All medicine(s) and interventions are by my order.
--- NOTE | 2020-01-02 16:52 | Post Anesthesia Assessment ---
Date of Service January 02, 2020 Post Sedation Assessment Vital Signs Temp Pulse Pulse Pulse Resp BP BP 01/02/20 16:19 55 L 19 146/52 H 01/02/20 15:50 66 19 136/90 01/02/20 15:35 64 64 19 129/82 01/02/20 12:43 50 L 20 146/100 H 01/02/20 11:56 98.4 F 65 19 159/99 H 01/02/20 08:01 98.1 F 69 18 161/91 H 01/02/20 08:00 64 01/02/20 04:00 97.7 F 54 L 19 150/94 H 01/01/20 23:59 72 01/01/20 23:30 98.1 F 61 18 149/85 H 01/01/20 19:16 98.1 F 76 19 171/97 H 01/01/20 18:29 62 18 151/100 H 01/01/20 17:36 66 18 159/107 H 01/01/20 17:18 76 Pulse Ox 01/02/20 16:19 98 01/02/20 15:50 98 01/02/20 15:35 97 01/02/20 12:43 98 01/02/20 11:56 99 01/02/20 08:01 97 01/02/20 08:00 01/02/20 04:00 98 01/01/20 23:59 01/01/20 23:30 98 01/01/20 19:16 96 01/01/20 18:29 97 01/01/20 17:36 98 01/01/20 17:18 Recovery Score Activity: Moves 4 extremities Respiration: Deep Breath/Cough Circulation: +/-20% PreAnes Value Consciousness: Arouseable (by name) Oxygen Saturation: O2 needed for >90% Discharge Sedation Level of Care: Fast Track Phase II Post Sedation Plan On clinical assessment, the patient appears to have tolerated the sedation without complications. Patient is recovering as anticipated. Patient will continue to be monitored by nursing and may be discharged when sedation discharge criteria are met per below protocol. Upon Completions of procedure up to 15 minutes continue every 5 minute vital signs and the P.A.R. score; then discharge to a Phase I or Fast Track to Phase II per the following guidelines: * Discharge Patient to appropriate Phase II area if PAR is 8 or greater or return to pre- procedure baseline. The post - procedure orders will be as directed. * If PAR score is less than 8 or not return to pre-procedure baseline then patient will follow Phase I monitoring till PAR is reached for Phase II. The Phase I may be done in procedure room or may call to secure a Phase I area. * If naloxone or flumazenil are used for reversal, hold in Phase I for continued monitoring from when last reversal dose was given for a minimum of 60 minutes or longer pending the nurse and/or physician discretion of patient condition before discharge to Phase II. Please call the Sedation Physician to re-evaluate and complete post-note for discharge to Phase II area. Do NOT discharge from procedure sedation or Phase 1 until post- sedation evaluation note is complete by procedure /sedation MD Sedation Discharge Instructions to be given to the patient at discharge to home.
--- NOTE | 2020-01-02 17:00 | Cardiac Catheterization ---
[facility] Data: Inspector Plumbing Cardiac Status Clinical evaluation leading to the procedure CAD Presenation: Non STEMI Anginal Classification: CCS IV Heart Failure: No Cardiogenic Shock within 24 Hours: No Cardiac Arrest within 24 Hours: No Imaging Studies Past 6 Months: Yes Stress Studies Past 6 Months: No Diagnostic Physicians Name: Bryce Mayfield MD Status: Elective Closure Device Percutaneous Entry Location: Radial Closure Device: Radial Band Recommendations: PCI without planned CABG PCI Indication: Staged PCI Lesion Segment Name: Mid circumflex Culprit Artery: No Stenosis Prior to Rx (%): 70 Chronic Total Occlusion: No IVUS: No FFR: No Pre-Procedure TOMMY Flow: 3 Previously Treated Lesion: No Lesion Complexity: Non-High/Non-C Lesion Length (mm): 20 Thrombus Present: No Bifurcation Lesion: No Guidewire Across Lesion: Stenosis Post-Procedure (%): 0 Post-Procedure TOMMY Flow: 3 Devices(s) Deployed: Yes Yes Intraprocedure Events Significant Disection: No Perforation: No Cardiac Cath Procedure Full Procedure Date January 02, 2020 Pre-Procedure Diagnosis Pre-Procedure Diagnosis: Non STEMI AUC Score AUC Score: 7 Post-Procedure Diagnosis Post-Procedure Diagnosis: Severe CAD and Successful PCI Procedure(s) Performed Procedure(s) Performed: Coronary Angiography and Drug Eluting Stent Route Salesman And Driver Bryce Mayfield MD Tools And Parts Attendant(s) Dnonell Estimated Blood Loss Estimated Blood Loss: 15 Medication(s) Medication(s): Clopidogrel, Fentanyl, Heparin, Lidocaine 1%, Nicardipine, Nitroglycerin and Versed Summary of Findings Indication: Staged PCI of severe circumflex disease Post PCI with VAMSHI to RCA yesterday in the setting of high risk NSTEMI with transient inferior ST elevations. Access: TR band Catheters: EBU 3.5 guide Findings: For details of patient's coronary angiography please see cath report dictated from 01/01/2020. Briefly patient found to have a 95% acute mid RCA stenosis which was treated with a single VAMSHI. Also noted to have a 70% mid circumflex stenosis. -- PCI -- Antithrombotic therapy: Heparin, clopidogrel Procedure: Left main cannulated with EBU 3.5 guide Prowater wire passed across lesion into distal vessel Mid circumflex lesion predilated with 2.5 balloon With the aid of a guideliner dilated lesion stented with 2.5 x 26 mm Harshad VAMSHI Post stenting severe residual disease distal to stent likely secondary to edge dissection Second VAMSHI (2.25 x 15 mm Heiskell) placed into OM 2 overlapping distal aspect of initial stent Stents post-dilated with 2.5 noncompliant balloon IC vasodilators administered for spasm Post procedure TOMMY 3 flow, stents well expanded with minimal residual stenosis and no apparent cardiac complications. Arterial Closure: TR band Summary: 1. Successful PCI of mid circumflex into OM with 2 overlapping drug-eluting stents (2.5 x 26 mm, 2.25 x 15 mm Heiskell). Recommendations: Continue dual-antiplatelet therapy for at least 1 year Continue statin, and ASCVD risk factor modification Consult cardiac Rehab Hemodynamics Rest Ao:: 164/88/119 Final Ao: 125/80/94 LV: -- Recommendations Recommendations: PCI without planned CABG Specimens Specimens: None Radiation Exposure (mGy) 3149 Contrast (mls) 140 Fluids (cc crystalloids) Fluids (cc crystalloids): 95 Drains Drains: None Anesthesia Moderate Procedural Complication(s) None Disposition PCU I attest to the content of the Intraoperative Record and any orders documented therein. Any exceptions are noted below. [facility] Card Cath Procedure Codes Moderate Sedation Procedure 1: Sedation/Anesthesia: 76440 Mod Sedation by the same physician;Init15 Min Child Age 5 & Up Procedure 2: Sedation/Anesthesia: 87308 Mod Sedation by the same physician; Ea [id number] Minutes Stenting Procedure 1: Cardiovascular Stent Procedures: 47352 Perc transcatheter placement of intracoronary stent(s), with ang PG Care Time/CCT Total # of Minutes Spent Total Time Spent with Patient: Total time spent is greater than 50% in coordina tion of care (as documented) at patient's floor/unit and/or counseling patient:
[2020-01-02] MEDS ORDERED: ASPIRIN 325 MG ECTAB PO ONE (17:30)
[2020-01-02] MEDS: HEPARIN SODIUM/DEXTROSE 25,000 UNITS/500 ML BAG IV SCH (19:14)
[2020-01-02 19:31] LABS: Marijuana Quant, GCMS Urine 551 ng/mL (<5)
[2020-01-03 06:27] LABS: Basophils # (auto) 0.02 K/uL (0-0.2); Basophils % (auto) 0.3 %; Eosinophils # (auto) 0.12 K/uL (0-0.5); Eosinophils % (auto) 1.8 %; Hemoglobin 13.9 g/dL (14.0-18.0); Immature Granulocytes # (auto) 0.01 K/uL (0.00-0.02); Immature Granulocytes % (auto) 0.2 %; Lymphocytes # (auto) 1.26 K/uL (1.2-3.4); Lymphocytes % (auto) 18.9 %; Mean Corpuscular Hemoglobin 31.6 pg (25-34); Mean Corpuscular Hgb Conc 35.6 g/dL (32-36); Mean Corpuscular Volume 88.6 fL (80-100); Mean Platelet Volume 9.9 fL (7.4-10.4); Monocytes # (auto) 0.54 K/uL (0.11-0.59); Monocytes % (auto) 8.1 %; Neutrophils # (auto) 4.71 K/uL (1.4-6.5); Neutrophils % (auto) 70.7 %; Platelet Count 189 K/uL (130-400); RDW Coefficient of Variation 13.3 % (11.5-14.5); RDW Standard Deviation 43.1 fL (36.4-46.3); White Blood Count 6.66 K/uL (4.8-10.8)
[2020-01-03 06:56] LABS: BUN Creatinine Ratio 14.2 (10-20); Calcium 8.6 mg/dl (8.5-10.1); Creatinine Clr Calc Pharmacy 113.7 ml/min; Est GFR (African American) 130.6; Est GFR (Non-African American) 112.6; Potassium 3.4 mmol/L (3.5-5.1)
[2020-01-03] MEDS ORDERED: lisinopril 10 MG TAB PO SCH (09:00)
[2020-01-03] MEDS ORDERED: ASPIRIN 81 MG ECTAB PO SCH (09:00)
[2020-01-03] MEDS: METOPROLOL TARTRATE 25 MG TAB PO SCH (09:27)
[2020-01-03] MEDS: ATORVASTATIN 40 MG TAB PO SCH (09:27)
[2020-01-03] MEDS: HEPARIN SOD 5,000 UNIT/0.5 ML VIAL SQ SCH (09:27)
[2020-01-03] MEDS: CLOPIDOGREL BISULFATE 75 MG TAB PO SCH (09:27)
[2020-01-03] MEDS ORDERED: CLOPIDOGREL BISULFATE 75MG Homepack PO SCH (10:39)
--- NOTE | 2020-01-03 10:40 | Discharge Summary ---
Date of Service January 03, 2020 Admission HPI Per Admitting Provider 34-year-old male who presents after intentional ingestion of Delsym who and marijuana initially presented. with marked EKG change There was ST elevation and reciprocal depression however he was seen by interventional cardiology and without other physiological symptoms and time his EKG did improve. was felt possibly secondary to profound hypokalemia. With s His initial troponin was elevated slightly, these improved with repletion of his potassium. Patient does have a psychiatric history although not in an inpatient psychiatric facility for many years. Patient states that stress got to him and he just wanted to chill out for a while that is why he drank the Delsym and smoked marijuana. Because of his EKG changes and troponin the patient will be brought into the medical powers have medical clearance and have a psychiatric evaluation because of this possible intentional self-harm Admission Exam Per Admitting Provider The patient appeared well nourished and normally developed. Peers older than stated age Vital signs as documented. Head exam is normocephalic atraumatic no scleral icterus Neck is without JVD, thyromegaly, or carotid bruits. Lungs are clear to auscultation, no focal loss of breath sounds Cardiac exam, Rhythm is regular.. No murmurs, rubs or gallops. Abdominal exam reveals normal bowel sounds, soft non tender, no masses Extremities are nonedematous and both pedal pulses are present Neurologic exam is alert and oriented, no focal loss of strength or sensation Skin is without bruises or rashes Psychologically is withconcerns for anxiety Principal Diagnosis NSTEMI Discharge Exam Constitutional WD/WN, vitals as above cooperative Eyes + anicteric sclerae ENMT external ear and nose normal, oropharynx normal Neck normal visual inspection Respiratory normal respiratory effort, lungs clear to auscultation Auscultation: no crackles, no rales and no wheezes Cardiovascular RRR, no murmur, no edema Heart Sounds: normal S1 and normal S2 Extremities: no pedal edema Gastrointestinal (Abdomen) normal bowel sounds, soft, nontender, no hepatosplenomegaly Musculoskeletal Extremities: extremities normal to inspection Skin no rashes, warm and dry Psychiatric A+Ox3, euthymic affect Discharge Data Allergies Allergy/AdvReac Type Severity Reaction Status Date / Time No Known Allergies Allergy Verified 05/06/18 22:53 Consultations 12/31/19 09:17 ED Decision to Admit Stat 12/31/19 13:14 Consult Psychiatry Routine 12/31/19 15:23 Consult Cardiology Routine 01/01/20 16:42 Consult Cardiac Rehabilitation Routine Procedures Performed Operation Date: 12/31/19 08:15 <No data on this case meets the specified criteria> Operation Date: 01/01/20 12:00 Actual Procedures p Cath, Left with Cors and Vent - Rivera Mayfield MD s Drug Eluting Stent SGl Vessel - Rivera Mayfield MD s Cineradiography w/Routine Exam - Rivera Mayfield MD Operation Date: 01/02/20 13:00 Actual Procedures p Drug Eluting Stent SGl Vessel - Rivera Mayfield MD p Cath, Coronaries ONLY (no LV) - Rivera Mayfield MD s Cineradiography w/Routine Exam - Rivera Mayfield MD Ordered Studies 12/31/19 08:15 CL Cath Imgs for PACS use only Stat 12/31/19 16:44 CT angio chest dissec wo/w con Stat 01/01/20 09:52 CL Cath Imgs for PACS use only Routine 01/02/20 11:38 CL Cath Imgs for PACS use only Routine Hospital Course (1) NSTEMI (non-ST elevated myocardial infarction): 34 yo M PMHx polysubstance abuse, admitted for dextromethorphan poisoning, found to have elevated troponin with ST segment changes consistent with a NSTEMI. Premature Acute Coronary Syndrome - NSTEMI: - troponin peaked at 9.18; started on heparin drip and loaded with aspirin - initially with some EKG changes (ST segment depression in lateral leads, ST depression in inferior leads) however rapidly resolved with fluids and potassium supplementation - TTE showing LV EF of 40-45%, mild -moderate global hypokinesis of LV - presentation consistent with NSTEMI - Catheterization performed 01/[address]field, which revealed 95% acute mid RCA stenosis, and 70% mid circumflex stenosis. - 1 VAMSHI placed to RCA on 12/31 - 2 overlapping VAMSHI placed in left circumflex on 01/01 - Patient was started on DAPT with asa/Plavix, to continue for at least one year after discharge - Started on metoprolol tartrate 25mg BID, lisinopril 10mg daily, atorvastatin 80mg daily. - risk factors for premature ACS include father with sudden cardiac at age of 50 - patient referred to cardiac rehab upon discharge Unintentional dextromethorphan overdose: - On arrival patient was extremely diaphoretic, and it was discovered that he had drunk a bottle of Delsym. - Poison control was consulted. Patient given a normal saline bolus x2 along with Ativan and magnesium supplement for a prolonged QTc. Patient received bicarb for wide QRS. - QTc interval > 500ms during hospital, however improved to 401 ms on day of discharge. - QRS interval narrowed to 84 ms by the time of discharge Anxiety and Depression, polysubstance abuse: - Extensive history of dextromethorphan abuse, as well as marijuana use. - Denies use of other illicit drugs for several years. - Psychiatry consulted given overdose, primary recommendation is for inpatient substance abuse treatment - Patient is amenable to outpatient resources, but is resistant to inpatient rehabilitation at this time. Referral placed to [facility] counseling and [facility] - Patient was started on Wellbutrin sustained release, 150mg, while in the hospital. Directed to increase dose to 300mg after first 3 days. Outpatient items to do: Please avoid prescribing medications that are addictive or abusable due to high risk of negative outcomes. Total Time Total Time Spent Total Time Spent (In Minutes): see attending attestation Discharge Plan Discharge Items Patient Disposition: Home - Self-Care Reason For Visit: MHE Discharge Diagnosis: NSTEMI Activity: Resume your previous activity Non-emergency contact: Primary Care Provider and Co Op Call non-emergency contact if: you have any medication questions Follow-up/Referrals: PCP,NO [Primary Care Provider] - Diet: Heart Healthy Addtl Attending Provider Instructions: You were evaluated at [facility] after consuming an entire bottle of Delysm cough syrup. While in the hospital, you were found to be expe riencing signs of a heart attack. Interventional Cardiology was consulted, who performed a catheterization procedure, in order to assess the coronary arteries, which are small arteries that transport blood to the heart muscle. You were found to have significant blockages in two of coronaries. the blockages are from a build up of plaque, which is from cholesterol, or fats floating in the blood stream. A total of three stents were placed in your coronaries to keep them propped open. You were started on a new medication regimen while in the hospital. It is essential you take the following medications as directed: Atorvastatin 40mg, daily. Aspirin 81mg, daily. Plavix, 75mg, daily. Metoprolol 25mg, twice daily. Lisinopril, 10mg, daily. Although this may seem like a lot of new medications, they work together to help reduce your risk of a recurrent heart attack. The atorvastatin is a high-intensity cholesterol lowering medication. This will help prevent future plaque formation and stabilize plaque that have already formed. The Aspirin and Plavix are both antiplatelet agents - they are essential to prevent blood clot formation around your newly placed stents. You will need to be on both of these for at least 1 year. Metoprolol and lisinopril are blood pressure medications. This combination of medications has been found to effectively prevent elevated blood pressures after a heart attack. The higher your blood pressure, the harder your heart must work. We recommend you follow a heart healthy diet upon discharge and participate in cardiac rehab. Please follow up with your eviscerator, Dr. Mayfield, as directed by his office. Please follow up with your primary care doctor within 1 week of discharge. As for your consumption of Delsym, this impacted the conduction system in your heart, which can be thought of as the electrical circuits in your heart. Thankfully, your cardiac conduction returned to normal by the time of discharge. Psychiatry was consulted and recommend you attend inpatient substance abuse rehab, however you preferred not to do so. Instead, you agreed to attend outpatient substance abuse counseling services at [facility]. We also started you on Wellbutrin, 150mg, once daily for the first 3 days. After 3 days, you may increase to 150mg, twice daily. Pending Studies at Discharge: No Stand-Alone Forms: [facility] Smoking Cessation, Suicide Prevention Resources Medications and DC Order Prescriptions: New atorvastatin 40 mg Tablet 80 mg PO QAM Qty: 30 RF: 0 clopidogrel 75 mg Tablet 75 mg PO QAM 30 Days Qty: 30 RF: 0 aspirin 81 mg Tablet,Delayed Release (Dr/Ec) 81 mg PO QAM 30 Days Qty: 30 RF: 0 lisinopril 10 mg Tablet 10 mg PO QAM 30 Days Qty: 30 RF: 0 metoprolol tartrate 25 mg Tablet 25 mg PO BID 30 Days Qty: 60 RF: 0 bupropion HCl [Wellbutrin SR] 150 mg tablet sustained-release 12 hr 150 mg PO BID 30 Days Qty: 60 RF: 0 No Action No Known Home Medications RF: 0 Discharge Orders: Discharge Order (Routine); Ordered 01/03/20 Ordered By: Gloria Aly/Other Patient Handouts: Cardiac Rehab Getting Started, Heart Attack: Leaving the Hospital Admission Data Admit Date/Time: 12/31/19 10:10 Attending Provider: Lisa Loza Admit Provider: Shamar Longo Primary Care Provider: PCP,OCTAVIA Other Providers: Kaila Cavazos ; Ruby Bonilla ; Rivera Mayfield ; Shamar Longo Other Interventions: PSY Interdisciplinary Discharge Planning Last Done: 01/01/20 14:23 Discharge Summary Assessment (RN) Last Done: 01/03/20 13:42 Supervising Physician Co-Signing Physician Notes Resident Physician Supervision Note: I independently interviewed and examined the patient and verified the woods history and physical, reviewed labs and image studies, discussed the case with the resident Dr. Deleon and agree with the findings and care plan. Resident Activity Tracking Resident Involvement: Resident Care Provided Care Provided: Adult Hospital Medicine
--- NOTE | 2020-01-03 12:31 | Cardiology Progress Note ---
Date of Service January 03, 2020 Assessment & Plan (1) NSTEMI (non-ST elevated myocardial infarction): 2. Multivessel coronary artery diseasepost PCI to mid RCA, mid circumflex into OM 3. Ischemic cardiomyopathyEF 40 to 45% 4. Dilated aortic root/ascending aorta4.5 cm 5. Moderate aortic insufficiency 6. Anxiety/depression/polysubstance abuse Patient stable post staged PCI yesterday for severe OM disease. No recurrent chest pain. No access site complications. Well-perfused with no congestion on exam Renal function, hemoglobin stable. From a cardiac standpoint okay for discharge today Home on GDMT for ischemic heart disease/cardiomyopathy Continue DAPT with aspirin, clopidogrel Continue metoprolol, lisinopril Continue high intensity statin Intermittent surveillance imaging for newly diagnosed dilated ascending aorta and moderate AI Follow-up with cardiology in 2 weeks. Admission and Anticipated Discharge Date Admission Date: December 31, 2019 Subjective No new issues overnight. Denies chest pain or significant shortness of breath. No significant right radial artery access site. Telemetry reviewedno events Review of Systems Review of Systems: All systems reviewed & are unremarkable except as noted in HPI & below Physical Exam Physical Exam: General: Comfortable, no acute distress HEENT: Sclerae anicteric, mucous membranes moist Lungs: Clear to auscultation bilaterally Cardiac: Regular rate and rhythm, diastolic aortic murmur Abdomen: Soft, nontender, nondistended, positive bowel sounds. Extremities: Warm, well perfused, no edema. Right radial artery access site with no ecchymosis, hematoma. Distal pulse and sensation intact. Skin: No rashes or lesions. Neuro: Nonfocal Psych: Alert orient x3, normal affect and mood Results & Data ([facility]) Vital Signs (Past 12 Hours) Vital Signs Temp Pulse Pulse Resp BP Pulse Ox 01/03/20 08:00 98.2 F 76 18 152/90 H 98 01/03/20 03:43 97.9 F 53 L 17 145/93 H 98 PG Care Time/CCT Total # of Minutes Spent Total Time Spent with Patient: Total time spent is greater than 50% in coordination of care (as documented) at patient's floor/unit and/or counseling patient: Coding Level of Care Code 77602 Subseq Hosp Care Lvl 3 Diagnoses NSTEMI (non-ST elevated myocardial infarction) I21.4
--- NOTE | 2020-01-03 12:42 | Cardiology Consultation ---
Date of Consultation January 03, 2020 Assessment & Plan (1) NSTEMI (non-ST elevated myocardial infarction): 2. Transient inferior ST elevations on ECG, prolonged QTC 3. CardiomyopathyEF 40 to 45% 4. Dilated aortic root/ascending aorta4.5 cm 5. Moderate aortic insufficiency 6. Anxiety/depression/polysubstance abuse Although patient has never had actual chest pain, did present diaphoretic with concerning initial EKG, significant troponin elevation newly recognized LV dysfunction on echocardiogram. Recommend further assessment with cardiac catheterization. Discussed procedure with patient including risk, benefits and is willing to proceed. Procedure to be performed via right radial artery. Further recommendations pending findings. History of Present Illness Attending Physician: Lisa Loza MD History of Present Illness Mr. Garcia is a 34-year-old man seen by cardiology in the setting of NSTEMI. No prior cardiac issues. He has longstanding anxiety/depression and polysubstance abuse issues. He presented to [facility] with increased anxiety and after excess Delsym cough syrup ingestion. On presentation he was diaphoretic, ill-appearing and initial EKG showed inferior ST elevations. He was chest pain- free. A heart alert was activated. Emergent catheterization was deferred after ST segments resolved with fluids, Ativan. Admitted for further observation and troponin trended up to 9.3. Echocardiogram showed mild global LV dysfunction, EF 40 to 45%. Also noted to have a dilated aortic root/ascending aorta up to 4.5 cm with moderate aortic insufficiency. CTA negative for dissection. Patient has remained chest pain-free. Allergies Allergy/AdvReac Type Severity Reaction Status Date / Time No Known Allergies Allergy Verified 05/06/18 22:53 Home Medications Home Medications Medication Instructions Recorded Confirmed Type No Known Home Medications 05/06/18 12/31/19 History aspirin 81 mg PO QAM 30 Days #30 tab 01/03/20 Rx atorvastatin 80 mg PO QAM #30 tab 01/03/20 Rx clopidogrel 75 mg PO QAM 30 Days #30 tab 01/03/20 Rx lisinopril 10 mg PO QAM 30 Days #30 tab 01/03/20 Rx metoprolol tartrate 25 mg PO BID 30 Days #60 tab 01/03/20 Rx Patient History Medical History Cocaine abuse Depression Marijuana abuse in remission Surgical History History of dental surgery No pertinent past surgical history Social History Smoking Status: Current every day smoker Tobacco Type: Cigarettes Cigarettes Per Day: 10; Second Hand Exposure: No; Do You Dip or Chew Tobacco: No; Tobacco Cessation Education Requested by Patient: Yes Hx Alcohol Use: Yes Alcohol type: beer Hx Substance Use: Yes Last Used Substance: Unknown Last Used Substance Other:: Patient believes a year ago Preferred Language: Romansh Communication Ability: Effective Real Estate Administrator Required: No Beliefs That Will Affect Care: None Current Living Situation: Alone Current Living Situation Comment: Roomate 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 Extremities: Warm, well perfused, no edema. 2+ radial pulses Skin: No rashes or lesions. Neuro: Nonfocal Psych: Alert orient x3, normal affect and mood Results & Data ([facility]) Vital Signs (Past 12 Hours) Vital Signs Temp Pulse Pulse Resp BP Pulse Ox 01/03/20 08:00 98.2 F 76 18 152/90 H 98 01/03/20 03:43 97.9 F 53 L 17 145/93 H 98 PG Care Time/CCT Total # of Minutes Spent Total Time Spent with Patient: Total time spent is greater than 50% in coordination of care (as documented) at patient's floor/unit and/or counseling patient: Coding Level of Care Code 30811 Inpt Consult Level 4 Diagnoses NSTEMI (non-ST elevated myocardial infarction) I21.4
[2020-01-03] MEDS ORDERED: buPROPion SR 100 MG TABCR PO SCH (13:00)
[2020-01-03] MEDS ORDERED: CLOPIDOGREL BISULFATE 75 MG TAB PO SCH (13:45)
--- NOTE | 2020-01-04 21:52 | Electrocardiogram Report ---
Test Reason : Blood Pressure : / mmHG Vent. Rate : 050 BPM Atrial Rate : 050 BPM P-R Int : 152 ms QRS Dur : 084 ms QT Int : 466 ms P-R-T Axes : 074 044 -30 degrees QTc Int : 424 ms Sinus bradycardia with Premature supraventricular complexes Minimal voltage criteria for LVH, may be normal variant Nonspecific T wave abnormality Abnormal ECG When compared with ECG of 02-JAN-2020 06:44, Premature supraventricular complexes are now Present QT has shortened Confirmed by Diego Johnson ([id number]) on 01/04/2020 9:52:05 PM Referred By: REFERRED SELF Confirmed By:Diego Johnson
== END 2020-01-03 15:14 | disposition home or self-care (01) | DRG 981 ==
LOC: ED 07:35 → EDINP 10:10 → SUATTDRO 10:10 → 2S 13:25
PROC: CLB.CCO (2020-01-02 13:00)

== ENCOUNTER 2020-11-28 16:59 | Observation (INO) ==
[2020-11-28] MEDS ORDERED: LORazepam 1 MG/2 ML VIAL IV STA (17:46)
--- NOTE | 2020-11-28 17:50 | Emergency Department Note ---
History of Present Illness General Chief complaint: Overdose (Intentional) Stated complaint: OVERDOSE Time Seen by Provider: 11/28/20 17:36 Source: patient Limitations: altered mental status History of Present Illness Provider complaint: Dextromethorphan overdose Onset (ago): unknown Location: mouth Pain Consistency: + constant Quality: + other (Confused) Relieved By: + none Associated symptoms: no chest pain, no cough, no fever/chills, no headaches, no nausea/vomiting or no shortness of breath OverdoseThis is a 35-year-old male with a history of dextromethorphan abuse presenting after a intentional dextromethorphan. He took 3 bottles of plain dextromethorphan. He does not know what time he took done. He states he took it all at once. He states that this was not a suicide attempt and he uses dextromethorphan frequently. He denies any symptoms and states he feels fine. He does not know who called the ambulance. He denies headache, vomiting, chest pain, shortness of breath, abdominal pain, diarrhea or urinary symptoms. He has had no cough or cold symptoms. Home Medications Medication Instructions Recorded Confirmed Type No Known Home Medications 05/06/18 12/31/19 History atorvastatin 40 mg tablet 80 mg PO QAM #30 tab 01/03/20 Rx Allergies Allergy/AdvReac Type Severity Reaction Status Date / Time No Known Allergies Allergy Verified 05/06/18 22:53 Past Med/Surg History Medical History (Updated 11/29/20 @ 00:41 by Shamar White MD) Cocaine abuse Depression Marijuana abuse in remission Surgical History History of dental surgery No pertinent past surgical history Social History Smoking Status: Current every day smoker Tobacco Type: Cigarettes Cigarettes Per Day: 10; Second Hand Exposure: No; Hx Alcohol Use: Yes Alcohol type: beer Hx Substance Use: Yes Last Used Substance: Unknown Last Used Substance Other:: Patient believes a year ago Preferred Language: [place] Communication Ability: Effective 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 and A total of 10 systems reviewed and were otherwise negative Physical Exam Vital Signs Vital Signs - 24 hr 11/28/20 17:05 11/28/20 17:36 11/28/20 18:02 Temperature 37.1 C Temperature Source Oral Pulse Rate 124 H Pulse Rate [Radial] 110 H Respiratory Rate 16 16 Blood Pressure 177/111 H Blood Pressure [Left Arm] 161/107 H Blood Pressure Mean 133 Blood Pressure Mean [Left Arm] 125 Pulse Oximetry 94 96 97 Oxygen Delivery Method Room Air Room Air Room Air Sepsis Recent Fever Within 48 Hours No Sepsis New/Unexplained Change in Mental Status No Sepsis Action Taken by Nursing No Action Required 11/28/20 18:48 11/28/20 19:22 11/28/20 21:03 Temperature Temperature Source Pulse Rate 104 H Pulse Rate [Radial] 108 H 92 H Respiratory Rate 16 16 16 Blood Pressure Blood Pressure [Left Arm] 175/109 H 162/104 H Blood Pressure Mean Blood Pressure Mean [Left Arm] 131 123 Pulse Oximetry 97 98 98 Oxygen Delivery Method Room Air Room Air Sepsis Recent Fever Within 48 Hours Sepsis New/Unexplained Change in Mental Status Sepsis Action Taken by Nursing 11/28/20 22:53 11/29/20 00:56 Temperature Temperature Source Pulse Rate Pulse Rate [Radial] 119 H 103 H Respiratory Rate 16 16 Blood Pressure Blood Pressure [Left Arm] 180/126 H 151/109 H Blood Pressure Mean Blood Pressure Mean [Left Arm] 144 123 Pulse Oximetry 98 99 Oxygen Delivery Method Room Air Room Air Sepsis Recent Fever Within 48 Hours Sepsis New/Unexplained Change in Mental Status Sepsis Action Taken by Nursing Constitutional: Vital signs reviewed. Sweating and pale. Eyes: Pupils are equal round reactive to light. Conjunctiva are noninjected. ENT: Pharynx is clear without erythema or exudate. Mucous membranes are moist. Neck supple without meningeal signs. Respiratory: Clear to auscultation bilaterally. Breath sounds are equal bilaterally. Cardiovascular: Tachycardic. Heart rate 120. GI: Soft, nondistended and nontender. Bowel sounds are present. Musculoskeletal: No peripheral edema. No lower extremity tenderness. Integumentary: No cyanosis. or jaundice. Neurological: The patient is awake and alert. He moves all extremities. He a ppears confused. Does answer most questions. Psychiatric: Unable to assess Course Administered Medications Discontinued Medications Lorazepam (Ativan) 1 mg in 2 mls @ 2 mls/min IV NOW STA Stop: 11/28/20 17:47 Last Admin: 11/28/20 17:51 Dose: 2 mls/min Documented by: [id number] Medical Decision Making Differential Diagnosis Overdose, dextromethorphan abuse, delirium, hypertensive emergency, suicide attempt Medical Records Attestation: I reviewed the patient's medical records. I did perform a limited focused review of portions of the patient's old chart on the electronic medical record. The patient was admitted last year for an NSTEMI. He was seen by psychiatry at the time who stated that he has a 18-year history of dextromethorphan abuse and his primary diagnosis was substance abuse. Home Medications Current Medication List: was personally reviewed by me Laboratory Data Attestation: I reviewed the patient's lab results. Result diagrams: 11/28/20 17:17 11/28/20 17:17 Lab Results 11/28/20 11/28/20 11/28/20 Range/Units 17:17 17:17 17:17 WBC 7.99 (4.8-10.8) K/uL RBC 4.22 L (4.7-6.1) M/uL Hgb 13.0 L (14.0-18.0) g/dL Hct 37.5 L (42-52) % MCV 88.9 (80-100) fL MCH 30.8 (25-34) pg MCHC 34.7 (32-36) g/dL RDW Std Deviation 42.6 (36.4-46.3) fL RDW Coeff of Liz 13.2 (11.5-14.5) % Plt Count 267 (130-400) K/uL MPV 10.3 (7.4-10.4) fL Immature Gran % (Auto) 0.1 % Neut % (Auto) 81.5 % Lymph % (Auto) 9.1 % [place] % (Auto) 7.4 % Eos % (Auto) 1.4 % Baso % (Auto) 0.5 % Neut # (Auto) 6.51 H (1.4-6.5) K/uL Lymph # (Auto) 0.73 L (1.2-3.4) K/uL [place] # (Auto) 0.59 (0.11-0.59) K/uL Eos # (Auto) 0.11 (0-0.5) K/uL Baso # (Auto) 0.04 (0-0.2) K/uL Immature Gran # (Auto) 0.01 (0.00-0.02) K/uL Sodium 140 (136-145) mmol/L Potassium 3.2 L (3.5-5.1) mmol/L Chloride 109 H (98-107) mmol/L Carbon Dioxide 24 (21-32) mmol/L Anion Gap 7.0 (3-11) BUN 15 (7-18) mg/dl Creatinine 1.29 (0.6-1.4) mg/dl Est Cr Clr Drug Dosing 77.1 ml/min Est GFR ( Amer) 81.5 ml/min Est GFR (Non-Af Amer) 70.4 ml/min BUN/Creatinine Ratio 11.5 (10-20) Glucose 88 (70-99) mg/dl Calcium 8.4 L (8.5-10.1) mg/dl Magnesium 2.0 (1.8-2.4) mg/dl Total Bilirubin 0.2 (0.2-1) mg/dl AST 16 (15-37) U/L ALT 18 (12-78) U/L Alkaline Phosphatase 78 (45-117) U/L Total Creatine Kinase 235 (39-308) U/L Troponin I < 0.015 (0-0.045) ng/ml Total Protein 6.5 (6.4-8.2) gm/dl Albumin 3.5 (3.4-5.0) gm/dl Globulin 3.0 (2.5-4.0) gm/dl Albumin/Globulin Ratio 1.2 (0.9-2) Salicylates 7.2 (2.8-20) mg/dl Acetaminophen 6 L (10-30) ug/ml Ethyl Alcohol mg/dL (0-3) mg/dl COVID-19 Eval Order 11/28/20 11/29/20 Range/Units 17:57 00:40 WBC (4.8-10.8) K/uL RBC (4.7-6.1) M/uL Hgb (14.0-18.0) g/dL Hct (42-52) % MCV (80-100) fL MCH (25-34) pg MCHC (32-36) g/dL RDW Std Deviation (36.4-46.3) fL RDW Coeff of Liz (11.5-14.5) % Plt Count (130-400) K/uL MPV (7.4-10.4) fL Immature Gran % (Auto) % Neut % (Auto) % Lymph % (Auto) % [place] % (Auto) % Eos % (Auto) % Baso % (Auto) % Neut # (Auto) (1.4-6.5) K/uL Lymph # (Auto) (1.2-3.4) K/uL [place] # (Auto) (0.11-0.59) K/uL Eos # (Auto) (0-0.5) K/uL Baso # (Auto) (0-0.2) K/uL Immature Gran # (Auto) (0.00-0.02) K/uL Sodium (136-145) mmol/L Potassium (3.5-5.1) mmol/L Chloride (98-107) mmol/L Carbon Dioxide (21-32) mmol/L Anion Gap (3-11) BUN (7-18) mg/dl Creatinine (0.6-1.4) mg/dl Est Cr Clr Drug Dosing ml/min Est GFR ( Amer) ml/min Est GFR (Non-Af Amer) ml/min BUN/Creatinine Ratio (10-20) Glucose (70-99) mg/dl Calcium (8.5-10.1) mg/dl Magnesium (1.8-2.4) mg/dl Total Bilirubin (0.2-1) mg/dl AST (15-37) U/L ALT (12-78) U/L Alkaline Phosphatase (45-117) U/L Total Creatine Kinase (39-308) U/L Troponin I (0-0.045) ng/ml Total Protein (6.4-8.2) gm/dl Albumin (3.4-5.0) gm/dl Globulin (2.5-4.0) gm/dl Albumin/Globulin Ratio (0.9-2) Salicylates (2.8-20) mg/dl Acetaminophen (10-30) ug/ml Ethyl Alcohol mg/dL < 3.0 (0-3) mg/dl COVID-19 Eval Order Covid19 at [facility] ECG Data Attestation: I personally reviewed and interpreted this ECG as follows: Indication: + toxicologic Rate (beats per minute): 125 Rhythm: + sinus tachycardia ECG [place]: + Normal ECG ST segments: + Nonspecific ST abnormalities ECG Findings: no PVCs MDM Narrative I did evaluate the patient as noted above. He is presenting with what appears to be some type of delirium after intentionally taking 3 bottles of dextromethorphan. He does not know what time he took it. He does have a longstanding history of abuse of dextromethorphan. He states this was not a suicide attempt. He has no complaints at this time. IV access was established. I did discuss the case with [place] poison control who recommended supportive care and benzodiazepines as needed. He was given Ativan 1 mg IV. Seizure precautions were observed. I did place an order for continuous cardiac monitoring. The monitor showed sinus tachycardia at a rate of 120 bpm. I did order and personally review the patient's 12-lead EKG as described above. He has sinus tachycardia. I did order and review the patient's blood work as noted in the electronic medical record. CBC is unremarkable without leukocytosis. His hemoglobin is slightly low at 13. This is not much change from his baseline. Electrolytes are unremarkable other than a potassium of 3.2 which is chronic for him. Troponin is negative. LFTs are unremarkable. Magnesium is 2. Salicylate and acetaminophen levels are within normal limits. I did reassess the patient multiple times. He continued to be slightly tachycardic but kept saying he felt much better. He remained intermittently diaphoretic and hypertensive. He was observed here for over 7 h and still was tachycardic and hypertensive. At this time I did not feel he was safe for discharge home and will need to be hospitalized for further care and evaluation. He confirms again that he did not do this as a suicide attempt. He states that he abuses dextromethorphan when his anxiety gets out of hand. Case was discussed with the heel caser and the hospitalist. Impression & Plan Drug overdose, intentional, Tachycardia Discharge Plan Visit Data Chief Complaint: Overdose (Intentional) Stated Complaint: OVERDOSE ED Provider: Shamar White Discharge Problem: Drug overdose, intentional, Tachycardia Patient Disposition: Being Evaluated by Hospitalist Forms Stand Alone Forms: My [facility], Suicide Prevention Resources Prescriptions Prescriptions: No Action No Known Home Medications RF: 0 atorvastatin 40 mg Tablet 80 mg PO QAM Qty: 30 RF: 0 Referrals Referrals: PCP,NO [Physician] - Discharge Problem: Drug overdose, intentional Qualifiers: Encounter type: initial encounter Qualified Code(s): T50.902A - Poisoning by unspecified drugs, medicaments and biological substances, intentional self-harm, initial encounter
[2020-11-28 17:52] LABS: Basophils # (auto) 0.04 K/uL (0-0.2); Basophils % (auto) 0.5 %; Eosinophils # (auto) 0.11 K/uL (0-0.5); Eosinophils % (auto) 1.4 %; Hematocrit (blood only) 37.5 % (42-52); Immature Granulocytes # (auto) 0.01 K/uL (0.00-0.02); Immature Granulocytes % (auto) 0.1 %; Lymphocytes # (auto) 0.73 K/uL (1.2-3.4); Lymphocytes % (auto) 9.1 %; Mean Corpuscular Hemoglobin 30.8 pg (25-34); Mean Corpuscular Hgb Conc 34.7 g/dL (32-36); Mean Corpuscular Volume 88.9 fL (80-100); Mean Platelet Volume 10.3 fL (7.4-10.4); Monocytes # (auto) 0.59 K/uL (0.11-0.59); Monocytes % (auto) 7.4 %; Neutrophils # (auto) 6.51 K/uL (1.4-6.5); Neutrophils % (auto) 81.5 %; Platelet Count 267 K/uL (130-400); RDW Coefficient of Variation 13.2 % (11.5-14.5); RDW Standard Deviation 42.6 fL (36.4-46.3); Red Blood Count 4.22 M/uL (4.7-6.1); White Blood Count 7.99 K/uL (4.8-10.8)
[2020-11-28 17:59] LABS: Alanine Aminotransferase 18 U/L (12-78); Albumin Level 3.5 gm/dl (3.4-5.0); Aspartate Aminotransferase 16 U/L (15-37); BUN Creatinine Ratio 11.5 (10-20); Blood Urea Nitrogen 15 mg/dl (7-18); Calcium 8.4 mg/dl (8.5-10.1); Carbon Dioxide 24 mmol/L (21-32); Chloride 109 mmol/L (98-107); Creatinine Clr Calc Pharmacy 77.1 ml/min; Est GFR (African American) 81.5 ml/min; Est GFR (Non-African American) 70.4 ml/min; Glucose 88 mg/dl (70-99); Potassium 3.2 mmol/L (3.5-5.1); Sodium 140 mmol/L (136-145)
[2020-11-28 18:01] LABS: Salicylate 7.2 mg/dl (2.8-20)
[2020-11-28 18:04] LABS: Albumin Globulin Ratio 1.2 (0.9-2); Alkaline Phosphatase 78 U/L (45-117); Bilirubin,Total 0.2 mg/dl (0.2-1); Creatine Kinase 235 U/L (39-308); Total Protein 6.5 gm/dl (6.4-8.2); Troponin I < 0.015 ng/ml (0-0.045)
[2020-11-29] MEDS ORDERED: POTASSIUM CHLORIDE CRTAB 20 MEQ TABCR PO STA (01:07)
[2020-11-29] MEDS ORDERED: METOPROLOL TARTRATE 50 MG TAB PO STA (01:14)
--- NOTE | 2020-11-29 01:16 | History & Physical Report ---
Date of Service November 29, 2020 Assessment & Plan (1) Dextromethorphan overdose: Plan: Dextromethorphan overdose- Patient reports drinking 3 small bottles of dextromethorphan because he was feeling depressed and wanted to take the edge off. He reports that he is not trying to commit suicide The patient will be admitted to telemetry for serial cardiac enzymes, serial EKG's, cardiac rhythm monitoring. (2) Elevated blood pressure reading without diagnosis of hypertension: Plan: Elevated blood pressure/tachycardia- Give metoprolol tartrate 50 mg p.o. x1 in the ED now Lopressor 5 mg IV every 4 hours as needed heart rate greater than 110 or systolic blood pressure greater than 160 Reassess in the morning to see if patient needs to be on regular treatment (3) Tachycardia: Plan: See above (4) Depression: Plan: Consult psychiatry (5) Polysubstance abuse: Plan: Urine drug screen pending History of Present Illness Chief Complaint: The patient presents to the emergency department due to altered mental status secondary to dextromethorphan overdose Primary Care Provider: MER Combs The patient is a 35-year-old male with a past medical including hyperlipidemia, polysubstance abuse, NSTEMI, submandibular gland sialoadenitis, Tom's angina, cocaine abuse, marijuana abuse, alcohol withdrawal, depression, intentional and unintentional drug overdoses. Patient reports that he was feeling depressed, and took 3 small bottles of dextromethorphan so he could take the edge off, without intent of killing himself. Allergies Allergy/AdvReac Type Severity Reaction Status Date / Time No Known Allergies Allergy Verified 11/29/20 02:05 Past Med/Surg History Medical History (Updated 11/29/20 @ 02:02 by Aram Armendariz MD) Cocaine abuse Depression Marijuana abuse in remission Surgical History History of dental surgery No pertinent past surgical history Social History Smoking Status: Current every day smoker Tobacco Type: Cigarettes Cigarettes Per Day: 10; Second Hand Exposure: No; Hx Alcohol Use: Yes Alcohol type: beer Hx Substance Use: Yes Last Used Substance: Unknown Last Used Substance Other:: Patient believes a year ago Preferred Language: Ukrainian Communication Ability: Effective Rehabilitation Counselor Required: No Beliefs That Will Affect Care: None Current Living Situation: Alone Current Living Situation Comment: Roomate Feels Safe at Home: Yes Assistive Devices: None Review of Systems Review of Systems: The patient denies chest pain, palpitations, shortness of breath, dyspnea on exertion, cough, lower extremity swelling, sore throat, fevers, chills, sweats, weight change, fatigue, nausea, vomiting, diarrhea , constipation, abdominal pain, pelvic pain, blood in urine or stool, dysuria, urinary frequency or urgency, lightheadedness, dizziness, headache, memory loss, loss of consciousness, rash, abnormal bruising or bleeding, imbalance, focal or generalized weakness, numbness or tingling in arms or legs, generalized arthralgias or myalgias, back or neck pain, or night sweats. The review of systems is otherwise negative other than for that already noted above, and at least 10 systems have been reviewed. Physical Exam Physical Exam: The patient is awake, mildly lethargic and oriented 3, well developed and well nourished, normocephalic and atraumatic, lying in bed and in no acute distress. HEENT--PERRL, EOMI, mucous membranes and oropharynx dry. Neck--supple. No JVD. No bruits. Thyroid normal, trachea midline, no adenopathy. Heart--normal S1 and S2. No murmurs, rubs or gallops. Lungs--clear bilaterally, no respiratory distress, no accessory muscle use. Abdomen--normal bowel sounds and soft. Nontender. Nondistended, no hernias or masses, no organomegaly. Extremities--no cyanosis or clubbing. No edema. Dermatologic--normal skin turgor, normal color, no abnormal lymph nodes, no rash. Neurologic--cranial nerves II through XII grossly intact. Rheumatologic--normal range of motion. Psychiatric--normal affect. Results & Data Results & Data ([facility]) Vital Signs (Past 12 Hours) Vital Signs Temp Pulse Pulse Resp BP BP Pulse Ox 11/29/20 00:56 103 H 16 151/109 H 99 11/28/20 22:53 119 H 16 180/126 H 98 11/28/20 21:03 92 H 16 162/104 H 98 11/28/20 19:22 108 H 16 175/109 H 98 11/28/20 18:48 104 H 16 97 11/28/20 18:02 110 H 16 161/107 H 97 11/28/20 17:36 96 11/28/20 17:05 98.8 F 124 H 16 177/111 H 94 Laboratory Results Laboratory Results WBC 7.99 K/uL (4.8-10.8) 11/28/20 17:17 RBC 4.22 M/uL (4.7-6.1) L 11/28/20 17:17 Hgb 13.0 g/dL (14.0-18.0) L 11/28/20 17:17 Hct 37.5 % (42-52) L 11/28/20 17:17 MCV 88.9 fL (80-100) 11/28/20 17:17 MCH 30.8 pg (25-34) 11/28/20 17:17 MCHC 34.7 g/dL (32-36) 11/28/20 17:17 RDW Std Deviation 42.6 fL (36.4-46.3) 11/28/20 17:17 RDW Coeff of Liz 13.2 % (11.5-14.5) 11/28/20 17:17 Plt Count 267 K/uL (130-400) 11/28/20 17:17 MPV 10.3 fL (7.4-10.4) 11/28/20 17:17 Immature Gran % (Auto) 0.1 % 11/28/20 17:17 Neut % (Auto) 81.5 % 11/28/20 17:17 Lymph % (Auto) 9.1 % 11/28/20 17:17 [place] % (Auto) 7.4 % 11/28/20 17:17 Eos % (Auto) 1.4 % 11/28/20 17:17 Baso % (Auto) 0.5 % 11/28/20 17:17 Neut # (Auto) 6.51 K/uL (1.4-6.5) H 11/28/20 17:17 Lymph # (Auto) 0.73 K/uL (1.2-3.4) L 11/28/20 17:17 [place] # (Auto) 0.59 K/uL (0.11-0.59) 11/28/20 17:17 Eos # (Auto) 0.11 K/uL (0-0.5) 11/28/20 17:17 Baso # (Auto) 0.04 K/uL (0-0.2) 11/28/20 17:17 Immature Gran # (Auto) 0.01 K/uL (0.00-0.02) 11/28/20 17:17 Sodium 140 mmol/L (136-145) 11/28/20 17:17 Potassium 3.2 mmol/L (3.5-5.1) L 11/28/20 17:17 Chloride 109 mmol/L (98-107) H 11/28/20 17:17 Carbon Dioxide 24 mmol/L (21-32) 11/28/20 17:17 Anion Gap 7.0 (3-11) 11/28/20 17:17 BUN 15 mg/dl (7-18) 11/28/20 17:17 Creatinine 1.29 mg/dl (0.6-1.4) 11/28/20 17:17 Est Cr Clr Drug Dosing 77.1 ml/min 11/28/20 17:17 Est GFR ( Amer) 81.5 ml/min 11/28/20 17:17 Est GFR (Non-Af Amer) 70.4 ml/min 11/28/20 17:17 BUN/Creatinine Ratio 11.5 (10-20) 11/28/20 17:17 Glucose 88 mg/dl (70-99) 11/28/20 17:17 Calcium 8.4 mg/dl (8.5-10.1) L 11/28/20 17:17 Magnesium 2.0 mg/dl (1.8-2.4) 11/28/20 17:17 Total Bilirubin 0.2 mg/dl (0.2-1) 11/28/20 17:17 AST 16 U/L (15-37) 11/28/20 17:17 ALT 18 U/L (12-78) 11/28/20 17:17 Alkaline Phosphatase 78 U/L (45-117) 11/28/20 17:17 Total Creatine Kinase 235 U/L (39-308) 11/28/20 17:17 Troponin I < 0.015 ng/ml (0-0.045) 11/28/20 17:17 Total Protein 6.5 gm/dl (6.4-8.2) 11/28/20 17:17 Albumin 3.5 gm/dl (3.4-5.0) 11/28/20 17:17 Globulin 3.0 gm/dl (2.5-4.0) 11/28/20 17:17 Albumin/Globulin Ratio 1.2 (0.9-2) 11/28/20 17:17 Salicylates 7.2 mg/dl (2.8-20) 11/28/20 17:17 Acetaminophen 6 ug/ml (10-30) L 11/28/20 17:17 Ethyl Alcohol mg/dL < 3.0 mg/dl (0-3) 11/28/20 17:57 COVID-19 Eval Order Covid19 at [facility] 11/29/20 00:40 SARS-CoV-2 (PCR) NEGATIVE (Negative) 11/29/20 00:40 Code Status & VTE Plan Code Status Full code VTE Prophylaxis Plan VTE Prophylaxis will be ordered: Yes PG Care Time/CCT Total # of Minutes Spent Total Time Spent with Patient: Total time spent is greater than 50% in coordination of care (as documented) at patient's floor/unit and/or counseling patient: Coding Level of Care Code INT OBSERVATION CARE 70M LVL 3 Diagnoses Dextromethorphan overdose T48.3X2A Encounter type: initial encounter Injury intent: intentional self-harm Polysubstance abuse F19.10 Tachycardia R00.0 Depression F32.2 Depression Type: major depressive disorder Major depression recurrence: unspecified whether recurrent Active/Remission status: currently active Major depression episode severity: severe Psychotic features: without psychotic features Elevated blood pressure reading without diagnosis of hypertension R03.0 (1) Dextromethorphan overdose Encounter type: initial encounter Injury intent: intentional self-harm Qualified Code(s): T48.3X2A - Poisoning by antitussives, intentional self-harm, initial encounter (2) Depression Depression Type: major depressive disorder Major depression recurrence: unspecified whether recurrent Active/Remission status: currently active Major depression episode severity: severe Psychotic features: without psychotic features Qualified Code(s): F32.2 - Major depressive disorder, single episode, severe without psychotic features
[2020-11-29 02:19] LABS: Amphetamines+Metham, Urine Neg (Neg); Barbiturates, Urine Neg (Neg); Benzodiazepine, Urine Neg (Neg); Cocaine, Urine Neg (Neg); MDMA (Ecstacy), Urine Neg (Neg); Methadone, Urine Neg (Neg); Opiate, Urine Pos (Neg); Phencyclidine, Urine Pos (Neg)
[2020-11-29] MEDS ORDERED: METOPROLOL TARTRATE 1 MG/ML VIAL IV PRN (03:11)
[2020-11-29] MEDS ORDERED: ACETAMINOPHEN 325 MG TAB PO PRN (03:11)
[2020-11-29] MEDS ORDERED: ONDANSETRON INJ 2 MG/ML 2 ML VIAL IV PRN (03:11)
[2020-11-29] MEDS ORDERED: NSS + 20MEQ KCL 20 MEQ/1,000 ML BAG IV SCH (03:30)
[2020-11-29 03:41] LABS: Basophils # (auto) 0.07 K/uL (0-0.2); Basophils % (auto) 0.8 %; Eosinophils # (auto) 0.24 K/uL (0-0.5); Eosinophils % (auto) 2.7 %; Hemoglobin 13.7 g/dL (14.0-18.0); Immature Granulocytes # (auto) 0.02 K/uL (0.00-0.02); Immature Granulocytes % (auto) 0.2 %; Lymphocytes # (auto) 1.51 K/uL (1.2-3.4); Lymphocytes % (auto) 17.1 %; Mean Corpuscular Hgb Conc 34.3 g/dL (32-36); Mean Corpuscular Volume 87.7 fL (80-100); Monocytes # (auto) 0.69 K/uL (0.11-0.59); Monocytes % (auto) 7.8 %; Neutrophils % (auto) 71.4 %; Platelet Count 294 K/uL (130-400); RDW Coefficient of Variation 13.3 % (11.5-14.5); RDW Standard Deviation 42.4 fL (36.4-46.3); Red Blood Count 4.56 M/uL (4.7-6.1); White Blood Count 8.83 K/uL (4.8-10.8)
[2020-11-29 03:55] LABS: INR 1.1 (0.9-1.1)
[2020-11-29 03:59] LABS: Albumin Level 3.5 gm/dl (3.4-5.0); BUN Creatinine Ratio 10.2 (10-20); Calcium 8.2 mg/dl (8.5-10.1); Creatinine Clr Calc Pharmacy 73.9 ml/min; Est GFR (African American) 82.3 ml/min; Potassium 3.6 mmol/L (3.5-5.1)
[2020-11-29 04:02] LABS: Albumin Globulin Ratio 1.1 (0.9-2); Bilirubin,Total 0.4 mg/dl (0.2-1); Globulin 3.1 gm/dl (2.5-4.0); Total Protein 6.6 gm/dl (6.4-8.2)
[2020-11-29 07:43] VITALS: O2SAT 97
--- NOTE | 2020-11-29 07:59 | Electrocardiogram Report ---
Test Reason : Blood Pressure : / mmHG Vent. Rate : 125 BPM Atrial Rate : 125 BPM P-R Int : 128 ms QRS Dur : 098 ms QT Int : 336 ms P-R-T Axes : 056 038 061 degrees QTc Int : 484 ms Sinus tachycardia Left atrial enlargement Diffuse Minor Nonspecific ST and T wave abnormality Abnormal ECG When compared with ECG of 03-JAN-2020 10:32, Premature supraventricular complexes are no longer Present Vent. rate has increased BY [address] now depressed in Anterior leads T wave inversion now evident in Anterior leads Confirmed by Roman Irwin ([id number]) on 11/29/2020 7:58:59 AM Referred By: REFERRED SELF Confirmed By:Roman Irwin
--- NOTE | 2020-11-29 08:07 | Hospitalist Progress Note ---
Date of Service November 29, 2020 Assessment & Plan (1) Dextromethorphan overdose: Plan: Patient is a 35yo M with PMH of depression, polysubstance abuse, intentional and unintentional drug overdoses, NSTEMI, hyperlipidemia, submandibular gland sialoadenitis, Tom's angina who is admitted due to unintentional dextromethorphan overdose. Dextromethorphan overdose with history of polysubstance abuse: - Patient reports drinking 3 small bottles of dextromethorphan because he was feeling depressed and wanted to take the edge off. - He reports that he is not trying to commit suicide - Serial cardiac enzymes negative - Psych consulted - Patient denying suicide attempt--report using DM recreationally monthly when he is feeling stressed - UDS positive for opiates, PCP, marijuana Depression: - Consult psychiatry - Per psych liaison patient seen previously by psych service in hospital and referred to counseling services as well as started on Wellbutrin - Patient stopped counseling as he did not find it helpful--will be provided with info for psychiatry and drug/alcohol resources in the area - Also stopped Wellbutrin as he did not find the med worked for him - Per, psych liaison note, patient will be seen by psychiatrist today Elevated blood pressure reading without diagnosis of hypertension: - Elevated blood pressure/tachycardia on admission, now resolved - Give metoprolol tartrate 50 mg p.o. x1 in the ED now - Lopressor 5 mg IV every 4 hours as needed heart rate greater than 110 or systolic blood pressure greater than 160 -- has not needed this - Recommend outpatient discussion/monitoring DVT prophylaxis: FEN: Regular diet Dispo: Med/surg, plan for DC home with outpatient PCP follow-up Code: FULL CODE (2) Elevated blood pressure reading without diagnosis of hypertension: (3) Depression: (4) Polysubstance abuse: Admission and Anticipated Discharge Date Admission Date: November 29, 2020 Subjective No acute events. Seen at bedside laying comfortably. Reports no real concerns and denies any current symptoms except for feeling a bit tired. Denies that this was a suicide attempt. Says he was taking DM to take the edge of from various stressors. Denies other substances. Review of Systems Review of Systems: Denies fever, chills, TORIIBO, CP, palpitations, SOB, cough, n/v, abd pain, diarrhea, constipation. Physical Exam Physical Exam: The patient is awake, mildly lethargic and oriented 3, well developed and well nourished, normocephalic and atraumatic, lying in bed and in no acute distress. HEENT--PERRL, EOMI, mucous membranes and oropharynx dry. Neck--supple. No JVD. No bruits. Thyroid normal, trachea midline, no adenopathy. Heart--normal S1 and S2. No murmurs, rubs or gallops. Lungs--clear bilaterally, no respiratory distress, no accessory muscle use. Abdomen--normal bowel sounds and soft. Nontender. Nondistended, no hernias or masses, no organomegaly. Extremities--no cyanosis or clubbing. No edema. Dermatologic--normal skin turgor, normal color, no abnormal lymph nodes, no rash. Neurologic--cranial nerves II through XII grossly intact. Rheumatologic--normal range of motion. Psychiatric--normal affect. Results & Data Results & Data ([facility]) Vital Signs (Past 12 Hours) Vital Signs Temp Pulse Pulse Resp BP Pulse Ox 11/29/20 07:42 36.9 C 68 16 147/90 H 97 11/29/20 03:50 76 11/29/20 03:15 36.7 C 77 18 149/99 H 95 11/29/20 02:24 86 16 143/102 H 97 11/29/20 00:56 103 H 16 151/109 H 99 11/28/20 22:53 119 H 16 180/126 H 98 11/28/20 21:03 92 H 16 162/104 H 98 (1) Dextromethorphan overdose Encounter type: initial encounter Injury intent: intentional self-harm Qualified Code(s): T48.3X2A - Poisoning by antitussives, intentional self-harm, initial encounter
[2020-11-29] MEDS ORDERED: NICOTINE 14 MG/24 HR PATCH TD SCH (09:00)
[2020-11-29 11:04] VITALS: TEMP 98.6
[2020-11-29 15:34] VITALS: BP 145/92
--- NOTE | 2020-11-29 15:53 | Psychiatric Consultation ---
Date of Consultation November 29, 2020 Impression / Recommendations Impression This is a 35-year-old male with a history of polysubstance abuse who presents following a recreational intentional overdose of dextromethorphan. Patient acknowledging that his use is problematic, however at this time is not willing to allow psychiatry to set up rehab services for him. Patient was provided with a list of resources should he decide to attend rehab in the future. He denies any acute psychiatric symptoms and is stable for discharge to the community from a psychiatric perspective. (1) Polysubstance abuse: -No further psychiatric intervention -Patient is stable for discharge from a psychiatric perspective Psych History Identifying Data 35-year-old male admitted following a intentional overdose of Robitussin. Patient acknowledges that he was abusing the medication recreationally. Chief Complaint "I am okay just a little groggy". History of Present Illness HPI as per psychiatric liaison "Met with pt for initial interview. Consulted for depression, Dextromethophan overdose. Pt states he drinks Dextromethophan recreationally monthly. He states he drinks when he feels "stressed". Pt stated he was feeling stressed over financial issues, lack of employment and tra nsportation issues so he drank to "take the edge off." He is denying this as a suicide attempt and denies current SI or HI. Denies hallucinations or SIB. He denies any current outpatient providers or psychotropic medications. Pt was on consult service last year (12/2019) where he was referred to [facility] counseling and was also initiated on Wellbutrin. He stated he followed up with [facility] but "didn't think it was beneficial so stopped going." He is declining a referral to [facility] at this time. He states he stopped the Wellbutrin because it "wasn't working." He states he would be open to receiving local resources for therapy via telehealth. Current substance use includes Dextromethophan monthly and MJ every other day according to pt. He is denying any current alcohol use or cocaine use. Pt's PHQ-9=6. Pt denies guns or weapons in home. He is planning on returning home upon discharge and is able to contract for safety. Pt will be provided with local resources for both psychiatry and Drug and alcohol. He is declining inpatient rehab at this time. Pt informed he would be seeing the psychiatrist today for initial consult. Verbalized understanding. Encouraged to reach out to our services if he has any additional questions or concerns." Upon evaluation this afternoon, patient endorsed the above information is accurate. He adamantly denied any suicidal or homicidal ideation. He reported that he would follow-up with psychiatric services if he felt he needed. He was educated as to how his use can be dangerous especially when mixing multiple substances. He denies any psychotic or manic symptoms. No access to guns. Allergies Allergy/AdvReac Type Severity Reaction Status Date / Time No Known Allergies Allergy Verified 11/29/20 02:05 Home Medications Medication Instructions Recorded Confirmed Type ibuprofen 200 mg tablet (Advil) 400 mg PO Q6H PRN 11/29/20 11/29/20 History Personal History Beliefs That Will Affect Care: None Patient History Medical History (Updated 11/29/20 @ 02:02 by Aram Armendariz MD) Cocaine abuse Depression Marijuana abuse in remission Surgical History History of dental surgery No pertinent past surgical history Social History Smoking Status: Current every day smoker Tobacco Type: Cigarettes Cigarettes Per Day: 10; Second Hand Exposure: Yes; Hx Alcohol Use: Yes Alcohol type: beer Hx Substance Use: No Preferred Language: Egyptian Communication Ability: Effective Caustic [employer] Superintendent Required: No Beliefs That Will Affect Care: None Current Living Situation: Alone Current Living Situation Comment: Roomate Feels Safe at Home: Yes Assistive Devices: None Physical Exam Psychiatric: Orientation: alert and oriented x 3 Apperance: + disheveled Eye Contact: + fair eye contact Lethargic Speech: normal rate/rhythm/volume of speech Affect: + blunted affect Mood: no depressed mood and no anxious mood Thought Process: goal directed thought process Thought Content: reality based without delusions Suicidal Thoughts: denies suicidal thoughts Homicidal Thoughts: denies homicidal thoughts Hallucinations: no auditory hallucinations Cognition: recent memory grossly intact Estimated Intelligence: consistent with education level Insight: + fair insight Judgement: + fair judgement Vital Signs (Past 24 Hours): Last Vital Signs Temp 37 C 11/29/20 15:33 Pulse 72 11/29/20 15:33 Resp 16 11/29/20 15:33 BP 145/92 H 11/29/20 15:33 Pulse Ox 97 11/29/20 15:33 Results & Data (PSY) Medications Administered Miscellaneous (Remove Nicoderm Patch) 1 ea N/A Q24H NEAL Stop: 12/29/20 08:58 Last Admin: 11/29/20 08:02 Dose: Not Given Documented by: [id number] Nicotine (Nicotine 14 Mg/24 Hr Patch) 14 mg TD Q24H NEAL Stop: 12/29/20 08:59 Last Admin: 11/29/20 08:00 Dose: 14 mg Documented by: [id number] Coding Level of Care Code 67500 [facility] Int[facility] Hosp Care Lvl 2 Diagnoses Polysubstance abuse F19.10 Time Spent (min) 45
[2020-11-29 16:32] VITALS: PULSE 72
--- NOTE | 2020-11-29 16:39 | Discharge Summary ---
Date of Service November 29, 2020 Admission HPI Per Admitting Provider The patient is a 35-year-old male with a past medical including hyperlipidemia, polysubstance abuse, NSTEMI, submandibular gland sialoadenitis, Tom's angina, cocaine abuse, marijuana abuse, alcohol withdrawal, depression, intentional and unintentional drug overdoses. Patient reports that he was feeling depressed, and took 3 small bottles of dextromethorphan so he could take the edge off, without intent of killing himself. Principal Diagnosis Dextromethorphan overdose Discharge Exam GENERAL: A&Ox3. NAD. HEENT: PERRL, EOMI. Moist mucous membranes. CHEST/LUNGS: CTAB A/P. No crackles, wheezes, rales, rhonchi. HEART: RRR. No m/g/r. No carotid bruits. ABDOMEN: NT/ND, soft. BS+ x4 EXTREMITIES: No cyanosis, no clubbing, no edema SKIN: Warm and dry. No rashes or lesions. PSYCHIATRIC: Euthymic affect, no SI, no pressured speech, no hallucinations NEUROLOGIC: CN II-XII grossly intact. No FND. Discharge Data Allergies Allergy/AdvReac Type Severity Reaction Status Date / Time No Known Allergies Allergy Verified 11/29/20 02:05 Consultations 11/29/20 00:29 ED Decision to Admit Stat 11/29/20 02:06 Consult Psychiatry Routine Hospital Course (1) Dextromethorphan overdose: Patient is a 35yo M with PMH of depression, polysubstance abuse, intentional and unintentional drug overdoses, NSTEMI, hyperlipidemia, submandibular gland sialoadenitis, Tom's angina who is admitted due to unintentional dextromethorphan overdose. Dextromethorphan overdose with history of polysubstance abuse: - Patient reported drinking 3 small bottles of dextromethorphan because he was feeling depressed and wanted to take the edge off - Patient denying suicide attempt--reported using DM recreationally monthly when he is feeling stressed - UDS positive for opiates, PCP, marijuana - Serial cardiac enzymes negative Depression: - Consult psychiatry - Per psych liaison patient seen previously by psych service in hospital and referred to counseling services as well as started on Wellbutrin - Patient stopped counseling as he did not find it helpful - Also stopped Wellbutrin as he did not find the med worked for him - Refusing referral/placement in inpatient rehab at this time--will be provided with info for psychiatry and drug/alcohol resources in the area - Stable for discharge per Psychiatrist Elevated blood pressure reading without diagnosis of hypertension: - Elevated blood pressure/tachycardia on admission, now resolved - Given metoprolol tartrate 50 mg p.o. x1 in the ED - Did continue to have elevated by in 140s/90s range throughout hospital stay - Recommend outpatient discussion/monitoring Dispo: Home (2) Elevated blood pressure reading without diagnosis of hypertension: (3) Depression: (4) Polysubstance abuse: Total Time Total Time Spent Total Time Spent (In Minutes): See attending attestation Discharge Plan Discharge Items Patient Disposition: Home - Self-Care Reason For Visit: DETROMETHORPHAN OD Discharge Diagnosis: Dextromethorphan OD, depression/anxiety Activity: Per Instructions section Non-emergency contact: Primary Care Provider Call non-emergency contact if: you have any medication questions and your symptoms worsen Follow-up/Referrals: Vincent Sloan CRNP [Primary Care Provider] - Diet: Heart Healthy Addtl Attending Provider Instructions: You were admitted to [facility] due to dextromethorphan overdose. According to our discussion, you were not attempting to commit suicide or hurt yourself in any way. Since you did report feeling depress/anxious and using the dextromethorphan to help with the way you felt, we recommend following up with your PCP to discuss possible superintendent terminal treatment for this condition. You were evaluated by our psychiatry team and provided list of resources for consideration of rehab in the future. We recommend that you abstain from using substances including dextromethorphan in the future as these may have unwanted side effects that could cause you significant illness or even . If you have any worsening of symptoms, develop suicidal ideation, want to harm yourself or others in any way, please call 9-1-1 for help. Pending Studies at Discharge: No Stand-Alone Forms: [facility], Smoking Cessation Medications and DC Order Prescriptions: Continued ibuprofen [Advil] 200 mg Tablet 400 mg PO Q6H PRN (Reason: headache/pain) RF: 0 Discharge Orders: Discharge Order (Routine); Ordered 11/29/20 Ordered By: Peterson Quispe Admission Data Admit Date/Time: 11/29/20 01:15 Attending Provider: Lisa Loza Admit Provider: Aram Armendariz Primary Care Provider: Vincent Sloan Other Providers: Aram Armendariz ; Ara Hightower ; Leydi Burton ; Calderon Morgan Other Interventions: Discharge Summary Assessment (RN) Last Done: 11/29/20 16:30 Supervising Physician Co-Signing Physician Notes Resident Physician Supervision Note: I independently interviewed and examined the patient and verified the woods history and physical, reviewed labs and image studies and agree with resident Dr. Barriga findings and care plan. Resident Activity Tracking Resident Involvement: Resident Care Provided Care Provided: Adult Hospital Medicine
[2020-12-01 08:41] LABS: Codeine Urine NEGATIVE ng/mL (<50); Hydrocodone Urine NEGATIVE ng/mL (<50); Hydromor Urine NEGATIVE ng/mL (<50); Marijuana Quant, GCMS Urine 3229 ng/mL (<5); Morphine Urine NEGATIVE ng/mL (<50); Norhydrocodone Conf Ur NEGATIVE ng/mL (<50); Noroxycodone Urine NEGATIVE ng/mL (<50); Oxycodone Urine NEGATIVE ng/mL (<50); Oxymorph Urine NEGATIVE ng/mL (<50)
== END 2020-11-29 17:27 | disposition home or self-care (01) ==
LOC: ED 16:59 → 2W 16:59 → SUATTDRO 11-29 01:15 → 2W 11-29 02:40

== ENCOUNTER 2023-08-25 02:25 | Observation (INO) ==
--- NOTE | 2023-08-25 02:30 | Emergency Department Note ---
Impression & Plan Acute alteration in mental status, Elevated troponin, Colloid cyst of brain ED Provider Note CHIEF COMPLAINT: Alcohol intoxication HISTORY OF PRESENTING ILLNESS: This 38-year-old male patient presents to the emergency department via EMS for evaluation of possible alcohol intoxication. The patient was apparently found at [facility] and was noted to be acting "weird." The patient states that his car broke down and he had walked from [facility] to [facility]. He denies drinking any alcohol tonight. He denies any drug use tonight. EMS noted one-person was concerned about him taking a bottle of cough syrup, but the patient initially denied ever having any cough syrup. However, later he did state that he took half a bottle of Delsym for a cough he had followed by the second half of the bottle this morning. The patient denies any alcohol or drug use tonight. The patient denies any injury or trauma. He denies any chest pain, shortness of breath, abdominal pain, nausea, or vomiting. He denies any fevers. Denies any urinary symptoms or changes in his BMs. REVIEW OF SYSTEMS: See HPI for pertinent positives and pertinent negatives. ALLERGIES: NKDA MEDICATIONS: See below PAST MEDICAL HISTORY: See below PHYSICAL EXAM: VITALS: Vitals are noted on the nurse's note and reviewed by myself. GENERAL: Non toxic, no acute distress, non-diaphoretic. SKIN: No obvious signs of trauma on exam. No obvious lacerations or abrasions noted. Capillary refill <2 sec. EYES: PERRLA. EOMI. Conjunctivae without injection, sclerae without icterus. NOSE: Patent without discharge. MOUTH: Mucous membranes moist. Uvula midline. Airway patent. NECK: Supple without nuchal rigidity. HEART: Regular rate and rhythm without murmurs gallops or rubs. LUNGS: Clear to auscultation bilaterally without wheezes, rales or rhonchi. No retractions or accessory muscle use. ABDOMEN: Positive bowel sounds x 4. Normal tympanic percussion. Soft, nontender. No masses or organomegaly. Bender sign negative. No guarding or rebound tenderness. No focal RLQ or LLQ tenderness. MUSCULOSKELETAL: No gross musculoskeletal defects. NEURO: The patient appears intoxicated on exam. He is able to answer questions, but not always correctly or coherently. DIFFERENTIAL DIAGNOSIS: Differential diagnosis includes alcohol intoxication, drug intoxication, hypoglycemia, infectious process, intracranial bleed, psychosis, among others. ED COURSE AND MEDICAL DECISION MAKING: HISTORY FROM INDEPENDENT HISTORIAN: Additional history was obtained from EMS. MONITOR: Continuous nuclear monitoring technician: Order was placed for continuous nuclear monitoring technician. Patient was placed on the nuclear monitoring technician and continuous pulse ox. Patient was noted to be in normal sinus rhythm at an initial rate of 96 bpm per my interpretation. EKG: EKG was interpreted by myself as normal sinus rhythm at 94 bpm with prolonged QT, but no acute ST or T wave changes. Repeat EKG was interpreted by myself as normal sinus rhythm at 78 bpm with prolonged QT and nonspecific T wave abnormality, but no acute ST or T wave changes. MEDICATIONS GIVEN: 1 L normal saline solution bolus. Lopressor 5 mg IV. INTERPRETATION OF LABS: I interpreted the labs with full lab results as below in the lab section of this note. [id number] glucose 113. White blood cell count elevated 11.19. Hemoglobin low at 13.0. Platelet count normal at 222. Coags are normal. Potassium slightly low at 3.4, glucose 105, but CMP otherwise without acute abnormalities. Lactate normal. Procalcitonin normal. TSH normal. High-sensitivity troponin elevated 27.9 with repeat elevated at 35.4. Urinalysis normal. Urine drug screen positive for marijuana. Medical alcohol less than 10. Acetaminophen and salicylate level normal. Respiratory bio fire negative. INTERPRETATION OF IMAGING: Chest x-ray per my interpretation was negative for acute cardiopulmonary etiology. Radiology report still pending. Additional imaging studies were interpreted by myself and read by radiology as per the imaging section of this note. CT scan of the head without contrast showed no evidence of acute intracranial pathology. However the, there is a tiny colloid cyst at the foramen of Monro measuring 3.8 x 3.8 mm without evidence of obstructive hydrocephalus at this time. CONSULTATIONS: On-call hospitalist MDM SUMMARY: I examined the patient. Per EMS, the patient was found at [facility] acting "weird" and was brought to the emergency department for evaluation of a possible alcohol intoxication. The patient initially appeared intoxicated on exam and was having difficulty answering questions appropriately. An IV lock was placed and labs were drawn. Laboratory studies as above. The patient's alcohol level was less than 10. Therefore, additional workup was obtained. The patient's mental status improved throughout his stay in the ER especially after the IV fluids. The patient states that he did drink half a bottle of Delsym followed by the second half of the bottle of Delsym earlier today due to cough. Chest x-ray per my interpretation was negative for acute abnormalities. Lactate and procalcitonin were normal. White blood cell count was mildly elevated at 11.19. Urine drug screen positive for marijuana. Acetaminophen and salicylate levels were normal. Respiratory bio fire negative. High-sensitivity troponin was elevated at 27.9 with repeat elevated at 35.4. EKGs x 2 without evidence for STEMI. CT scan of the head without contrast showed no acute intracranial pathology, but did show a tiny colloid cyst. The patient was given Lopressor 5 mg IV in addition to his 1 L normal saline solution bolus. The patient's mental status improved on recheck exam compared to when he was first brought in by EMS. However, due to the patient's change in mental status, elevated troponin, and CT scan findings, we feel the patient requires admission for further evaluation and treatment. I spoke with the on-call hospitalist who agreed to admit the patient for further management. Please refer to their dictation for further details. The patient's care was transferred in stable condition. DIAGNOSIS: Altered mental status Elevated troponin Colloid cyst Past Med/Surg History Problem List (Updated 08/25/23 @ 07:51 by Hortencia Huynh PA-C) Colloid cyst of brain (Acute) Elevated troponin (Acute) Acute alteration in mental status (Acute) Confusion Elevated blood pressure reading without diagnosis of hypertension Tachycardia (Acute) Polysubstance abuse Dextromethorphan overdose (Acute) NSTEMI (non-ST elevated myocardial infarction) (Acute) Elevated troponin (Acute) Neck infection (Acute) Sialoadenitis of submandibular gland Ludwigs angina Impetigo (Acute) Depression (Chronic) Alcohol withdrawal Depression (Acute) Drug overdose, intentional (Acute) Mood disorder (Acute) Overdose (Acute) Overdose (Acute) Surgical History History of dental surgery No pertinent past surgical history Social History Smoking Status: Current every day smoker Tobacco Type: Cigarettes and E-cigarettes / Vaping Cigarettes Per Day: 10; Second Hand Exposure: Yes; Do You Dip or Chew Tobacco: No; Hx Alcohol Use: Yes Alcohol type: beer Hx Substance Use: No Preferred Language: Bangladeshi Communication Ability: Effective Senior Brand Manager Required: No Beliefs That Will Affect Care: None Current Living Situation: Alone Current Living Situation Comment: Roomate Feels Safe at Home: Yes Assistive Devices: None Allergies Allergies Allergy/AdvReac Type Severity Reaction Status Date / Time No Known Allergies Allergy Verified 11/29/20 02:05 Home Meds Home Medications Medication Instructions Recorded Confirmed ibuprofen 200 mg tablet (Advil) 400 mg PO Q6H PRN headache/pain 11/29/20 11/29/20 Results & Data (ED) Vital Signs Vital Signs - 24 hr 08/25/23 02:31 08/25/23 02:38 08/25/23 03:09 Temperature 37.2 C Temperature Source Oral Pulse Rate 109 H 105 H 98 H Pulse Rate from SpO2 Sensor 99 H Respiratory Rate 16 22 Respiratory Effort / Characteristics Non-Labored Respiratory Depth Normal Blood Pressure 175/107 H 170/106 H Blood Pressure Mean 129 127 Pulse Oximetry 94 96 Oxygen Delivery Method Room Air Room Air Sepsis Recent Fever Within 48 Hours No Sepsis New/Unexplained Change in Mental Status No Sepsis Action Taken by Nursing No Action Required 08/25/23 04:19 08/25/23 05:22 08/25/23 05:30 Temperature Temperature Source Pulse Rate 94 H 97 H 84 Pulse Rate from SpO2 Sensor 83 Respiratory Rate 20 21 Respiratory Effort / Characteristics Respiratory Depth Blood Pressure 181/135 H 172/114 H 181/120 H Blood Pressure Mean 145 140 Pulse Oximetry 95 96 Oxygen Delivery Method Room Air Room Air Sepsis Recent Fever Within 48 Hours Sepsis New/Unexplained Change in Mental Status Sepsis Action Taken by Nursing 08/25/23 06:06 Temperature Temperature Source Pulse Rate 90 Pulse Rate from SpO2 Sensor 90 Respiratory Rate 19 Respiratory Effort / Characteristics Respiratory Depth Blood Pressure 160/108 H Blood Pressure Mean 125 Pulse Oximetry 98 Oxygen Delivery Method Room Air Sepsis Recent Fever Within 48 Hours Sepsis New/Unexplained Change in Mental Status Sepsis Action Taken by Nursing Laboratory Data 08/25/23 02:40 08/25/23 02:40 Lab Results 08/25/23 08/25/23 08/25/23 Range/Units 02:40 02:46 04:10 WBC 11.19 H (4.8-10.8) K/ul RBC 4.37 L (4.70-6.10) M/uL Hgb 13.0 L (14.0-18.0) g/dl Hct 38.0 L (42.0-52.0) % MCV 87.0 (80.0-100.0) fL MCH 29.7 (25.0-34.0) pg MCHC 34.2 (32.0-36.0) g/dL RDW Std Deviation 42.6 (36.4-46.3) fL RDW Coeff of Liz 13.5 (11.5-14.5) % Plt Count 222 (130-400) K/uL MPV 10.8 (9.4-12.4) fL Immature Gran % (Auto) 0.3 % Neut % (Auto) 87.8 % Lymph % (Auto) 6.1 % [place] % (Auto) 4.8 % Eos % (Auto) 0.5 % Baso % (Auto) 0.5 % Neut # (Auto) 9.82 H (1.40-6.50) K/uL Lymph # (Auto) 0.68 L (1.20-3.40) K/uL [place] # (Auto) 0.54 (0.11-0.59) K/uL Eos # (Auto) 0.06 (0.00-0.50) K/uL Baso # (Auto) 0.06 (0.00-0.20) K/uL Immature Gran # (Auto) 0.03 (0.01-0.20) K/uL ESR 3 (0-15) mm/hr PT 10.9 (9.0-12.0) Seconds INR 1.0 (0.9-1.1) APTT 24 (21-31) Seconds PTT Ratio 0.9 Sodium 140 (136-145) mmol/L Potassium 3.4 L (3.5-5.1) mmol/L Chloride 107 (98-107) mmol/L Carbon Dioxide 26 (21-32) mmol/L Anion Gap 7 (3-11) BUN 15 (6-23) mg/dl Creatinine 1.25 (0.6-1.4) mg/dl Est Cr Clr Drug Dosing 73.4 ml/min Est GFR ( Amer) 83.0 ml/min Est GFR (Non-Af Amer) 71.6 ml/min BUN/Creatinine Ratio 12.0 (10-20) Glucose 105 H (70-99(Fasting)) mg/dl POC Glucose 113 H (70-99) mg/dl Lactate 1.4 (0.4-2.0) mmol/L Calcium 8.9 (8.6-10.3) mg/dl Total Bilirubin 0.3 (0.2-1.0) mg/dl AST 20 (13-39) U/L ALT 14 (7-52) U/L Alkaline Phosphatase 62 (34-104) U/L Troponin I High Sens 27.9 H (0-20) pg/ml Total Protein 7.2 (6.0-8.3) gm/dl Albumin 4.5 (3.4-5.0) gm/dl Globulin 2.7 (2.5-4.0) gm/dl Albumin/Globulin Ratio 1.7 (0.9-2) Vitamin B12 160 L (180-914) pg/ml Folate 18.62 (>5.38) ng/ml Procalcitonin < 0.02 (0-0.5) ng/ml TSH 2.547 (0.300-4.500) uIu/ml Salicylates < 3.0 L (3.0-30) mg/dl Acetaminophen < 3 L (10-30) ug/ml Ethyl Alcohol mg/dL < 10.0 (<10.0) mg/dl 08/25/23 Range/Units 04:50 WBC (4.8-10.8) K/ul RBC (4.70-6.10) M/uL Hgb (14.0-18.0) g/dl Hct (42.0-52.0) % MCV (80.0-100.0) fL MCH (25.0-34.0) pg MCHC (32.0-36.0) g/dL RDW Std Deviation (36.4-46.3) fL RDW Coeff of Liz (11.5-14.5) % Plt Count (130-400) K/uL MPV (9.4-12.4) fL Immature Gran % (Auto) % Neut % (Auto) % Lymph % (Auto) % [place] % (Auto) % Eos % (Auto) % Baso % (Auto) % Neut # (Auto) (1.40-6.50) K/uL Lymph # (Auto) (1.20-3.40) K/uL [place] # (Auto) (0.11-0.59) K/uL Eos # (Auto) (0.00-0.50) K/uL Baso # (Auto) (0.00-0.20) K/uL Immature Gran # (Auto) (0.01-0.20) K/uL ESR (0-15) mm/hr PT (9.0-12.0) Seconds INR (0.9-1.1) APTT (21-31) Seconds PTT Ratio Sodium (136-145) mmol/L Potassium (3.5-5.1) mmol/L Chloride (98-107) mmol/L Carbon Dioxide (21-32) mmol/L Anion Gap (3-11) BUN (6-23) mg/dl Creatinine (0.6-1.4) mg/dl Est Cr Clr Drug Dosing ml/min Est GFR ( Amer) ml/min Est GFR (Non-Af Amer) ml/min BUN/Creatinine Ratio (10-20) Glucose (70-99(Fasting)) mg/dl POC Glucose (70-99) mg/dl Lactate (0.4-2.0) mmol/L Calcium (8.6-10.3) mg/dl Total Bilirubin (0.2-1.0) mg/dl AST (13-39) U/L ALT (7-52) U/L Alkaline Phosphatase (34-104) U/L Troponin I High Sens 35.4 H (0-20) pg/ml Total Protein (6.0-8.3) gm/dl Albumin (3.4-5.0) gm/dl Globulin (2.5-4.0) gm/dl Albumin/Globulin Ratio (0.9-2) Vitamin B12 (180-914) pg/ml Folate (>5.38) ng/ml Procalcitonin (0-0.5) ng/ml TSH (0.300-4.500) uIu/ml Salicylates (3.0-30) mg/dl Acetaminophen (10-30) ug/ml Ethyl Alcohol mg/dL (<10.0) mg/dl Administered Medications Potassium Chloride/Sodium Chloride (Normal Saline W/20 Meq Kcl) 20 meq in 1,000 mls @ 100 mls/hr IV .Q10H NEAL; Protocol Stop: 08/25/23 16:14 Last Admin: 08/25/23 06:12 Dose: 100 mls/hr Documented By: MELISSA Discontinued Medications Sodium Chloride (Nss) 500 mls @ 999 mls/hr IV .Q31M ONE Stop: 08/25/23 03:06 Last Infusion: 08/25/23 03:17 Dose: Infused Documented By: Admin: 08/25/23 02:45 Dose: 999 mls/hr Documented By: MELISSA Sodium Chloride (Nss) 500 mls @ 999 mls/hr IV .Q31M ONE Stop: 08/25/23 04:23 Last Infusion: 08/25/23 04:47 Dose: Infused Documented By: Admin: 08/25/23 04:16 Dose: 999 mls/hr Documented By: MELISSA Metoprolol Succinate (Metoprolol Succ 50mg Ext Rel Tab) 50 mg PO NOW STA Stop: 08/25/23 06:06 Last Admin: 08/25/23 06:16 Dose: 50 mg Documented By: MELISSA Metoprolol Tartrate (Metoprolol Tartrate 1 Mg/Ml Vial) 5 mg IV NOW STA Stop: 08/25/23 05:04 Last Admin: 08/25/23 05:22 Dose: 5 mg Documented By: RONALD Imaging Data Radiologist's Impression: Head CT 08/25/23 02:36 Exam(s): CT HEAD Without Contrast EXAM: CT Head Without Intravenous Contrast CLINICAL HISTORY: Reason for exam: Altered mental status. TECHNIQUE: Axial computed tomography images of the head/brain without intravenous contrast. CTDI is 35.37 mGy and DLP is 625.8 mGy-cm. Automated exposure control was utilized for the study. A dose lowering technique was utilized adhering to the principles of ALARA. COMPARISON: No relevant prior studies available. FINDINGS: Brain: Unremarkable. No hemorrhage. No significant white matter disease. No edema. There is a tiny colloid cyst at the foramen of Monro measuring 3.8 x 3.8 mm. Ventricles: Unremarkable. No ventriculomegaly. Bones/joints: Unremarkable. No acute fracture. Soft tissues: Unremarkable. Sinuses: Unremarkable as visualized. No acute sinusitis. Mastoid air cells: Unremarkable as visualized. No mastoid effusion. IMPRESSION: No evidence of acute intracranial pathology. Tiny colloid cyst at the foramen on measuring 3.8 x 3.8 mm without evidence of obstructive hydrocephalus at this time. Electronically signed by: Silvia Moscoso MD 08/25/23 04:08 AM Discharge Plan Visit Data Chief Complaint: Alcohol Intoxication Stated Complaint: ETOH ED Provider: Harlodo Mccarthy ED Midlevel Provider: Hortencia Huynh Discharge Problem: Acute alteration in mental status, Elevated troponin, Colloid cyst of brain Patient Disposition: Admitted As Inpatient Condition: Good Discharge Instructions Interventions: ED Discharge Assessment Last Done: 08/25/23 07:44
[2023-08-25] MEDS: SODIUM CHLORIDE 0.9% 500 ML IV ONE ×2 (02:45→04:16)
[2023-08-25 03:18] LABS: Albumin Globulin Ratio 1.7 (0.9-2); Albumin Level 4.5 gm/dl (3.4-5.0); Bilirubin,Total 0.3 mg/dl (0.2-1.0); Calcium 8.9 mg/dl (8.6-10.3); Creatinine Clr Calc Pharmacy 73.4 ml/min; Est GFR (Non-African American) 71.6 ml/min; Globulin 2.7 gm/dl (2.5-4.0); Potassium 3.4 mmol/L (3.5-5.1); Total Protein 7.2 gm/dl (6.0-8.3)
[2023-08-25 03:29] LABS: Basophils # (auto) 0.06 K/uL (0.00-0.20); Basophils % (auto) 0.5 %; Eosinophils # (auto) 0.06 K/uL (0.00-0.50); Eosinophils % (auto) 0.5 %; Immature Granulocytes # (auto) 0.03 K/uL (0.01-0.20); Immature Granulocytes % (auto) 0.3 %; Lymphocytes # (auto) 0.68 K/uL (1.20-3.40); Lymphocytes % (auto) 6.1 %; Mean Corpuscular Hemoglobin 29.7 pg (25.0-34.0); Mean Corpuscular Hgb Conc 34.2 g/dL (32.0-36.0); Mean Platelet Volume 10.8 fL (9.4-12.4); Monocytes # (auto) 0.54 K/uL (0.11-0.59); Monocytes % (auto) 4.8 %; Neutrophils # (auto) 9.82 K/uL (1.40-6.50); Neutrophils % (auto) 87.8 %; Platelet Count 222 K/uL (130-400); RDW Coefficient of Variation 13.5 % (11.5-14.5); RDW Standard Deviation 42.6 fL (36.4-46.3); Red Blood Count 4.37 M/uL (4.70-6.10); White Blood Count 11.19 K/ul (4.8-10.8)
[2023-08-25 03:33] LABS: Thyroid Stimulating Hormone 2.547 uIu/ml (0.300-4.500)
[2023-08-25 03:37] LABS: Partial Thromboplastin Ratio 0.9; Partial Thromboplastin Time 24 Seconds (21-31); Prothrombin Time 10.9 Seconds (9.0-12.0)
[2023-08-25 03:44] LABS: Acetaminophen < 3 ug/ml (10-30); Salicylate < 3.0 mg/dl (3.0-30)
--- NOTE | 2023-08-25 04:08 | CT Scan Report ---
Exam(s): CT HEAD Without Contrast EXAM: CT Head Without Intravenous Contrast CLINICAL HISTORY: Reason for exam: Altered mental status. TECHNIQUE: Axial computed tomography images of the head/brain without intravenous contrast. CTDI is 35.37 mGy and DLP is 625.8 mGy-cm. Automated exposure control was utilized for the study. A dose lowering technique was utilized adhering to the principles of ALARA. COMPARISON: No relevant prior studies available. FINDINGS: Brain: Unremarkable. No hemorrhage. No significant white matter disease. No edema. There is a tiny colloid cyst at the foramen of Monro measuring 3.8 x 3.8 mm. Ventricles: Unremarkable. No ventriculomegaly. Bones/joints: Unremarkable. No acute fracture. Soft tissues: Unremarkable. Sinuses: Unremarkable as visualized. No acute sinusitis. Mastoid air cells: Unremarkable as visualized. No mastoid effusion. IMPRESSION: No evidence of acute intracranial pathology. Tiny colloid cyst at the foramen on measuring 3.8 x 3.8 mm without evidence of obstructive hydrocephalus at this time. Electronically signed by: Silvia Moscoso MD 08/25/23 04:08 AM
[2023-08-25 04:40] LABS: Troponin I High Sensitivity 27.9 pg/ml (0-20)
[2023-08-25 05:16] LABS: Appearance Urine Clear (Clear); Bilirubin Urine Negative (Negative); Blood Urine Negative (Negative); Color Urine Yellow; Glucose Urine UA Negative (Negative); Ketones Urine Negative (Negative); Leukocyte Esterase Urine Negative (Negative); Nitrite Urine Negative (Negative); Protein Urine Negative (Negative); Specific Gravity Urine 1.019 (1.000-1.030); Urobilinogen Urine Negative (Negative); pH Urine 5.5 (4.5-7.5)
[2023-08-25] MEDS: METOPROLOL TARTRATE 1 MG/ML VIAL IV STA (05:22)
[2023-08-25 05:41] LABS: Amphetamines+Metham, Urine Neg (Neg); Barbiturates, Urine Neg (Neg); Benzodiazepine, Urine Neg (Neg); Cocaine, Urine Neg (Neg); Fentanyl, Urine Neg (Neg); MDMA (Ecstacy), Urine Neg (Neg); Marijuana, Urine Pos (Neg); Methadone, Urine Neg (Neg); Opiate, Urine Neg (Neg); Phencyclidine, Urine Neg (Neg)
[2023-08-25 05:50] LABS: Adenovirus PCR Not Detected (NotDetected); Bordetella parapertussis PCR Not Detected (NotDetected); Bordetella pertussis PCR Not Detected (NotDetected); Chlamydia pneumoniae PCR Not Detected (NotDetected); Coronavirus 229E PCR Not Detected (NotDetected); Coronavirus CoV-2 (COVID19)PCR Not Detected (NotDetected); Coronavirus HKU1 PCR Not Detected (NotDetected); Coronavirus NL63 PCR Not Detected (NotDetected); Coronavirus OC43PCR Not Detected (NotDetected); Human Metapneumovirus PCR Not Detected (NotDetected); Influenza A PCR Not Detected (NotDetected); Influenza B PCR Not Detected (NotDetected); Mycoplasma pneumoniae PCR Not Detected (NotDetected); Parainfluenza Virus 1 PCR Not Detected (NotDetected); Parainfluenza Virus 2 PCR Not Detected (NotDetected); Parainfluenza Virus 3 PCR Not Detected (NotDetected); Parainfluenza Virus 4 PCR Not Detected (NotDetected); Respiratory Syncytial VirusPCR Not Detected (NotDetected); Rhinovirus/Enterovirus PCR Not Detected (NotDetected)
--- NOTE | 2023-08-25 06:09 | History & Physical Report ---
Date of Service August 25, 2023 Assessment & Plan (1) Elevated blood pressure reading without diagnosis of hypertension: (2) Polysubstance abuse: (3) NSTEMI (non-ST elevated myocardial infarction): (4) Elevated troponin: (5) Tachycardia: (6) Confusion: Plan NSTEMI/elevated troponin/elevated blood pressure without diagnosis of hypertension- The patient will be admitted to telemetry for serial cardiac enzymes, serial EKG's, cardiac rhythm monitoring and a 2-D echocardiogram with Dopplers. Troponin initially 27.9, with follow-up 35.4 When patient was admitted on 11/29/2020, he was also found to have an elevated blood pressure without diagnosis of hypertension at that time as well, was placed on medications at that time, and was evidently lost to follow-up in the outpatient setting Start metoprolol succinate 50 mg p.o. 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 He became confused while he was at [facility], which he attributes to a long day, and police were contacted and brought him to the emergency department for assessment. Polysubstance abuse history Urine drug screen is only positive for marijuana Marijuana intoxication could certainly be responsible for or contributing to his confusion symptoms Alcohol level was negative, but patient does not show active signs of alcohol withdrawal, and denies any recent use of alcohol BioFire testing negative History of Present Illness Chief Complaint: The patient presents to the emergency department due to being found at [facility] in a state of confusion, with somewhat agitated calling the police, they brought the patient to the emergency department for assessment Primary Care Provider: MER Combs The patient is a 38-year-old male with a past medical history eluding elevated blood pressure reading without diagnosis of hypertension, history of polysubstance abuse, history of dextromethorphan overdose, NSTEMI, sialoadenitis of submandibular gland, depression, cocaine abuse and marijuana use. As part of his workup, he underwent laboratories showing potassium 3.4, troponin initially 27.9 with follow-up 35.4, and urine drug screen positive for marijuana. 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 Patient was referred to the hospitalist service for further assessment. Allergies Allergy/AdvReac Type Severity Reaction Status Date / Time No Known Allergies Allergy Verified 11/29/20 02:05 Home Medications Medication Instructions Recorded Confirmed Type ibuprofen 200 mg tablet (Advil) 400 mg PO Q6H PRN headache/pain 11/29/20 11/29/20 History Past Med/Surg History Problem List (Updated 08/25/23 @ 06:27 by Aram Armendariz MD) Confusion Elevated blood pressure reading without diagnosis of hypertension Tachycardia (Acute) Polysubstance abuse Dextromethorphan overdose (Acute) NSTEMI (non-ST elevated myocardial infarction) (Acute) Elevated troponin (Acute) Neck infection (Acute) Sialoadenitis of submandibular gland Ludwigs angina Impetigo (Acute) Depression (Chronic) Alcohol withdrawal Depression (Acute) Drug overdose, intentional (Acute) Mood disorder (Acute) Overdose (Acute) Overdose (Acute) Surgical History History of dental surgery No pertinent past surgical history Social History Smoking Status: Current every day smoker Tobacco Type: Cigarettes and E-cigarettes / Vaping Cigarettes Per Day: 10; Second Hand Exposure: Yes; Do You Dip or Chew Tobacco: No; Hx Alcohol Use: Yes Alcohol type: beer Hx Substance Use: No Preferred Language: Italian Communication Ability: Effective Able Bodied Watchman Required: No Beliefs That Will Affect Care: None Current Living Situation: Alone Current Living Situation Comment: [place] Feels Safe at Home: Yes Assistive Devices: None Review of Systems Review of Systems: The patient denies chest pain, palpitations, shortness of breath, dyspnea on exertion, cough, lower extremity swelling, sore throat, fevers, chills, sweats, weight change, fatigue, nausea, vomiting, diarrhea , constipation, abdominal pain, pelvic pain, blood in urine or stool, dysuria, urinary frequency or urgency, lightheadedness, dizziness, loss of consciousness, rash, abnormal bruising or bleeding, imbalance, focal or generalized weakness, numbness or tingling in arms or legs, generalized arthralgias or myalgias, back or neck pain, or night sweats. The review of systems is otherwise negative other than for that already noted above, and at least 10 systems have been reviewed. Physical Exam Physical Exam: The patient is awake, mildly confused, well developed and well nourished, normocephalic and atraumatic, lying in bed and in no acute distress. HEENT--PERRL, EOMI, mucous membranes and oropharynx mildly dry. Neck--supple. No JVD. No bruits. Thyroid normal, trachea midline, no adenopathy. Heart--normal S1 and S2. No murmurs, rubs or gallops. Lungs--clear bilaterally, no respiratory distress, no accessory muscle use. Abdomen--normal bowel sounds and soft. Nontender. Nondistended, no hernias or masses, no organomegaly. Extremities--no cyanosis or clubbing. No edema. There are good distal pulses b/l. Dermatologic--normal skin turgor, normal color, no abnormal lymph nodes, no rash. Neurologic--cranial nerves II through XII grossly intact. Rheumatologic--normal range of motion. Psychiatric--told his day today and the long story, for which he apologized several times Results & Data Results & Data Vital Signs (Past 12 Hours) Vital Signs Temp Pulse Resp BP Pulse Ox O2 Del Method 08/25/23 06:06 90 19 160/108 H 98 Room Air 08/25/23 05:30 84 21 181/120 H 96 Room Air 08/25/23 05:22 97 H 172/114 H 08/25/23 04:19 94 H 20 181/135 H 95 Room Air 08/25/23 03:09 98 H 22 170/106 H 96 Room Air 08/25/23 02:38 37.2 C 105 H 16 175/107 H 94 Room Air 08/25/23 02:31 109 H Laboratory Results Laboratory Results WBC 11.19 K/ul (4.8-10.8) H 08/25/23 02:40 RBC 4.37 M/uL (4.70-6.10) L 08/25/23 02:40 Hgb 13.0 g/dl (14.0-18.0) L 08/25/23 02:40 Hct 38.0 % (42.0-52.0) L 08/25/23 02:40 MCV 87.0 fL (80.0-100.0) 08/25/23 02:40 MCH 29.7 pg (25.0-34.0) 08/25/23 02:40 MCHC 34.2 g/dL (32.0-36.0) 08/25/23 02:40 RDW Std Deviation 42.6 fL (36.4-46.3) 08/25/23 02:40 RDW Coeff of Liz 13.5 % (11.5-14.5) 08/25/23 02:40 Plt Count 222 K/uL (130-400) 08/25/23 02:40 MPV 10.8 fL (9.4-12.4) 08/25/23 02:40 Immature Gran % (Auto) 0.3 % 08/25/23 02:40 Neut % (Auto) 87.8 % 08/25/23 02:40 Lymph % (Auto) 6.1 % 08/25/23 02:40 [place] % (Auto) 4.8 % 08/25/23 02:40 Eos % (Auto) 0.5 % 08/25/23 02:40 Baso % (Auto) 0.5 % 08/25/23 02:40 Neut # (Auto) 9.82 K/uL (1.40-6.50) H 08/25/23 02:40 Lymph # (Auto) 0.68 K/uL (1.20-3.40) L 08/25/23 02:40 Haralson # (Auto) 0.54 K/uL (0.11-0.59) 08/25/23 02:40 Eos # (Auto) 0.06 K/uL (0.00-0.50) 08/25/23 02:40 Baso # (Auto) 0.06 K/uL (0.00-0.20) 08/25/23 02:40 Immature Gran # (Auto) 0.03 K/uL (0.01-0.20) 08/25/23 02:40 PT 10.9 Seconds (9.0-12.0) 08/25/23 02:40 INR 1.0 (0.9-1.1) 08/25/23 02:40 APTT 24 Seconds (21-31) 08/25/23 02:40 PTT Ratio 0.9 08/25/23 02:40 Sodium 140 mmol/L (136-145) 08/25/23 02:40 Potassium 3.4 mmol/L (3.5-5.1) L 08/25/23 02:40 Chloride 107 mmol/L (98-107) 08/25/23 02:40 Carbon Dioxide 26 mmol/L (21-32) 08/25/23 02:40 Anion Gap 7 (3-11) 08/25/23 02:40 BUN 15 mg/dl (6-23) 08/25/23 02:40 Creatinine 1.25 mg/dl (0.6-1.4) 08/25/23 02:40 Est Cr Clr Drug Dosing 73.4 ml/min 08/25/23 02:40 Est GFR ( Amer) 83.0 ml/min 08/25/23 02:40 Est GFR (Non-Af Amer) 71.6 ml/min 08/25/23 02:40 BUN/Creatinine Ratio 12.0 (10-20) 08/25/23 02:40 Glucose 105 mg/dl (70-99(Fasting)) H 08/25/23 02:40 POC Glucose 113 mg/dl (70-99) H 08/25/23 02:46 Lactate 1.4 mmol/L (0.4-2.0) 08/25/23 04:10 Calcium 8.9 mg/dl (8.6-10.3) 08/25/23 02:40 Total Bilirubin 0.3 mg/dl (0.2-1.0) 08/25/23 02:40 AST 20 U/L (13-39) 08/25/23 02:40 ALT 14 U/L (7-52) 08/25/23 02:40 Alkaline Phosphatase 62 U/L (34-104) 08/25/23 02:40 Troponin I High Sens 35.4 pg/ml (0-20) H 08/25/23 04:50 Total Protein 7.2 gm/dl (6.0-8.3) 08/25/23 02:40 Albumin 4.5 gm/dl (3.4-5.0) 08/25/23 02:40 Globulin 2.7 gm/dl (2.5-4.0) 08/25/23 02:40 Albumin/Globulin Ratio 1.7 (0.9-2) 08/25/23 02:40 Procalcitonin < 0.02 ng/ml (0-0.5) 08/25/23 02:40 TSH 2.547 uIu/ml (0.300-4.500) 08/25/23 02:40 Urine Color Yellow 08/25/23 Unknown Urine Appearance Clear (Clear) 08/25/23 Unknown Urine pH 5.5 (4.5-7.5) 08/25/23 Unknown Ur Specific [place] 1.019 (1.000-1.030) 08/25/23 Unknown Urine Protein Negative (Negative) 08/25/23 Unknown Urine Glucose (UA) Negative (Negative) 08/25/23 Unknown Urine Ketones Negative (Negative) 08/25/23 Unknown Urine Blood Negative (Negative) 08/25/23 Unknown Urine Nitrite Negative (Negative) 08/25/23 Unknown Urine Bilirubin Negative (Negative) 08/25/23 Unknown Urine Urobilinogen Negative (Negative) 08/25/23 Unknown Ur Leukocyte Esterase Negative (Negative) 08/25/23 Unknown Salicylates < 3.0 mg/dl (3.0-30) L 08/25/23 02:40 Urine Opiates Screen Neg (Neg) 08/25/23 Unknown Ur Methadone, Qual Neg (Neg) 08/25/23 Unknown Urine Fentanyl Screen Neg (Neg) 08/25/23 Unknown Acetaminophen < 3 ug/ml (10-30) L 08/25/23 02:40 Urine Barbiturates Neg (Neg) 08/25/23 Unknown Ur Phencyclidine (PCP) Neg (Neg) 08/25/23 Unknown U Amphetamin/Meth Scrn Neg (Neg) 08/25/23 Unknown MDMA (Ecstasy) Screen Neg (Neg) 08/25/23 Unknown U Benzodiazepines Scrn Neg (Neg) 08/25/23 Unknown Ur Cocaine Metabolite Neg (Neg) 08/25/23 Unknown U Marijuana (THC) Screen Pos (Neg) H 08/25/23 Unknown Ethyl Alcohol mg/dL < 10.0 mg/dl (<10.0) 08/25/23 02:40 Adenovirus (PCR) Not Detected (NotDetected) 08/25/23 Unknown B. pertussis DNA (PCR) Not Detected (NotDetected) 08/25/23 Unknown B.parapertussis DNA PCR Not Detected (NotDetected) 08/25/23 Unknown C. pneumoniae DNA (PCR) Not Detected (NotDetected) 08/25/23 Unknown Coronavirus OC43 (PCR) Not Detected (NotDetected) 08/25/23 Unknown Coronavirus HKU1 (PCR) Not Detected (NotDetected) 08/25/23 Unknown Coronavirus 229E (PCR) Not Detected (NotDetected) 08/25/23 Unknown SARS-CoV-2 (PCR) Not Detected (NotDetected) 08/25/23 Unknown Coronavirus NL63 (PCR) Not Detected (NotDetected) 08/25/23 Unknown Human Metapneumovir PCR Not Detected (NotDetected) 08/25/23 Unknown Influenza Type A (PCR) Not Detected (NotDetected) 08/25/23 Unknown Influenza Type B (PCR) Not Detected (NotDetected) 08/25/23 Unknown M. pneumoniae (PCR) Not Detected (NotDetected) 08/25/23 Unknown Parainfluenza 1 (PCR) Not Detected (NotDetected) 08/25/23 Unknown Parainfluenza 2 (PCR) Not Detected (NotDetected) 08/25/23 Unknown Parainfluenza 3 (PCR) Not Detected (NotDetected) 08/25/23 Unknown Parainfluenza 4 (PCR) Not Detected (NotDetected) 08/25/23 Unknown RSV (PCR) Not Detected (NotDetected) 08/25/23 Unknown Entero/Rhino (PCR) Not Detected (NotDetected) 08/25/[address] 08/25/23 02:36 Exam(s): CT HEAD Without Contrast EXAM: CT Head Without Intravenous Contrast CLINICAL HISTORY: Reason for exam: Altered mental status. TECHNIQUE: Axial computed tomography images of the head/brain without intravenous contrast. CTDI is 35.37 mGy and DLP is 625.8 mGy-cm. Automated exposure control was utilized for the study. A dose lowering technique was utilized adhering to the principles of ALARA. COMPARISON: No relevant prior studies available. FINDINGS: Brain: Unremarkable. No hemorrhage. No significant white matter disease. No edema. There is a tiny colloid cyst at the foramen of Monro measuring 3.8 x 3.8 mm. Ventricles: Unremarkable. No ventriculomegaly. Bones/joints: Unremarkable. No acute fracture. Soft tissues: Unremarkable. Sinuses: Unremarkable as visualized. No acute sinusitis. Mastoid air cells: Unremarkable as visualized. No mastoid effusion. IMPRESSION: No evidence of acute intracranial pathology. Tiny colloid cyst at the foramen on measuring 3.8 x 3.8 mm without evidence of obstructive hydrocephalus at this time. Electronically signed by: Silvia Moscoso MD 08/25/23 04:08 AM Code Status & VTE Plan Code Status Full code VTE Prophylaxis Plan VTE Prophylaxis will be ordered: Yes PG Care Time/CCT Total # of Minutes Spent Total Time Spent with Patient: Total time spent is greater than 50% in coordination of care (as documented) at patient's floor/unit and/or counseling patient: Coding Level of Care Code 48584 INT INP/OBS CARE 3/75MIN Diagnoses Elevated blood pressure reading without diagnosis of hypertension R03.0 Polysubstance abuse F19.10 NSTEMI (non-ST elevated myocardial infarction) I21.4 Elevated troponin R77.8 Tachycardia R00.0 Confusion R41.0
[2023-08-25] MEDS: NSS + 20MEQ KCL 20 MEQ/1,000 ML BAG IV SCH (06:12)
[2023-08-25] MEDS: METOPROLOL SUCC 50MG EXT REL TAB PO STA (06:16)
--- NOTE | 2023-08-25 07:25 | Electrocardiogram Report ---
Test Reason : Blood Pressure : / mmHG Vent. Rate : 094 BPM Atrial Rate : 094 BPM P-R Int : 144 ms QRS Dur : 100 ms QT Int : 380 ms P-R-T Axes : 036 019 076 degrees QTc Int : 476 ms Normal sinus rhythm Prolonged QT Abnormal ECG Confirmed by Bryce Boothe ([id number]) on 08/25/2023 7:24:59 AM Referred By: REFERRED SELF Confirmed By:Westley Boothe
[2023-08-25 07:33] LABS: Folate (Folic Acid),Ser orPlas 18.62 ng/ml (>5.38)
[2023-08-25] MEDS ORDERED: ACETAMINOPHEN 325 MG TAB PO PRN (07:43)
[2023-08-25] MEDS ORDERED: ONDANSETRON INJ 2 MG/ML 2 ML VIAL IV PRN (07:43)
--- NOTE | 2023-08-25 08:07 | XRay Report ---
XR chest 1V portable HISTORY: 38 years-old Male change in mental status acutely altered mental status COMPARISON: 12/31/2019 TECHNIQUE: AP view of the chest FINDINGS: Cardiomediastinal and hilar silhouettes are within normal limits. No pneumothorax, pleural effusion, airspace consolidation or pulmonary edema. Bones appear grossly intact. IMPRESSION: No acute process. ACT 112: Negative or not required by law. The above report was generated using voice recognition software. It may contain grammatical, syntax o r spelling errors. Electronically signed by: Nikita Jose M.D. 08/25/2023 8:05 AM
[2023-08-25] MEDS: ASPIRIN 81 MG CHEW ONE (09:27)
[2023-08-25] MEDS: GADOBUTROL 30ML VIAL IV ONE (10:07)
--- NOTE | 2023-08-25 10:56 | Magnetic Resonance Report ---
MR brain wo/w con HISTORY: 38 years-old Male abnormal CT, confusion acutely altered mental status COMPARISON: Head CT of same day TECHNIQUE: Multiplanar multisequence MRI of the brain was obtained with and without IV contrast. FINDINGS: No restricted diffusion to suggest acute or subacute infarct. 4 mm choroid plexus versus colloid cyst of the third ventricle seen by CT is redemonstrated on image 14 series 5 demonstrating intermediate T1 and T2 signal without enhancement. Cerebral venous sinuses and major arterial flow voids appear pa tent. The skull, orbits and soft tissues are unremarkable. Partially empty sella. Mastoid air cells a nd paranasal sinuses are clear. No acute intracranial hemorrhage, midline shift, abnormal extra-axial collection, hydrocephalus or in tra-axial mass. Normal volume and signal of the brain parenchyma. No pathologic blooming artifact. No abnormal enhancement. IMPRESSION: 1. No acute intracranial abnormality. No acute or subacute infarct. 2. 4 mm ovoid structure within the third ventricle is unchanged dating back to the head CT from 2023 and may represent a small colloid cyst versus normal choroid plexus. 3. No hydrocephalus. ACT 112: Negative or not required by law. The above report was generated using voice recognition software. It may contain grammatical, syntax o r spelling errors. Electronically signed by: Nikita Jose M.D. 08/25/2023 10:53 AM
[2023-08-25] MEDS: ASPIRIN 81 MG ECTAB PO SCH (11:07)
[2023-08-25] MEDS: hydrALAZINE HCL 20 MG/ML VIAL IV ONE (11:08)
[2023-08-25] MEDS: CYANOCOBALAMIN 1000 MCG/ML VIAL IM SCH (13:22)
[2023-08-25] MEDS: hydrALAZINE HCL 20 MG/ML VIAL IV PRN (14:52)
[2023-08-25 15:12] LABS: BUN Creatinine Ratio 11.3 (10-20); Calcium 8.6 mg/dl (8.6-10.3); Est GFR (African American) 83.8 ml/min; Est GFR (Non-African American) 72.3 ml/min; Potassium 3.5 mmol/L (3.5-5.1)
--- NOTE | 2023-08-25 15:48 | History & Physical Bridge Note ---
Date of Service August 25, 2023 History & Physical Bridge Note I have examined the patient, reviewed the History & Physical and in the interval since the performance of the History & Physical I have noted the following changes of clinical significance: no changes noted Patient remaining AOx3, eval in room 237, laying in bed. Reports he did take some Delsym yesterday for cough in setting of medical marijuana vape but "not to mess himself up" and had a long day of car struggles and frustrations leading to his agitation. Tolerating diet. No fever/chills, chest pain, abdominal pain, nausea. VSS exception of BP to 182/136. GIven metoprolol 50mg PO this morning as well as baby aspirin 81mg. Patient reporting he has BP measurement device at home but reports hasn't used in a while and not on BP medication at baseline. +Hydralazine added prn IVF to be discontinued. BUN/Cr 14/1.24, tolerating diet. K 3.5 on repeat. Trop minimal elevation, suspect demand ischemia 2nd to HTN. Trop 35.4--> 37.7--> 34.8, denies CP at this time. continue to monitor on telemetry UDS + marijuana, alcohol negative. Tylenol level not elevated. CT head IMPRESSION: No evidence of acute intracranial pathology.Tiny colloid cyst at the foramen on measuring 3.8 x 3.8 mm without evidence of obstructive hydrocephalus at this time. MRI brain IMPRESSION: 1. No acute intracranial abnormality. No acute or subacute infarct. 2. 4 mm ovoid structure within the third ventricle is unchanged dating back to the head CT from 04/07/2023 and may represent a small colloid cyst versus normal choroid plexus. 3. No hydrocephalus. MRI UNCHANGED from prior, can arrange outpt f/u B12 check was LOW at 160 --> IM replacement ordered and should be on PO at dc Discussed monitoring BP/status overnight but if stable/improvement w/ medications coming out of his system can consider dc tomorrow. Supervising Physician Co-Signing Physician Notes The patient was not seen by me. The chart was reviewed. Case discussed with ERICA Mirza. Agree with assessment and plan
--- NOTE | 2023-08-25 17:35 | XCELERA ---
[id number]
--- NOTE | 2023-08-25 17:54 | Electrocardiogram Report ---
Test Reason : Blood Pressure : / mmHG Vent. Rate : 078 BPM Atrial Rate : 078 BPM P-R Int : 154 ms QRS Dur : 098 ms QT Int : 442 ms P-R-T Axes : 031 024 090 degrees QTc Int : 503 ms Normal sinus rhythm Nonspecific T wave abnormality Prolonged QT Abnormal ECG When compared with ECG of 25-AUG-2023 04:57, No significant change was found Confirmed by Bryce Boothe ([id number]) on 08/25/2023 5:54:32 PM Referred By: REFERRED SELF Confirmed By:Westley Boothe
[2023-08-26 07:11] LABS: Basophils # (auto) 0.06 K/uL (0.00-0.20); Basophils % (auto) 0.9 %; Eosinophils # (auto) 0.36 K/uL (0.00-0.50); Eosinophils % (auto) 5.2 %; Hematocrit (blood only) 43.6 % (42.0-52.0); Immature Granulocytes # (auto) 0.01 K/uL (0.01-0.20); Immature Granulocytes % (auto) 0.1 %; Lymphocytes % (auto) 15.9 %; Mean Corpuscular Hemoglobin 30.1 pg (25.0-34.0); Mean Corpuscular Hgb Conc 34.4 g/dL (32.0-36.0); Mean Corpuscular Volume 87.4 fL (80.0-100.0); Mean Platelet Volume 11.3 fL (9.4-12.4); Monocytes # (auto) 0.55 K/uL (0.11-0.59); Monocytes % (auto) 7.9 %; Neutrophils # (auto) 4.84 K/uL (1.40-6.50); Platelet Count 233 K/uL (130-400); RDW Coefficient of Variation 13.8 % (11.5-14.5); RDW Standard Deviation 44.5 fL (36.4-46.3); Red Blood Count 4.99 M/uL (4.70-6.10); White Blood Count 6.92 K/ul (4.8-10.8)
[2023-08-26 07:43] LABS: BUN Creatinine Ratio 19.7 (10-20); Calcium 8.9 mg/dl (8.6-10.3); Chol HDL Ratio 4.4 (0-5); Creatinine Clr Calc Pharmacy 120.8 ml/min; Est GFR (African American) 132.3 ml/min; Est GFR (Non-African American) 114.1 ml/min; Phosphorus 2.3 mg/dl (2.5-4.9); Potassium 3.4 mmol/L (3.5-5.1)
--- NOTE | 2023-08-26 07:43 | Hospitalist Progress Note ---
Date of Service August 26, 2023 Assessment & Plan (1) NSTEMI (non-ST elevated myocardial infarction): Plan: - Initially admitted 2nd to AMS/confusion after agitation w/ chip mucker following car troubles/transportation and taking bottle of Delsym (initially denied, then said 1/2 bottle, then today reporting drank whole bottle. has had issues w/ this in the past) however mentation clear and AOx3, and denied any SI/HI at this time. CT/MRI of brain WITHOUT evidence for acute CVA, suspect TIA/drug use contributed to confusion and rec to avoid. NSTEMI/elevated troponin/elevated blood pressure without diagnosis of hypertension * (however actually does have hx elevated BP/to be on metoprolol/lisinopril following prior NSTEMI and apparently lost to follow up despite reporting to me he does see his PCP) ECHOCARDIOGRAM w/ -Left ventricular systolic function is moderately reduced (EF 30-35%) There is moderate global hypokinesis of the left ventricle. Mild aortic regurgitation. Mild mitral regurgitation. RVSP is elevated at 40-50mmHg. Mild aortic root dilatation. Started on metoprolol succinate 50mg daily, aspirin 81mg, continued BPs w/ SIGNIFICANT improvement 148/87 Trop 27.9--> 35.4 --> 37.7 and trended down on repeat w/ improvement in BP control to 34.8. HOWEVER, given ECHO findings--> consultation placed for cardiology to consider further evaluation will add lisinopril 5mg daily -Hydralazine available prn Lipid panel checked given prior statin therapy -- Cholesterol elevated to 225, LDL 152. HDL 51. TRG 109 - Added lipitor 40mg PO daily for now given prior myalgias reported A1c not elevated, 4.7 Continue telemetry monitoring for now (has been NSR). Denies CP at present but EKG to be obtained if occurs Hopeful dc in AM w/ outpatient follow up (2) Elevated troponin: Plan: suspect demand ischemia from significant HTN and improvement w/ BP control and denied CP however ECHO as above and cards consult placed EKG w/ CP, tele monitoring continue asa 81 daily, metoprolol, added lisinopril given echo and cholesterol labs adding statin and consider increasing to 80 if tolerating but reported issues w/ myalgias int he past (3) Polysubstance abuse: Plan: as above, smoking and cough syrup use UDS + marijuana, alcohol negative. Tylenol level not elevated. CT head IMPRESSION: No evidence of acute intracranial pathology.Tiny colloid cyst at the foramen on measuring 3.8 x 3.8 mm without evidence of obstructive hydrocephalus at this time. MRI brain IMPRESSION: 1. No acute intracranial abnormality. No acute or subacute infarct. 2. 4 mm ovoid structure within the third ventricle is unchanged dating back to the head CT from 04/07/2023 and may represent a small colloid cyst versus normal choroid plexus. 3. No hydrocephalus. MRI UNCHANGED from prior, can arrange outpt f/u can consider liason consult if needed but AOx3 and cooperative at this time and denied SI/HI. Rec to avoid cough syrup/marijauna and outpt psych f/u rec (4) Tachycardia: Plan: 2nd to medication use/confusion/agitation w/ polive (5) Confusion: Plan: back to baseline WBC normalized/afebrile. tx as above (6) Elevated blood pressure reading without diagnosis of hypertension: Plan: IMPROVED, see med changes as above (7) B12 deficiency: Plan: checked due to confusion, ?prior alcohol use. Denied current use, alcohol level not elevated on admission. TSH wnl but B12 LOW @ 160--> IM replacement ordered and should be on PO at dc (8) Colloid cyst of brain: Plan: as noted above, outpt f/u (9) HLD (hyperlipidemia): Plan: as above, cholesterol panel w/ elevated cholesterol to 225/LDL 152 and lipitor restarted as taking prior but at lower dose given myalgias but ideally be on 80mg daily. could consider switch to alternative agent if ongoing issues ot see if able to tolerate (10) HTN (hypertension) with goal to be determined: Plan: prior was on metoprolol, lisinopril. patient reports has BP check machine at home but hasn't in a while and also hasn't been on medication --> Metoprolol started on admission,lisinopril added today given ECHO findings w/ reduction in EF and cardiology consulted Will need ongoing monitoring/management in follow up. Consideration to hold lisinopril in AM if cardiology wanting to start entresto vs cath for further eval given new reduction in EF Plan continued inpatient stay, hopeful dc in AM pending cards consultation with outpatient follow up Admission and Anticipated Discharge Date Admission Date: August 25, 2023 Supervising Physician Co-Signing Physician Notes The patient was not seen by me. The chart was reviewed. Case discussed with ERICA Mirza. Agree with assessment and plan Subjective Patient evaluated this morning, resting in bed. No CP, intermittent cough/SOB but no increased LE edema and 99% on RA Initially was planning to dc on beta janis/statin/aspirin and monitoring of BP w/ addition of lisinopril if needed however ECHO resulting w/ new reduction in EF and wanting to have cardiology consultation/eval to consider if needing to undergo cardiac catheterization for evaluation. BP presently 148/87. Avoidance of alcohol/cough syrup (reported drinking a bottle) and marijuana use. Questions/concerns addressed at this time. Physical Exam Physical Exam: General: WD/WN 38yo male, looks older than stated age, resting in bed, NAD HEENT: head atraumatic, normocephalic, mmm, trachea midline Resp: slight diminished in bases but no w/c/r, 99% on RA CV: RRR, NSR on telemetry, +systolic murmur, no significant LE edema, no calf tenderness GI: +BS, soft/NT MSK/Neuro: nonfocal, answering questions appropriately, no slurred speech/facial droop Psych: AOx3, cooperative with exam Results & Data Results & Data Vital Signs (Past 12 Hours) Vital Signs Temp Pulse Pulse Resp BP BP Pulse Ox 08/26/23 07:06 36.5 C 71 18 164/98 H 98 08/26/23 02:40 36.5 C 59 L 18 168/98 H 98 08/25/23 23:00 36.7 C 66 20 157/83 H 98 08/25/23 22:17 69 O2 Del Method 08/26/23 07:06 Room Air 08/26/23 02:40 Room Air 08/25/23 23:00 Room Air 08/25/23 22:17 Laboratory Results 08/26/23 08/25/23 08/25/23 Range/Units 06:16 14:25 14:25 WBC 6.92 (4.8-10.8) K/ul RBC 4.99 (4.70-6.10) M/uL Hgb 15.0 (14.0-18.0) g/dl Hct 43.6 (42.0-52.0) % MCV 87.4 (80.0-100.0) fL MCH 30.1 (25.0-34.0) pg MCHC 34.4 (32.0-36.0) g/dL RDW Std Deviation 44.5 (36.4-46.3) fL RDW Coeff of Liz 13.8 (11.5-14.5) % Plt Count 233 (130-400) K/uL MPV 11.3 (9.4-12.4) fL Immature Gran % (Auto) 0.1 % Neut % (Auto) 70.0 % Lymph % (Auto) 15.9 % [place] % (Auto) 7.9 % Eos % (Auto) 5.2 % Baso % (Auto) 0.9 % Neut # (Auto) 4.84 (1.40-6.50) K/uL Lymph # (Auto) 1.10 L (1.20-3.40) K/uL [place] # (Auto) 0.55 (0.11-0.59) K/uL Eos # (Auto) 0.36 (0.00-0.50) K/uL Baso # (Auto) 0.06 (0.00-0.20) K/uL Immature Gran # (Auto) 0.01 (0.01-0.20) K/uL Sodium 140 138 (136-145) mmol/L Potassium 3.4 L 3.5 (3.5-5.1) mmol/L Chloride 107 105 (98-107) mmol/L Carbon Dioxide 26 27 (21-32) mmol/L Anion Gap 7 6 (3-11) BUN 15 14 (6-23) mg/dl Creatinine 0.76 D 1.24 (0.6-1.4) mg/dl Est Cr Clr Drug Dosing 120.8 74.0 ml/min Est GFR ( Amer) 132.3 83.8 ml/min Est GFR (Non-Af Amer) 114.1 72.3 ml/min BUN/Creatinine Ratio 19.7 11.3 (10-20) Glucose 114 H 101 H (70-99(Fasting)) mg/dl Estimat Average Glucose 88 mg/dl Hemoglobin A1c 4.7 (4.5-5.6) % Calcium 8.9 8.6 (8.6-10.3) mg/dl Phosphorus 2.3 L (2.5-4.9) mg/dl Magnesium 2.4 2.3 (1.7-2.4) mg/dl Troponin I High Sens Cancelled 34.8 H (0-20) pg/ml Albumin 4.0 (3.4-5.0) gm/dl Triglycerides 109 (0-150) mg/dl Cholesterol 225 H (0-200) mg/dl LDL Cholesterol, Calc 152 mg/dl VLDL Cholesterol, Calc 22 (0-30) mg/dl HDL Cholesterol 51 mg/dl Cholesterol/HDL Ratio 4.4 (0-5) Diagnostic Findings ECHOCARDIOGRAM 08/25/2023 Left ventricular systolic function is moderately reduced. There is moderate global hypokinesis of the left ventricle. Mild aortic regurgitation. Mild mitral regurgitation. RVSP is elevated at 40-50mmHg. Mild aortic root dilatation. PG Care Time/CCT Total # of Minutes Spent Total Time Spent with Patient: Total time spent is greater than 50% in coordination of care (as documented) at patient's floor/unit and/or counseling patient: Coding Level of Care Code 43747 SUB INP/OBS CARE 3/50MIN Diagnoses NSTEMI (non-ST elevated myocardial infarction) I21.4 Elevated troponin R77.8 Polysubstance abuse F19.10 Tachycardia R00.0 Confusion R41.0 Elevated blood pressure reading without diagnosis of hypertension R03.0 B12 deficiency E53.8 Colloid cyst of brain Q04.6 HLD (hyperlipidemia) E78.5 HTN (hypertension) with goal to be determined I10
[2023-08-26 07:56] LABS: Estimated Average Glucose 88 mg/dl; Hemoglobin A1C 4.7 % (4.5-5.6)
[2023-08-26 08:32] LABS: Magnesium 2.4 mg/dl (1.7-2.4)
[2023-08-26] MEDS ORDERED: POTASSIUM PHOS 3 MMOL/1 ML INFUSION IV STA (09:07)
[2023-08-26] MEDS: METOPROLOL SUCC 50MG EXT REL TAB PO SCH (09:52)
[2023-08-26] MEDS: POTASSIUM PHOSPHATE 9 MMOL in SODIUM CHLORIDE 0.9% 250 ML IV ONE (10:11)
--- NOTE | 2023-08-26 13:38 | Discharge Summary ---
Date of Service August 26, 2023 Admission HPI Per Admitting Provider The patient is a 38-year-old male with a past medical history eluding elevated blood pressure reading without diagnosis of hypertension, history of polysubstance abuse, history of dextromethorphan overdose, NSTEMI, sialoadenitis of submandibular gland, depression, cocaine abuse and marijuana use. As part of his workup, he underwent laboratories showing potassium 3.4, troponin initially 27.9 with follow-up 35.4, and urine drug screen positive for marijuana. 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 Patient was referred to the hospitalist service for further assessment. Discharge Data Allergies Allergy/AdvReac Type Severity Reaction Status Date / Time No Known Allergies Allergy Verified 08/25/23 08:03 Consultations 08/25/23 05:37 ED Decision to Admit Stat Ordered Studies 08/25/23 02:36 CT head/brain wo con Stat 08/25/23 05:57 MRI Brain [MR brain wo/w con] Stat Hospital Course (1) Elevated blood pressure reading without diagnosis of hypertension: (2) Polysubstance abuse: (3) NSTEMI (non-ST elevated myocardial infarction): (4) Elevated troponin: (5) Tachycardia: (6) Confusion: Plan NSTEMI/elevated troponin/elevated blood pressure without diagnosis of hypertension- The patient will be admitted to telemetry for serial cardiac enzymes, serial EKG's, cardiac rhythm monitoring and a 2-D echocardiogram with Dopplers. Troponin initially 27.9, with follow-up 35.4 When patient was admitted on 11/29/2020, he was also found to have an elevated blood pressure without diagnosis of hypertension at that time as well, was placed on medications at that time, and was evidently lost to follow-up in the outpatient setting Start metoprolol succinate 50 mg p.o. this morning, and continue every morning Unclear the relationship between cardiac status and his confused state Patient remaining AOx3, eval in room 237, laying in bed. Reports he did take some Delsym yesterday for cough in setting of medical marijuana vape but "not to mess himself up" and had a long day of car struggles and frustrations leading to his agitation. Tolerating diet. No fever/chills, chest pain, abdominal pain, nausea. VSS exception of BP to 182/136. GIven metoprolol 50mg PO this morning as well as baby aspirin 81mg. Patient reporting he has BP measurement device at home but reports hasn't used in a while and not on BP medication at baseline. +Hydralazine added prn IVF to be discontinued. BUN/Cr 14/1.24, tolerating diet. K 3.5 on repeat. Trop minimal elevation, suspect demand ischemia 2nd to HTN. Trop 35.4--> 37.7--> 34.8, denies CP at this time. continue to monitor on telemetry UDS + marijuana, alcohol negative. Tylenol level not elevated. CT head IMPRESSION: No evidence of acute intracranial pathology.Tiny colloid cyst at the foramen on measuring 3.8 x 3.8 mm without evidence of obstructive hydrocephalus at this time. MRI brain IMPRESSION: 1. No acute intracranial abnormality. No acute or subacute infarct. 2. 4 mm ovoid structure within the third ventricle is unchanged dating back to the head CT from 04/07/2023 and may represent a small colloid cyst versus normal choroid plexus. 3. No hydrocephalus. MRI UNCHANGED from prior, can arrange outpt f/u B12 check was LOW at 160 --> IM replacement ordered and should be on PO at dc Discussed monitoring BP/status overnight but if stable/improvement w/ medication s coming out of his system can consider dc tomorrow. Added lipid panel/a1c for risk/stratification given prior NSTEMI Chol 225, prior statin w/ myalgias but sent for 40mg Metoprolol 25mg PO BID w/ monitoring of BP at home and if elevated consideration for adding back prior lisinopril Rec to AVOID cough syrup as well as marijuana use Continue ASPIRIN 81mg daily PCP f/u 7-10 days Confusion- Evaluation to this point does not suggest infection, although some testing is still pending CT scan of head without contrast is negative for stroke, but does note a tiny colloid cyst at the foramen magnum measuring 3.8 x 3.8 mm without evidence of obstructive hydrocephalus at this time Will order MRI of brain with and without contrast to assess for possible early NPH, versus Chiari malformation versus normal variation Will consult neurology if necessary Patient recounts a complicated story that took place yesterday, where he had to drive his car for work from [employer] to [place], where the car broke down, and could not be brought back to [place] until this afternoon, and so his uncle and aunt came to pick him up and brought him back to [place]. After his uncle and aunt left, he went to go to [facility] to buy groceries via Uber He later went to [facility], because his phone ran out of charge, and was going to buy a access rep there. He became confused while he was at [facility], which he attributes to a long day, and police were contacted and brought him to the emergency department for assessment. Polysubstance abuse history Urine drug screen is only positive for marijuana Marijuana intoxication could certainly be responsible for or contributing to his confusion symptoms Alcohol level was negative, but patient does not show active signs of alcohol withdrawal, and denies any recent use of alcohol [employer] testing negative Discharge Plan Discharge Items Reason For Visit: ELEVATED TROPONIN, CONFUSION Condition on Discharge: Good Follow-up/Referrals: Vincent Sloan CRNP [Primary Care Provider] - [place] Attending Provider Instructions: You have been hospitalized for Your blood pressure was very elevated and review of prior outpatient notes indicates you were on both metoprolol and lisinopril. We have restarted metoprolol and you should continue this and checking your blood pressure routinely at home. You can follow up with primary care about further increasing this as needed or adding back prior lisinopril. We have started you back on aspirin and you should continue this daily. Given your family history of heart disease, it is very important to maintain good blood pressure and medication compliance. Your cholesterol level was elevated and we are restarting medication for this. Your B12 level was low and we gave you a shot in the belly to help with this and you should continue this by mouth once daily. This can be from alcohol use and would avoid such. Avoiding smoking and cough syrup, especially in combination, is recommended. We recommend you have follow up with primary care in the next 7-10 days after discharge. Please return to the ER with any confusion/weakness, fever/chills, lightheaded/dizziness or any other symptoms concerning for you. It has been a pleasure being a part of the medical team providing for you while you have been in the hospital. Medications and DC Order Prescriptions: New cyanocobalamin (vitamin B-12) 1,000 mcg capsule 1,000 mcg PO DAILY Qty: 30 0RF metoprolol tartrate 25 mg tablet 25 mg PO BID Qty: 60 0RF aspirin 81 mg capsule 81 mg PO DAILY Qty: 30 0RF atorvastatin 40 mg tablet 40 mg PO DAILY Qty: 30 0RF Admission Data Admit Date/Time: 08/25/23 06:09 Attending Provider: Gary Huang Admit Provider: Aram Armendariz Primary Care Provider: Vincent Sloan Other Providers: Aram Armendariz Coding Diagnoses Elevated blood pressure reading without diagnosis of hypertension R03.0 Polysubstance abuse F19.10 NSTEMI (non-ST elevated myocardial infarction) I21.4 Elevated troponin R77.8 Tachycardia R00.0 Confusion R41.0
[2023-08-26] MEDS: lisinopril 5 MG TAB PO SCH (15:36)
[2023-08-26] MEDS: ATORVASTATIN 40 MG TAB PO SCH (15:36)
[2023-08-26] MEDS: HEPARIN SOD 5,000 UNIT/0.5 ML VIAL SQ SCH (21:09)
[2023-08-27 05:22] LABS: Marijuana Quant, GCMS Urine 1170 ng/mL (<5)
[2023-08-27 06:37] LABS: Basophils # (auto) 0.04 K/uL (0.00-0.20); Basophils % (auto) 0.6 %; Eosinophils # (auto) 0.35 K/uL (0.00-0.50); Eosinophils % (auto) 5.5 %; Hematocrit (blood only) 45.1 % (42.0-52.0); Hemoglobin 15.4 g/dl (14.0-18.0); Immature Granulocytes # (auto) 0.01 K/uL (0.01-0.20); Immature Granulocytes % (auto) 0.2 %; Lymphocytes # (auto) 1.38 K/uL (1.20-3.40); Lymphocytes % (auto) 21.9 %; Mean Corpuscular Hgb Conc 34.1 g/dL (32.0-36.0); Mean Corpuscular Volume 87.7 fL (80.0-100.0); Mean Platelet Volume 10.7 fL (9.4-12.4); Monocytes # (auto) 0.49 K/uL (0.11-0.59); Monocytes % (auto) 7.8 %; Neutrophils # (auto) 4.04 K/uL (1.40-6.50); Platelet Count 231 K/uL (130-400); RDW Standard Deviation 45.3 fL (36.4-46.3); Red Blood Count 5.14 M/uL (4.70-6.10); White Blood Count 6.31 K/ul (4.8-10.8)
[2023-08-27 06:58] LABS: Albumin Level 3.8 gm/dl (3.4-5.0); BUN Creatinine Ratio 16.9 (10-20); Calcium 9.3 mg/dl (8.6-10.3); Creatinine Clr Calc Pharmacy 103.2 ml/min; Magnesium 2.3 mg/dl (1.7-2.4); Potassium 3.5 mmol/L (3.5-5.1)
[2023-08-27 07:04] LABS: Troponin I High Sensitivity 15.5 pg/ml (0-20)
--- NOTE | 2023-08-27 07:50 | Hospitalist Progress Note ---
Date of Service August 27, 2023 Assessment & Plan (1) NSTEMI (non-ST elevated myocardial infarction): Plan: - Initially admitted 2nd to AMS/confusion after agitation w/ plasma processing technician following car troubles/transportation and taking bottle of Delsym (initially denied, then said 1/2 bottle, then today reporting drank whole bottle. has had issues w/ this in the past) however mentation clear and AOx3, and denied any SI/HI at this time. CT/MRI of brain WITHOUT evidence for acute CVA, suspect TIA/drug use contributed to confusion and rec to avoid. NSTEMI/elevated troponin/elevated blood pressure without diagnosis of hypertension * (however actually does have hx elevated BP/to be on metoprolol/lisinopril following prior NSTEMI and apparently lost to follow up despite reporting to me he does see his PCP) ECHOCARDIOGRAM w/ -Left ventricular systolic function is moderately reduced (EF 30-35%) There is moderate global hypokinesis of the left ventricle. Mild aortic regurgitation. Mild mitral regurgitation. RVSP is elevated at 40-50mmHg. Mild aortic root dilatation. Started on metoprolol succinate 50mg daily, aspirin 81mg, continued BPs w/ SIGNIFICANT improvement 148/87 Trop 27.9--> 35.4 --> 37.7 and trended down on repeat w/ improvement in BP control to 34.8. HOWEVER, given ECHO findings--> consultation placed for cardiology to consider further evaluation will add lisinopril 5mg daily -Hydralazine available prn Lipid panel checked given prior statin therapy -- Cholesterol elevated to 225, LDL 152. HDL 51. TRG 109 - Added lipitor 40mg PO daily for now given prior myalgias reported A1c not elevated, 4.7 Continue telemetry monitoring for now (has been NSR). Denies CP at present but EKG to be obtained if occurs Hopeful dc in AM w/ outpatient follow up 08/26 Cards consult pending, EKG w/ some ST changes and troponins added back for comparison however denied CP. Troponins not elevated on repeat since improvement in his blood pressure however is elevated this morning 158/96 but has not gotten his AM medications yet (2) Elevated troponin: Plan: suspect demand ischemia from significant HTN and improvement w/ BP control and denied CP however ECHO as above and cards consult placed EKG w/ CP, tele monitoring continue asa 81 daily, metoprolol, added lisinopril given echo and cholesterol labs adding statin and consider increasing to 80 if tolerating but reported issues w/ myalgias int he past (3) Polysubstance abuse: Plan: as above, smoking and cough syrup use UDS + marijuana, alcohol negative. Tylenol level not elevated. CT head IMPRESSION: No evidence of acute intracranial pathology.Tiny colloid cyst at the foramen on measuring 3.8 x 3.8 mm without evidence of obstructive hydrocephalus at this time. MRI brain IMPRESSION: 1. No acute intracranial abnormality. No acute or subacute infarct. 2. 4 mm ovoid structure within the third ventricle is unchanged dating back to the head CT from 04/07/2023 and may represent a small colloid cyst versus normal choroid plexus. 3. No hydrocephalus. MRI UNCHANGED from prior, can arrange outpt f/u can consider liason consult if needed but AOx3 and cooperative at this time and denied SI/HI. Rec to avoid cough syrup/marijauna and outpt psych f/u rec (4) Tachycardia: Plan: 2nd to medication use/confusion/agitation w/ polive (5) Confusion: Plan: back to baseline WBC normalized/afebrile. tx as above (6) Elevated blood pressure reading without diagnosis of hypertension: Plan: IMPROVED, see med changes as above (7) B12 deficiency: Plan: checked due to confusion, ?prior alcohol use. Denied current use, alcohol level not elevated on admission. TSH wnl but B12 LOW @ 160--> IM replacement ordered and should be on PO at dc (8) Colloid cyst of brain: Plan: as noted above, outpt f/u (9) HLD (hyperlipidemia): Plan: as above, cholesterol panel w/ elevated cholesterol to 225/LDL 152 and lipitor restarted as taking prior but at lower dose given myalgias but ideally be on 80mg daily. could consider switch to alternative agent if ongoing issues ot see if able to tolerate (10) HTN (hypertension) with goal to be determined: Plan: prior was on metoprolol, lisinopril. patient reports has BP check machine at home but hasn't in a while and also hasn't been on medication --> Metoprolol started on admission,lisinopril added today given ECHO findings w/ reduction in EF and cardiology consulted Will need ongoing monitoring/management in follow up. Consideration to hold lisinopril in AM if cardiology wanting to start entresto vs cath for further eval given new reduction in EF Plan continued inpatient stay, hopeful dc in AM pending cards consultation with outpatient follow up Admission and Anticipated Discharge Date Admission Date: August 25, 2023 Results & Data Results & Data Vital Signs (Past 12 Hours) Vital Signs Temp Pulse Pulse Resp BP BP Pulse Ox 08/27/23 07:24 64 08/27/23 07:15 36.7 C 70 18 158/96 H 97 08/27/23 03:04 36.6 C 64 20 138/78 98 08/27/23 00:00 70 08/26/23 23:01 36.6 C 64 20 144/81 H 98 O2 Del Method 08/27/23 07:24 08/27/23 07:15 Room Air 08/27/23 03:04 Room Air 08/27/23 00:00 08/26/23 23:01 Room Air PG Care Time/CCT Total # of Minutes Spent Total Time Spent with Patient: Total time spent is greater than 50% in coordination of care (as documented) at patient's floor/unit and/or counseling patient: Coding Diagnoses NSTEMI (non-ST elevated myocardial infarction) I21.4 Elevated troponin R77.8 Polysubstance abuse F19.10 Tachycardia R00.0 Confusion R41.0 Elevated blood pressure reading without diagnosis of hypertension R03.0 B12 deficiency E53.8 Colloid cyst of brain Q04.6 HLD (hyperlipidemia) E78.5 HTN (hypertension) with goal to be determined I10
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
--- NOTE | 2023-08-27 16:48 | Cardiology Consultation ---
Date of Consultation August 27, 2023 Assessment & Plan (1) Left ventricular dysfunction: -LVEF 30-35% on current echocardiogram. -walks long distances without exertional angina pectoris. -do not feel this is from coronary ischemia. -agree with metoprolol succinate and lisinopril. -we are happy to see him in follow-up as an outpatient. (2) CAD (coronary artery disease): -s/p RCA VAMSHI and LCx VAMSHI x2, December 2019. -has been asymptomatic since that time. (3) HTN (hypertension) with goal to be determined: -adequate control on current regimen. (4) HLD (hyperlipidemia): -continue atorvastatin. History of Present Illness Attending Physician: Brianna Ackerman MD History of Present Illness Mr. Garcia is a 38-year-old male admitted August 24 with confusion and and elevated blood pressure. An echocardiogram was performed which was abnormal, therefore, this consultation was ordered. The patient was in his usual state of health until the day of admission. He was found at the [facility] parking lot confused and agitated. He is brought to the emergency room by the bone basis. On arrival here, his blood pressure was as high as 180/120. Hospitalization was recommended. An echocardiogram was performed on the day of admission and noted moderate left ventricular dysfunction with ejection fraction of 30-35%. There was global hypokinesis and mild aortic insufficiency. He did have an echocardiogram performed back in December 2019 which noted an ejection fraction of 40-45%. The patient does carry a history of coronary artery disease having suffered an inferior PR back in December 2019. He had a VAMSHI placed in the mid RCA and then a stage procedure which resulted in to VAMSHI in the mid LCx. Unfortunately the patient was lost to follow-up after that hospitalization. The patient explains that he is quite active on a daily basis. He often walks a total of 3 miles to and from work. He has never experienced exertional chest pain or limiting dyspnea. He further denies syncope, presyncope, PND, orthopnea, palpitations, lower extremity edema, and claudication. Currently, patient is resting comfortably in bed and without complaints. Past medical and surgical history 1. Coronary artery disease-see above 2. Mid RCA VAMSHI-December 2019 3. Mid LCx VAMSHI times 12 December 2019 4. Hypertension 5. Hypercholesterolemia 6. Ischemic [id number]%, December 2019 7. Vitamin-B deficiency 8. Polysubstance abuse 9. Anxiety/depression Social history Single Smokes 1/2 pack cigarettes daily Rare alcohol Family history Father in his 50s from an PR Mother is 70 and healthy Review of systems A 10 review of systems was undertaken and negative except for that described above. Allergies Allergy/AdvReac Type Severity Reaction Status Date / Time No Known Allergies Allergy Verified 08/25/23 08:03 Home Medications Medication Instructions Recorded Confirmed Type aspirin 81 mg capsule 81 mg PO DAILY #30 caps 08/26/23 Rx atorvastatin 40 mg tablet 40 mg PO DAILY #30 tabs 08/26/23 Rx cyanocobalamin (vitamin B-12) 1,000 mcg PO DAILY #30 caps 08/26/23 Rx 1,000 mcg capsule lisinopril 5 mg tablet (Zestril) 5 mg PO QAM #30 tabs 08/27/23 Rx metoprolol succinate 50 mg 50 mg PO QAM #30 tabs 08/27/23 Rx tablet,extended release 24 hr Patient History Surgical History History of dental surgery No pertinent past surgical history Social History Smoking Status: Current every day smoker Tobacco Type: Cigarettes Cigarettes Per Day: 10; Second Hand Exposure: Yes; Do You Dip or Chew Tobacco: No; Hx Alcohol Use: Yes Alcohol type: beer Hx Substance Use: Yes Last Used Substance: Just Prior to Arrival Last Used Substance Other:: Patient believes a year ago Preferred Language: Greek Communication Ability: Effective Supervisor Communications And Signals Required: No Beliefs That Will Affect Care: None Current Living Situation: Alone Current Living Situation Comment: Roomate Feels Safe at Home: Yes Assistive Devices: None Physical Exam Physical Exam: In general this is a well-developed well-nourished white male in no acute distress. HEENT exam is negative. Neck is supple with full carotid upstrokes. There are no carotid bruits. Jugular venous pressure is flat at 90. There is no thyromegaly. Cardiovascular exam reveals a regular rhythm with a normal S1 and S2. No S3, S4, or murmurs are noted. Lungs are clear without rales, rhonchi, or wheezes. Abdomen is soft and nontender without bruits. Extremities reveal intact radial artery and posterior tibial pulses bilaterally. There is no peripheral edema. Results & Data Vital Signs (Past 12 Hours) Vital Signs Temp Pulse Pulse Resp BP BP Pulse Ox 08/27/23 12:16 36.7 C 70 18 138/78 158/96 H 97 08/27/23 07:24 64 08/27/23 07:15 36.7 C 70 18 158/96 H 97 O2 Del Method 08/27/23 12:16 08/27/23 07:24 08/27/23 07:15 Room Air Laboratory Results High sensitivity troponin peaked at 37.7. Diagnostic Findings Echocardiogram notes moderate left ventricular dysfunction with ejection fraction of 30-35%. There was global hypokinesis along with mild aortic insufficiency. The aortic root was dilated at 4.0 cm in diameter. EKG notes sinus rhythm with an anterolateral ST and T-wave abnormality. Chest x-ray shows no acute disease. PG Care Time/CCT Total # of Minutes Spent Total Time Spent with Patient: Total time spent is greater than 50% in coordination of care (as documented) at patient's floor/unit and/or counseling patient: Coding Level of Care Code 84224 IN/OBS CONSULT LVL 4,60M Diagnoses Left ventricular dysfunction I51.9 CAD (coronary artery disease) I25.10 HTN (hypertension) with goal to be determined I10 HLD (hyperlipidemia) E78.5
--- NOTE | 2023-08-27 17:00 | Electrocardiogram Report ---
Test Reason : Blood Pressure : / mmHG Vent. Rate : 065 BPM Atrial Rate : 065 BPM P-R Int : 154 ms QRS Dur : 096 ms QT Int : 440 ms P-R-T Axes : 055 024 121 degrees QTc Int : 457 ms Normal sinus rhythm Possible Inferior infarct , age undetermined Abnormal ECG When compared with ECG of 25-AUG-2023 06:05, No significant change was found Confirmed by Scott Saavedra ([id number]) on 08/27/2023 5:00:03 PM Referred By: REFERRED SELF Confirmed By:Scott Saavedra
[2023-08-27 18:17] LABS: Anti Nuclear Antibody Screen NEGATIVE (NEGATIVE)
== END 2023-08-27 14:21 | disposition home or self-care (01) ==
LOC: ED 02:25 → EDINP 02:25 → SUATTDRO 06:09 → 2S 07:44